=== PATIENT | female | born 1950 | race African-American/Black ===

== ENCOUNTER 2020-01-12 10:52 | Inpatient (IN) | payer OTHER ==
[~2020-01-12] VITALS: Ht 162.6 cm; Wt 92.6 kg
[2020-01-12] MEDS ORDERED: ASPirin 81 mg TAB PO ONE (11:15)
[2020-01-12 11:24] LABS: Basophils # (auto) 0 10 ^3/uL (0-0.2); Basophils % (auto) 0.5 % (0.0-2.0); Eosinophils # (auto) 0.3 10 ^3/uL (0-0.8); Hemoglobin 9.2 g/dL (12.2-16.2); Lymphocytes # (auto) 1.2 10 ^3/uL (0.4-5.4); Mean Corpuscular Hgb Conc. 30.9 g/dL (32.0-36.0); Monocytes # (auto) 0.4 10 ^3/uL (0-1.3)
[2020-01-12 11:25] LABS: Eosinophils % (auto) 3.5 % (0.0-7.0); Hematocrit 29.6 % (36.0-46.0); Lymphocytes % (auto) 14.2 % (10.0-50.0); Mean Corpuscular Hemoglobin 20.5 pg (28.0-32.0); Mean Corpuscular Volume 66.1 fL (80.0-100.0); Monocytes % (auto) 4.7 % (0.0-12.0); Neutrophils # (auto) 6.7 10 ^3/uL (1.6-8.6); Neutrophils % (auto) 77.1 % (37.0-80.0); Nucleated Red Blood Cells % 0.1 %; Platelet Count (auto) 371 10^3/uL (140-450); Red Blood Cells 4.48 10^6/uL (4.0-5.20); White Blood Cell 8.7 10^3/uL (4.4-10.8)
[2020-01-12 11:27] LABS: Red Cell Distribution Width 20.1 % (11.8-14.3)
[2020-01-12 11:41] LABS: Albumin 3.3 g/dL (3.4-5.0); Calcium 8.3 mg/dL (8.5-10.1); Magnesium 2.1 mg/dL (1.6-2.6); Potassium 3.4 mmol/L (3.5-5.1)
[2020-01-12 11:49] LABS: BUN/Creatinine Ratio 9.9; Bilirubin, Total 0.3 mg/dL (0.2-1.0); Total Protein 7.6 g/dL (6.4-8.2)
[2020-01-12] MEDS ORDERED: MORPHINE SULF INJ 2 MG/ML SYRINGE 1ML IV PRN (13:15)
[2020-01-12] MEDS ORDERED: ACETAMINOPHEN 500 MG TAB PO PRN (13:15)
[2020-01-12] MEDS ORDERED: IPRATROPIUM BROM 0.5 MG/2.5ML INH SOL NEB PRN (13:15)
[2020-01-12] MEDS ORDERED: ALBUTEROL SULF 2.5 MG/0.5ML(0.5%) NEB SOLN NEB PRN (13:15)
[2020-01-12] MEDS ORDERED: ONDANSETRON HCL 4 MG/2 ML VIAL IV PRN (13:15)
[2020-01-12] MEDS ORDERED: SOD CHL 0.9%/ KCL 40MEQ 1,000 ML IV ONE (13:15)
[2020-01-12] MEDS ORDERED: NITROGLYCERIN 0.4 MG SL TAB SL PRN (13:15)
[2020-01-12] MEDS ORDERED: IOHEXOL 350 MG/ML 100ML IJ ONE (13:36)
[2020-01-12 13:48] LABS: % Iron Saturation 8.6 % (15-50)
[2020-01-12 13:50] LABS: Cholesterol 156 mg/dL (< 200); HDL Cholesterol 38 mg/dL (40-59); LDL Cholesterol 106 mg/dL (< 100); Triglycerides 88 mg/dL (< 150)
[2020-01-12] MEDS: cefTRIAXone 1GM/50ML D5W 50 ML IV SCH (14:12)
[2020-01-12] MEDS: HYDROcodone-ACET 5/325MG TAB PO PRN ×2 (14:12→21:13)
[2020-01-12] MEDS: AZITHROMYCIN 500MG/ 250ML 250 ML IV SCH (15:14)
[2020-01-12 15:35] VITALS: BP 160/95
[2020-01-12 16:27] VITALS: BP 161/70
[2020-01-12] MEDS: ENALAPRIL MALEATE 2.5 MG TAB PO PRN (18:07)
[2020-01-12] MEDS: MORPHINE SULF INJ 2 MG/ML SYRINGE 1ML IV PRN ×2 (18:19→23:16)
[2020-01-12] MEDS: FERROUS SULFATE 325 MG TAB PO SCH (18:19)
[2020-01-12] MEDS: IPRATROPIUM BROM 0.5 MG/2.5ML INH SOL NEB SCH (19:58)
[2020-01-12] MEDS: ALBUTEROL SULF 2.5 MG/0.5ML(0.5%) NEB SOLN NEB SCH (19:58)
[2020-01-12 22:00] VITALS: BP 138/67
[2020-01-13] MEDS: HYDROcodone-ACET 5/325MG TAB PO PRN (03:47)
[2020-01-13 05:00] VITALS: BP 115/68
[2020-01-13] MEDS: ALBUTEROL SULF 2.5 MG/0.5ML(0.5%) NEB SOLN NEB SCH ×3 (06:13→19:05)
[2020-01-13] MEDS: IPRATROPIUM BROM 0.5 MG/2.5ML INH SOL NEB SCH ×3 (06:13→19:05)
[2020-01-13] MEDS: FERROUS SULFATE 325 MG TAB PO SCH ×2 (08:20→18:30)
[2020-01-13] MEDS: cefTRIAXone 1GM/50ML D5W 50 ML IV SCH (08:30)
[2020-01-13] MEDS: MORPHINE SULF INJ 2 MG/ML SYRINGE 1ML IV PRN ×3 (08:45→23:58)
[2020-01-13] MEDS: amLODIPine BESYLATE 5 MG TAB PO SCH (10:00)
[2020-01-13 10:10] VITALS: BP 104/59
[2020-01-13] MEDS: FAMOTIDINE 20 MG TAB PO SCH (11:19)
[2020-01-13] MEDS: AZITHROMYCIN 500MG/ 250ML 250 ML IV SCH (11:19)
[2020-01-13] MEDS ORDERED: POTASSIUM EFFERVESENT TAB 25 MEQ PO ONE (11:30)
[2020-01-13 12:35] VITALS: BP 111/67
[2020-01-13 17:00] VITALS: BP 142/73
[2020-01-13 20:23] LABS: Urine Bacteria NONE SEEN /hpf (None Seen); Urine Blood Negative /uL (Negative); Urine Specific Gravity 1.018 (1.001-1.035); Urine WBC 1 /hpf (0 - 5)
[2020-01-13 22:00] VITALS: BP 152/77
[2020-01-14 05:00] VITALS: BP 162/73
[2020-01-14] MEDS: ENALAPRIL MALEATE 2.5 MG TAB PO PRN (05:04)
[2020-01-14 07:01] LABS: Basophils # (auto) 0.1 10 ^3/uL (0-0.2); Basophils % (auto) 0.9 % (0.0-2.0); Eosinophils # (auto) 0.3 10 ^3/uL (0-0.8); Eosinophils % (auto) 4.4 % (0.0-7.0); Hematocrit 26.7 % (36.0-46.0); Hemoglobin 8.3 g/dL (12.2-16.2); Lymphocytes # (auto) 1.3 10 ^3/uL (0.4-5.4); Lymphocytes % (auto) 18.3 % (10.0-50.0); Mean Corpuscular Hemoglobin 20.4 pg (28.0-32.0); Mean Corpuscular Volume 65.6 fL (80.0-100.0); Monocytes # (auto) 0.4 10 ^3/uL (0-1.3); Monocytes % (auto) 5.7 % (0.0-12.0); Neutrophils % (auto) 70.7 % (37.0-80.0); Platelet Count (auto) 344 10^3/uL (140-450); Red Blood Cells 4.07 10^6/uL (4.0-5.20); Red Cell Distribution Width 20.4 % (11.8-14.3)
[2020-01-14] MEDS: IPRATROPIUM BROM 0.5 MG/2.5ML INH SOL NEB SCH ×3 (07:11→18:49)
[2020-01-14] MEDS: ALBUTEROL SULF 2.5 MG/0.5ML(0.5%) NEB SOLN NEB SCH ×3 (07:12→18:49)
[2020-01-14 07:13] LABS: Potassium 3.9 mmol/L (3.5-5.1)
[2020-01-14 07:18] LABS: INR 0.94 (0.9-1.15)
[2020-01-14 07:25] LABS: BUN/Creatinine Ratio 13.5; Calcium 8.4 mg/dL (8.5-10.1)
[2020-01-14 08:42] VITALS: BP 149/69
[2020-01-14] MEDS: FERROUS SULFATE 325 MG TAB PO SCH ×2 (08:45→16:52)
[2020-01-14] MEDS: amLODIPine BESYLATE 5 MG TAB PO SCH (08:46)
[2020-01-14] MEDS: FAMOTIDINE 20 MG TAB PO SCH (08:46)
[2020-01-14] MEDS: cefTRIAXone 1GM/50ML D5W 50 ML IV SCH (08:47)
[2020-01-14] MEDS: MORPHINE SULF INJ 2 MG/ML SYRINGE 1ML IV PRN (08:48)
[2020-01-14] MEDS: HYDROcodone-ACET 5/325MG TAB PO PRN ×3 (11:23→20:38)
[2020-01-14] MEDS: AZITHROMYCIN 500MG/ 250ML 250 ML IV SCH (11:23)
[2020-01-14 13:01] VITALS: BP 141/70
[2020-01-14 16:29] VITALS: BP 142/68
[2020-01-14 20:00] VITALS: BP 133/59
[2020-01-14 22:00] VITALS: BP 133/59
[2020-01-15] VITALS (8 sets, daily range): BP systolic 144–162; BP diastolic 63–80
[2020-01-15] MEDS: MORPHINE SULF INJ 2 MG/ML SYRINGE 1ML IV PRN ×3 (03:15→16:10)
[2020-01-15] MEDS: ENALAPRIL MALEATE 2.5 MG TAB PO PRN ×2 (05:02→16:33)
[2020-01-15] MEDS: ALBUTEROL SULF 2.5 MG/0.5ML(0.5%) NEB SOLN NEB SCH ×3 (06:06→19:00)
[2020-01-15] MEDS: IPRATROPIUM BROM 0.5 MG/2.5ML INH SOL NEB SCH ×3 (06:06→19:00)
[2020-01-15] MEDS: FERROUS SULFATE 325 MG TAB PO SCH ×2 (08:50→17:44)
[2020-01-15] MEDS: FAMOTIDINE 20 MG TAB PO SCH (09:16)
[2020-01-15] MEDS: AZITHROMYCIN 250 MG TAB PO SCH (09:17)
[2020-01-15] MEDS: amLODIPine BESYLATE 5 MG TAB PO SCH (09:18)
[2020-01-15] MEDS ORDERED: ADENOSINE 82 MG in GIVE UN-DILUTED 0 ML IV STA (10:23)
[2020-01-16] VITALS (8 sets, daily range): BP systolic 124–162; BP diastolic 61–84
[2020-01-16] MEDS: ALBUTEROL SULF 2.5 MG/0.5ML(0.5%) NEB SOLN NEB SCH ×3 (06:00→19:08)
[2020-01-16] MEDS: IPRATROPIUM BROM 0.5 MG/2.5ML INH SOL NEB SCH ×3 (06:00→19:07)
[2020-01-16 07:20] LABS: Basophils # (auto) 0 10 ^3/uL (0-0.2); Basophils % (auto) 0.6 % (0.0-2.0); Hemoglobin 9.4 g/dL (12.2-16.2); Monocytes # (auto) 0.4 10 ^3/uL (0-1.3); Nucleated Red Blood Cells % 0.1 %
[2020-01-16 07:23] LABS: Eosinophils # (auto) 0.2 10 ^3/uL (0-0.8); Eosinophils % (auto) 4.1 % (0.0-7.0); Hematocrit 30.9 % (36.0-46.0); Lymphocytes # (auto) 1.2 10 ^3/uL (0.4-5.4); Lymphocytes % (auto) 20.9 % (10.0-50.0); Mean Corpuscular Hemoglobin 20.3 pg (28.0-32.0); Mean Corpuscular Hgb Conc. 30.4 g/dL (32.0-36.0); Mean Corpuscular Volume 66.8 fL (80.0-100.0); Monocytes % (auto) 6.8 % (0.0-12.0); Neutrophils # (auto) 3.9 10 ^3/uL (1.6-8.6); Neutrophils % (auto) 67.6 % (37.0-80.0); Platelet Count (auto) 355 10^3/uL (140-450); Red Blood Cells 4.62 10^6/uL (4.0-5.20); Red Cell Distribution Width 19.9 % (11.8-14.3); White Blood Cell 5.7 10^3/uL (4.4-10.8)
[2020-01-16 07:35] LABS: Calcium 8.5 mg/dL (8.5-10.1)
[2020-01-16 07:37] LABS: BUN/Creatinine Ratio 10.3
[2020-01-16] MEDS: MORPHINE SULF INJ 2 MG/ML SYRINGE 1ML IV PRN ×3 (07:47→17:45)
[2020-01-16] MEDS: FERROUS SULFATE 325 MG TAB PO SCH ×2 (07:47→17:44)
[2020-01-16] MEDS ORDERED: GOLYTELY 4L KIT PO ONE (10:30)
[2020-01-16] MEDS: FAMOTIDINE 20 MG TAB PO SCH (10:38)
[2020-01-16] MEDS: amLODIPine BESYLATE 5 MG TAB PO SCH (10:39)
[2020-01-16] MEDS: AZITHROMYCIN 250 MG TAB PO SCH (10:39)
[2020-01-16] MEDS: HYDROcodone-ACET 5/325MG TAB PO PRN (22:25)
[2020-01-17] MEDS: HYDROcodone-ACET 5/325MG TAB PO PRN ×2 (04:15→18:52)
[2020-01-17 05:00] VITALS: BP 149/60
[2020-01-17] MEDS ORDERED: GOLYTELY 4L KIT PO ONE (06:00)
[2020-01-17] MEDS: ALBUTEROL SULF 2.5 MG/0.5ML(0.5%) NEB SOLN NEB SCH ×3 (06:26→19:04)
[2020-01-17] MEDS: IPRATROPIUM BROM 0.5 MG/2.5ML INH SOL NEB SCH ×3 (06:26→19:04)
[2020-01-17] MEDS: FERROUS SULFATE 325 MG TAB PO SCH ×2 (08:00→18:48)
[2020-01-17 08:33] LABS: Eosinophils # (auto) 0.2 10 ^3/uL (0-0.8); Hematocrit 29.1 % (36.0-46.0); Lymphocytes # (auto) 0.8 10 ^3/uL (0.4-5.4); Mean Corpuscular Hemoglobin 20.5 pg (28.0-32.0); Monocytes # (auto) 0.3 10 ^3/uL (0-1.3); Nucleated Red Blood Cells % 0.1 %; Red Blood Cells 4.39 10^6/uL (4.0-5.20); White Blood Cell 5.6 10^3/uL (4.4-10.8)
[2020-01-17 08:35] LABS: Basophils # (auto) 0 10 ^3/uL (0-0.2); Basophils % (auto) 0.8 % (0.0-2.0); Eosinophils % (auto) 4.2 % (0.0-7.0); Lymphocytes % (auto) 14.1 % (10.0-50.0); Mean Corpuscular Volume 66.2 fL (80.0-100.0); Monocytes % (auto) 5.4 % (0.0-12.0); Neutrophils # (auto) 4.2 10 ^3/uL (1.6-8.6); Neutrophils % (auto) 75.5 % (37.0-80.0); Platelet Count (auto) 337 10^3/uL (140-450)
[2020-01-17 08:52] LABS: Calcium 8.4 mg/dL (8.5-10.1); Potassium 3.8 mmol/L (3.5-5.1)
[2020-01-17 08:57] LABS: BUN/Creatinine Ratio 9.3
[2020-01-17 09:00] VITALS: BP 126/75
[2020-01-17] MEDS: FAMOTIDINE 20 MG TAB PO SCH (10:00)
[2020-01-17] MEDS: AZITHROMYCIN 250 MG TAB PO SCH (10:00)
[2020-01-17] MEDS: amLODIPine BESYLATE 5 MG TAB PO SCH (10:00)
[2020-01-17] MEDS ORDERED: LIDOCAINE VISCOUS 2% 15ML UD ONE (10:51)
[2020-01-17] MEDS ORDERED: diphenhdrAMINE HCL 50 MG/1 ML VL ONE (10:52)
[2020-01-17] MEDS: fentaNYL CITRATE 100 MCG/2 ML VL ONE ×3 (11:09→11:16)
[2020-01-17] MEDS: MIDAZOLAM HCL 5 MG/ML-1ML VIAL ONE ×4 (11:09→11:24)
[2020-01-17] MEDS ORDERED: fentaNYL CITRATE 100 MCG/2 ML VL ONE (11:24)
[2020-01-17 12:58] VITALS: BP 129/69
[2020-01-17 16:45] VITALS: BP 150/81
[2020-01-17] MEDS: MORPHINE SULF INJ 2 MG/ML SYRINGE 1ML IV PRN (21:57)
[2020-01-17 22:00] VITALS: BP 146/85
[2020-01-18] MEDS ORDERED: TEMAZEPAM 15 MG CAP PO ONE (00:45)
[2020-01-18 05:00] VITALS: BP 141/73
[2020-01-18 07:31] LABS: Basophils # (auto) 0 10 ^3/uL (0-0.2); Basophils % (auto) 0.8 % (0.0-2.0); Eosinophils # (auto) 0.3 10 ^3/uL (0-0.8); Monocytes # (auto) 0.4 10 ^3/uL (0-1.3); Neutrophils # (auto) 3.9 10 ^3/uL (1.6-8.6); Nucleated Red Blood Cells % 0.1 %
[2020-01-18 07:33] LABS: Eosinophils % (auto) 5.3 % (0.0-7.0); Hematocrit 29.6 % (36.0-46.0); Hemoglobin 9.2 g/dL (12.2-16.2); Lymphocytes % (auto) 18.3 % (10.0-50.0); Mean Corpuscular Hgb Conc. 31.2 g/dL (32.0-36.0); Mean Corpuscular Volume 67.2 fL (80.0-100.0); Monocytes % (auto) 6.5 % (0.0-12.0); Neutrophils % (auto) 69.1 % (37.0-80.0); Platelet Count (auto) 350 10^3/uL (140-450); White Blood Cell 5.7 10^3/uL (4.4-10.8)
[2020-01-18] MEDS: ALBUTEROL SULF 2.5 MG/0.5ML(0.5%) NEB SOLN NEB SCH ×3 (07:44→19:01)
[2020-01-18] MEDS: IPRATROPIUM BROM 0.5 MG/2.5ML INH SOL NEB SCH ×3 (07:44→19:01)
[2020-01-18 07:45] LABS: Red Cell Distribution Width 20.5 % (11.8-14.3)
[2020-01-18 07:49] LABS: Potassium 4.2 mmol/L (3.5-5.1)
[2020-01-18 07:55] LABS: BUN/Creatinine Ratio 12.3; Calcium 8.3 mg/dL (8.5-10.1)
[2020-01-18 08:33] VITALS: BP 153/69
[2020-01-18] MEDS: FERROUS SULFATE 325 MG TAB PO SCH (09:19)
[2020-01-18] MEDS: FAMOTIDINE 20 MG TAB PO SCH (09:19)
[2020-01-18] MEDS: amLODIPine BESYLATE 5 MG TAB PO SCH (09:20)
[2020-01-18] MEDS: AZITHROMYCIN 250 MG TAB PO SCH (09:20)
[2020-01-18] MEDS: MORPHINE SULF INJ 2 MG/ML SYRINGE 1ML IV PRN ×2 (09:57→15:32)
[2020-01-18 12:16] VITALS: BP 150/66
[2020-01-18 13:00] VITALS: BP 119/49
[2020-01-18 17:00] VITALS: BP 146/69
[2020-01-18] MEDS: HYDROcodone-ACET 5/325MG TAB PO PRN (20:11)
[2020-01-18 23:45] VITALS: BP 130/88
[2020-01-19] MEDS ORDERED: TEMAZEPAM 15 MG CAP PO ONE (00:15)
[2020-01-19] MEDS: HYDROcodone-ACET 5/325MG TAB PO PRN ×2 (04:11→14:22)
[2020-01-19 05:00] VITALS: BP 148/78
[2020-01-19] MEDS: IPRATROPIUM BROM 0.5 MG/2.5ML INH SOL NEB SCH ×2 (06:29→11:22)
[2020-01-19] MEDS: ALBUTEROL SULF 2.5 MG/0.5ML(0.5%) NEB SOLN NEB SCH ×2 (06:29→11:22)
[2020-01-19] MEDS: FERROUS SULFATE 325 MG TAB PO SCH (08:09)
[2020-01-19 09:00] VITALS: BP 143/93
[2020-01-19] MEDS: amLODIPine BESYLATE 5 MG TAB PO SCH (10:02)
[2020-01-19] MEDS: FAMOTIDINE 20 MG TAB PO SCH (10:02)
[2020-01-19] MEDS: AZITHROMYCIN 250 MG TAB PO SCH (10:02)
[2020-01-19 11:22] LABS: Eosinophils # (auto) 0.3 10 ^3/uL (0-0.8); Mean Corpuscular Hgb Conc. 30.7 g/dL (32.0-36.0); Neutrophils # (auto) 3.7 10 ^3/uL (1.6-8.6)
[2020-01-19 11:25] LABS: Basophils # (auto) 0 10 ^3/uL (0-0.2); Basophils % (auto) 0.7 % (0.0-2.0); Eosinophils % (auto) 5.5 % (0.0-7.0); Hematocrit 31.8 % (36.0-46.0); Hemoglobin 9.8 g/dL (12.2-16.2); Lymphocytes # (auto) 1.1 10 ^3/uL (0.4-5.4); Lymphocytes % (auto) 19.4 % (10.0-50.0); Mean Corpuscular Hemoglobin 20.8 pg (28.0-32.0); Mean Corpuscular Volume 67.8 fL (80.0-100.0); Monocytes # (auto) 0.4 10 ^3/uL (0-1.3); Monocytes % (auto) 6.6 % (0.0-12.0); Neutrophils % (auto) 67.8 % (37.0-80.0); Nucleated Red Blood Cells % 0.2 %; Platelet Count (auto) 364 10^3/uL (140-450); Red Blood Cells 4.69 10^6/uL (4.0-5.20); White Blood Cell 5.5 10^3/uL (4.4-10.8)
[2020-01-19 11:34] LABS: Red Cell Distribution Width 21.5 % (11.8-14.3)
[2020-01-19 11:38] LABS: Calcium 9.1 mg/dL (8.5-10.1); Potassium 4.3 mmol/L (3.5-5.1)
[2020-01-19 11:41] LABS: BUN/Creatinine Ratio 13.8
[2020-01-19 11:43] VITALS: BP 143/93
[2020-01-19 13:00] VITALS: BP 157/103
[2020-01-19 16:38] VITALS: BP 145/76
== END 2020-01-19 18:15 | disposition home or self-care (01) | DRG 253 ==
LOC: ER 10:52 → TELE-WESTW 10:53
PROVIDERS: ADMIT Nurse Practitioner Acute Care; ATTEND Internal Medicine
PROC: 0DBN8ZX Excision of Sigmoid Colon, Via Natural or Artificial Opening Endoscopic, Diagnostic (ICD-10-PCS; 2020-01-17)
PROC: 0DJ08ZZ Inspection of Upper Intestinal Tract, Via Natural or Artificial Opening Endoscopic (ICD-10-PCS; principal; 2020-01-17 11:01)
PROC: 0DBM8ZX Excision of Descending Colon, Via Natural or Artificial Opening Endoscopic, Diagnostic (ICD-10-PCS; 2020-01-17 11:01)
DX: K62.5 Hemorrhage of anus and rectum (principal); I21.A1 Myocardial infarction type 2; J44.1 Chronic obstructive pulmonary disease with (acute) exacerbation; E66.01 Morbid (severe) obesity due to excess calories; D62 Acute posthemorrhagic anemia; K57.31 Diverticulosis of large intestine without perforation or abscess with bleeding; E87.6 Hypokalemia; Z20.828 Contact with and (suspected) exposure to other viral communicable diseases; F17.210 Nicotine dependence, cigarettes, uncomplicated; I10 Essential (primary) hypertension; K44.9 Diaphragmatic hernia without obstruction or gangrene; D63.8 Anemia in other chronic diseases classified elsewhere; K63.5 Polyp of colon; Z68.36 Body mass index [BMI] 36.0-36.9, adult; Z90.710 Acquired absence of both cervix and uterus; Z80.9 Family history of malignant neoplasm, unspecified; Z79.899 Other long term (current) drug therapy
CPT/HCPCS: 36415; 43235; 45380; 71045; 71275; 74176; 78452; 80048; 80053; 80061; 81001; 82270; 83036; 83540; 83550; 83735; 83880; 84443; 84484; 85025; 85379; 85610; 87070; 87205; 87426; 93005; 93017; 93306; 93970; 94640; 96365; 96367; 96375; G0378; J0153; J0696; J2250

== ENCOUNTER 2023-02-24 16:42 | Inpatient (IN) | payer MEDICARE, MEDICAID ==
[~2023-02-24] VITALS: Ht 167.6 cm; Wt 89.8 kg
[2023-02-24 17:48] LABS: Basophils # (auto) 0 10 ^3/uL (0-0.2); Basophils % (auto) 0.4 % (0.0-2.0); Eosinophils # (auto) 0.1 10 ^3/uL (0-0.8); Eosinophils % (auto) 0.8 % (0.0-7.0); Hematocrit 36.1 % (36.0-46.0); Hemoglobin 11.2 g/dL (12.2-16.2); Lymphocytes # (auto) 0.9 10 ^3/uL (0.4-5.4); Mean Corpuscular Hgb Conc. 31.1 g/dL (32.0-36.0); Monocytes # (auto) 0.5 10 ^3/uL (0-1.3); Neutrophils # (auto) 6.7 10 ^3/uL (1.6-8.6); Nucleated Red Blood Cells % 0.1 %; Red Cell Distribution Width 18.8 % (11.8-14.3)
[2023-02-24 17:49] LABS: Lymphocytes % (auto) 10.8 % (10.0-50.0); Mean Corpuscular Hemoglobin 22.3 pg (28.0-32.0); Mean Corpuscular Volume 71.6 fL (80.0-100.0); Monocytes % (auto) 6.5 % (0.0-12.0); Neutrophils % (auto) 81.5 % (37.0-80.0); Red Blood Cells 5.04 10^6/uL (4.0-5.20); White Blood Cell 8.3 10^3/uL (4.4-10.8)
[2023-02-24 18:00] LABS: Alanine Aminotransferase 28 U/L (7-40); Albumin 4.6 g/dL (3.2-4.8); Alkaline Phosphatase 155 U/L (46-116); Anion Gap 10 (5-15); Aspartate Aminotransferase 43 U/L (13-40); BUN/Creatinine Ratio 9.6 (10.0-20.0); Blood Urea Nitrogen 13 mg/dL (9-23); Calcium 8.8 mg/dL (8.7-10.4); Carbon Dioxide 25 mmol/L (20-30); Chloride 110 mmol/L (98-107); Glucose 105 mg/dL (74-106); Magnesium 1.7 mg/dL (1.6-2.6); Potassium 3.6 mmol/L (3.5-5.1); Sodium 145 mmol/L (136-145)
[2023-02-24 18:01] LABS: Bilirubin, Total 0.7 mg/dL (0.2-1.0); Total Protein 7.9 g/dL (5.7-8.2)
[2023-02-24 18:18] LABS: Lactic Acid w/Reflex 2.5 mmol/L (0.4-2.0)
[2023-02-24] MEDS ORDERED: VANCOMYCIN HCL 1000 MG VL IV ONE (19:00)
[2023-02-24] MEDS ORDERED: cefTRIAXone 1GM/50ML D5W 50 ML IV ONE (19:00)
[2023-02-24] MEDS ORDERED: SODIUM CHLORIDE 0.9% 1,000 ML IV ONE (19:00)
[2023-02-24 20:09] LABS: COVID19 ANTIGEN SOFIA FIA POSITIVE (NEGATIVE)
[2023-02-24] MEDS ORDERED: REMDESIVIR PER PHARMACY 0 ML IV SCH (20:30)
[2023-02-24] MEDS ORDERED: methylPREDNISolone SOD SUCC 125 MG/2 ML VL IV ONE (20:30)
[2023-02-24] MEDS ORDERED: IOHEXOL 350 MG/ML 100ML IJ ONE (20:54)
[2023-02-24 21:00] VITALS: PULSE 73; RESP 25; O2SAT 92
[2023-02-24] MEDS ORDERED: ACETAMINOPHEN 500 MG TAB PO PRN (21:45)
[2023-02-24] MEDS ORDERED: ONDANSETRON HCL 4 MG/2 ML VIAL IV PRN (22:00)
[2023-02-24] MEDS ORDERED: MORPHINE SULFATE INJ 2 MG/ml SYRG IV PRN (22:00)
[2023-02-24] MEDS ORDERED: NITROGLYCERIN 0.4 MG SL TAB SL PRN (22:00)
[2023-02-24] MEDS ORDERED: ENOXAPARIN SOD 40 MG/0.4 ML SYRINGE SC SCH (22:00)
[2023-02-24 22:13] LABS: Magnesium 1.8 mg/dL (1.6-2.6)
[2023-02-24 22:18] LABS: Thyroid Stimulating Hormone 0.93 uIU/mL (0.358-3.74)
[2023-02-24 22:21] LABS: CRP High Sensitivity 0.6 mg/dL (<1.0)
[2023-02-24] MEDS: DONEPEZIL HYDROCHLORIDE 5 MG TAB PO SCH (22:40)
[2023-02-24] MEDS: ATORVASTATIN 20 MG TAB PO SCH (22:40)
[2023-02-24] MEDS: METOPROLOL TARTRATE 25 MG TAB PO SCH (22:41)
[2023-02-24] MEDS ORDERED: VANCOMYCIN 1GM/250ML 250 ML IV ONE (22:45)
[2023-02-24 22:47] LABS: Rapid Influenza A Negative (Negative); Rapid Influenza B Negative (Negative)
[2023-02-24 23:36] VITALS: BP 138/59; PULSE 71; RESP 24; TEMP 98.1; O2SAT 93
[2023-02-25] MEDS ORDERED: IOHEXOL 350 MG/ML 100ML IJ ONE (04:08)
[2023-02-25 05:57] LABS: Basophils # (auto) 0 10 ^3/uL (0-0.2); Basophils % (auto) 0.4 % (0.0-2.0); Eosinophils # (auto) 0 10 ^3/uL (0-0.8); Hematocrit 35.7 % (36.0-46.0); Hemoglobin 10.7 g/dL (12.2-16.2); Lymphocytes # (auto) 0.6 10 ^3/uL (0.4-5.4); Lymphocytes % (auto) 9.6 % (10.0-50.0); Mean Corpuscular Hemoglobin 22.5 pg (28.0-32.0); Mean Corpuscular Hgb Conc. 29.9 g/dL (32.0-36.0); Mean Corpuscular Volume 75.5 fL (80.0-100.0); Monocytes # (auto) 0.2 10 ^3/uL (0-1.3); Monocytes % (auto) 2.6 % (0.0-12.0); Neutrophils # (auto) 5.8 10 ^3/uL (1.6-8.6); Neutrophils % (auto) 87.4 % (37.0-80.0); Red Blood Cells 4.73 10^6/uL (4.0-5.20); Red Cell Distribution Width 19.9 % (11.8-14.3); White Blood Cell 6.7 10^3/uL (4.4-10.8)
[2023-02-25 06:08] LABS: Alanine Aminotransferase 20 U/L (7-40); Alkaline Phosphatase 115 U/L (46-116); Anion Gap 11 (5-15); Aspartate Aminotransferase 34 U/L (13-40); BUN/Creatinine Ratio 8.5 (10.0-20.0); Blood Urea Nitrogen 11 mg/dL (9-23); Calcium 8.3 mg/dL (8.5-10.1); Carbon Dioxide 22 mmol/L (20-30); Chloride 109 mmol/L (98-107); Glucose 155 mg/dL (74-106); Potassium 3.9 mmol/L (3.5-5.1); Sodium 142 mmol/L (136-145)
[2023-02-25 06:09] LABS: Bilirubin, Total 0.4 mg/dL (0.2-1.0); Total Protein 7.1 g/dL (5.7-8.2)
[2023-02-25 07:33] VITALS: PULSE 58; RESP 18; O2SAT 99
[2023-02-25 08:55] LABS: Urine Bacteria NONE SEEN /hpf (None Seen); Urine Blood 1+ /uL (Negative); Urine Clarity Clear (Clear); Urine Color Colorless (Yellow); Urine Protein, UAD 1+ (Negative); Urine Urobilinogen Normal (Negative); Urine WBC 19 /hpf (0 - 5); Urine pH 5.5 (5.0-8.0)
[2023-02-25] MEDS ORDERED: REMDESIVIR 200 MG in NS 210ml LOADING DOSE ADULT IV ONE (09:00)
[2023-02-25] MEDS ORDERED: LOSARTAN POTASSIUM 25 MG TAB PO SCH (10:00)
[2023-02-25] MEDS: METOPROLOL TARTRATE 25 MG TAB PO SCH ×2 (10:00→21:37)
[2023-02-25] MEDS ORDERED: TRIAMTERENE/HCTZ 75/50MG TABLET PO SCH (10:00)
[2023-02-25] MEDS: DexAMETHasone SOD PHOS 10MG/1ML VIAL INJ IV SCH (10:36)
[2023-02-25] MEDS: ASCORBIC ACID 1,000 MG TAB PO SCH (10:36)
[2023-02-25] MEDS: ZINC SULFATE 220mg CAP or TAB PO SCH (10:36)
[2023-02-25] MEDS: ENOXAPARIN SOD 40 MG/0.4 ML SYRINGE SC SCH (10:36)
[2023-02-25] MEDS: CHOLECALCIFEROL (VITD3) 2,000 UNIT CAP/TAB PO SCH (10:37)
[2023-02-25 10:45] VITALS: O2SAT 93
[2023-02-25] MEDS ORDERED: PANTOPRAZOLE 40 MG/10 ML VIAL INJ IV ONE (10:45)
[2023-02-25] MEDS ORDERED: FUROSEMIDE 20 MG/2 ML VIAL IV ONE (10:45)
[2023-02-25 10:53] LABS: Base Excess -5.3 mmol/L (-2.0-2.0)
[2023-02-25] MEDS: AZITHROMYCIN 500MG/ 250ML 250 ML IV SCH (12:33)
[2023-02-25 19:35] VITALS: PULSE 68; RESP 20; O2SAT 95
[2023-02-25 21:00] VITALS: O2SAT 95
[2023-02-25] MEDS: ALBUTEROL SULF HFA 90MCG INH 200DOSE IN PRN (21:11)
[2023-02-25] MEDS: ATORVASTATIN 20 MG TAB PO SCH (21:36)
[2023-02-25] MEDS: DONEPEZIL HYDROCHLORIDE 5 MG TAB PO SCH (21:36)
[2023-02-26] VITALS (8 sets, daily range): BP systolic 123; BP diastolic 53; PULSE 55–88; RESP 18–33; TEMP 98.4; O2SAT 95–99
[2023-02-26 05:31] LABS: Alanine Aminotransferase 22 U/L (7-40); Albumin 3.9 g/dL (3.2-4.8); Alkaline Phosphatase 106 U/L (46-116); Anion Gap 8 (5-15); Aspartate Aminotransferase 32 U/L (13-40); BUN/Creatinine Ratio 15.9 (10.0-20.0); Blood Urea Nitrogen 22 mg/dL (9-23); Calcium 8.4 mg/dL (8.5-10.1); Carbon Dioxide 26 mmol/L (20-30); Chloride 112 mmol/L (98-107); Glucose 110 mg/dL (74-106); Potassium 3.8 mmol/L (3.5-5.1); Sodium 146 mmol/L (136-145)
[2023-02-26 05:32] LABS: Bilirubin, Total 0.4 mg/dL (0.2-1.0); Total Protein 6.8 g/dL (5.7-8.2)
[2023-02-26 06:02] LABS: Basophils # (auto) 0 10 ^3/uL (0-0.2); Eosinophils # (auto) 0 10 ^3/uL (0-0.8); Hemoglobin 9.9 g/dL (12.2-16.2); Monocytes # (auto) 0.6 10 ^3/uL (0-1.3); Nucleated Red Blood Cells % 0.2 %; White Blood Cell 7.7 10^3/uL (4.4-10.8)
[2023-02-26 06:04] LABS: Basophils % (auto) 0.3 % (0.0-2.0); Hematocrit 32.4 % (36.0-46.0); Lymphocytes # (auto) 0.7 10 ^3/uL (0.4-5.4); Lymphocytes % (auto) 9.4 % (10.0-50.0); Mean Corpuscular Hgb Conc. 30.5 g/dL (32.0-36.0); Mean Corpuscular Volume 72.4 fL (80.0-100.0); Monocytes % (auto) 7.9 % (0.0-12.0); Neutrophils # (auto) 6.3 10 ^3/uL (1.6-8.6); Neutrophils % (auto) 82.4 % (37.0-80.0); Red Blood Cells 4.48 10^6/uL (4.0-5.20)
[2023-02-26] MEDS: ALBUTEROL SULF HFA 90MCG INH 200DOSE IN PRN ×2 (06:59→18:49)
[2023-02-26] MEDS ORDERED: PANTOPRAZOLE 40 MG/10 ML VIAL INJ IV SCH (10:00)
[2023-02-26] MEDS: ENOXAPARIN SOD 40 MG/0.4 ML SYRINGE SC SCH (10:09)
[2023-02-26] MEDS: DexAMETHasone SOD PHOS 10MG/1ML VIAL INJ IV SCH (10:09)
[2023-02-26] MEDS: ZINC SULFATE 220mg CAP or TAB PO SCH (10:13)
[2023-02-26] MEDS: CHOLECALCIFEROL (VITD3) 2,000 UNIT CAP/TAB PO SCH (10:13)
[2023-02-26] MEDS: ASCORBIC ACID 1,000 MG TAB PO SCH (10:13)
[2023-02-26] MEDS ORDERED: FUROSEMIDE 20 MG/2 ML VIAL IV ONE (10:30)
[2023-02-26] MEDS ORDERED: BUDESONIDE (INHALATION) 0.5 MG/2 ML NEB NEB ONE (10:45)
[2023-02-26] MEDS: METOPROLOL TARTRATE 25 MG TAB PO SCH ×2 (11:11→22:00)
[2023-02-26] MEDS: AZITHROMYCIN 500MG/ 250ML 250 ML IV SCH (11:11)
[2023-02-26] MEDS ORDERED: guaiFENesin 200 MG/10 ML UD PO PRN (11:15)
[2023-02-26] MEDS: REMDESIVIR 100mg 100 MG in SODIUM CHL 0.9% 230 ML IV SCH (15:42)
[2023-02-26] MEDS: Ensure HIGH Protein Chocolate 8oz Bottle PO SCH ×2 (16:10→19:26)
[2023-02-26] MEDS: BUDESONIDE (INHALATION) 0.5 MG/2 ML NEB NEB SCH (18:48)
[2023-02-26] MEDS: DONEPEZIL HYDROCHLORIDE 5 MG TAB PO SCH (22:33)
[2023-02-26] MEDS: ATORVASTATIN 20 MG TAB PO SCH (22:35)
[2023-02-27] VITALS (9 sets, daily range): BP systolic 104–131; BP diastolic 46–79; PULSE 50–70; RESP 17–20; TEMP 97.4–98.4; O2SAT 92–100
[2023-02-27 05:34] LABS: Alanine Aminotransferase 22 U/L (7-40); Albumin 3.7 g/dL (3.2-4.8); Anion Gap 7 (5-15); Aspartate Aminotransferase 27 U/L (13-40); Blood Urea Nitrogen 24 mg/dL (9-23); Calcium 8.5 mg/dL (8.5-10.1); Carbon Dioxide 28 mmol/L (20-30); Chloride 112 mmol/L (98-107); Glucose 96 mg/dL (74-106); Potassium 3.6 mmol/L (3.5-5.1); Sodium 147 mmol/L (136-145)
[2023-02-27 05:35] LABS: Bilirubin, Total 0.4 mg/dL (0.2-1.0); Total Protein 6.6 g/dL (5.7-8.2)
[2023-02-27 05:39] LABS: % Iron Saturation 25.7 % (15-50)
[2023-02-27 05:48] LABS: Basophils # (auto) 0 10 ^3/uL (0-0.2); Eosinophils # (auto) 0 10 ^3/uL (0-0.8); Mean Corpuscular Volume 72.5 fL (80.0-100.0); Nucleated Red Blood Cells % 0.1 %
[2023-02-27 05:52] LABS: Basophils % (auto) 0.4 % (0.0-2.0); Hematocrit 31.6 % (36.0-46.0); Hemoglobin 9.8 g/dL (12.2-16.2); Lymphocytes # (auto) 0.9 10 ^3/uL (0.4-5.4); Mean Corpuscular Hemoglobin 22.6 pg (28.0-32.0); Mean Corpuscular Hgb Conc. 31.1 g/dL (32.0-36.0); Monocytes # (auto) 0.5 10 ^3/uL (0-1.3); Monocytes % (auto) 7.9 % (0.0-12.0); Neutrophils # (auto) 4.8 10 ^3/uL (1.6-8.6); Neutrophils % (auto) 77.7 % (37.0-80.0); Red Blood Cells 4.36 10^6/uL (4.0-5.20); White Blood Cell 6.2 10^3/uL (4.4-10.8)
[2023-02-27 06:01] LABS: Alkaline Phosphatase 110 U/L (46-116)
[2023-02-27] MEDS: Ensure HIGH Protein Chocolate 8oz Bottle PO SCH ×3 (08:24→18:03)
[2023-02-27] MEDS ORDERED: FUROSEMIDE 20 MG/2 ML VIAL IV SCH (10:00)
[2023-02-27] MEDS: ENOXAPARIN SOD 40 MG/0.4 ML SYRINGE SC SCH (10:19)
[2023-02-27] MEDS: DexAMETHasone SOD PHOS 10MG/1ML VIAL INJ IV SCH (10:19)
[2023-02-27] MEDS: CHOLECALCIFEROL (VITD3) 2,000 UNIT CAP/TAB PO SCH (10:19)
[2023-02-27] MEDS: ZINC SULFATE 220mg CAP or TAB PO SCH (10:20)
[2023-02-27] MEDS: FUROSEMIDE 40 MG TAB PO SCH (10:20)
[2023-02-27] MEDS: AZITHROMYCIN 500MG/ 250ML 250 ML IV SCH (10:21)
[2023-02-27] MEDS: METOPROLOL TARTRATE 25 MG TAB PO SCH ×2 (10:21→21:09)
[2023-02-27] MEDS: REMDESIVIR 100mg 100 MG in SODIUM CHL 0.9% 230 ML IV SCH (15:27)
[2023-02-27] MEDS: ATORVASTATIN 20 MG TAB PO SCH (21:07)
[2023-02-27] MEDS: DOXYCYCLINE 100 MG TAB/CAP PO SCH (21:07)
[2023-02-27] MEDS: DONEPEZIL HYDROCHLORIDE 5 MG TAB PO SCH (21:08)
[2023-02-27] MEDS: BUDESONIDE (INHALATION) 0.5 MG/2 ML NEB NEB SCH (21:17)
[2023-02-28 05:00] VITALS: BP 146/51; PULSE 50; RESP 19; TEMP 98.6; O2SAT 99
[2023-02-28 05:35] LABS: Basophils # (auto) 0 10 ^3/uL (0-0.2); Eosinophils # (auto) 0 10 ^3/uL (0-0.8); Lymphocytes # (auto) 0.9 10 ^3/uL (0.4-5.4); Monocytes # (auto) 0.5 10 ^3/uL (0-1.3); Nucleated Red Blood Cells % 0.1 %
[2023-02-28 05:37] LABS: Basophils % (auto) 0.1 % (0.0-2.0); Hematocrit 32.1 % (36.0-46.0); Lymphocytes % (auto) 17.3 % (10.0-50.0); Mean Corpuscular Hemoglobin 22.6 pg (28.0-32.0); Mean Corpuscular Hgb Conc. 31.3 g/dL (32.0-36.0); Mean Corpuscular Volume 72.1 fL (80.0-100.0); Monocytes % (auto) 8.6 % (0.0-12.0); Red Blood Cells 4.45 10^6/uL (4.0-5.20); Red Cell Distribution Width 18.7 % (11.8-14.3); White Blood Cell 5.4 10^3/uL (4.4-10.8)
[2023-02-28 05:51] LABS: Alanine Aminotransferase 25 U/L (7-40); Albumin 3.7 g/dL (3.2-4.8); Alkaline Phosphatase 108 U/L (46-116); Anion Gap 7 (5-15); Aspartate Aminotransferase 30 U/L (13-40); BUN/Creatinine Ratio 27.4 (10.0-20.0); Bilirubin, Total 0.4 mg/dL (0.2-1.0); Blood Urea Nitrogen 31 mg/dL (9-23); CRP High Sensitivity 0.34 mg/dL (<1.0); Calcium 8.7 mg/dL (8.5-10.1); Carbon Dioxide 28 mmol/L (20-30); Chloride 110 mmol/L (98-107); Glucose 93 mg/dL (74-106); Potassium 3.8 mmol/L (3.5-5.1); Sodium 145 mmol/L (136-145); Total Protein 6.5 g/dL (5.7-8.2)
[2023-02-28 08:00] VITALS: PULSE 64; RESP 18; O2SAT 97
[2023-02-28 08:06] LABS: Base Excess 1.1 mmol/L (-2.0-2.0)
[2023-02-28 09:00] VITALS: BP 140/50; PULSE 64; RESP 18; TEMP 98.5; O2SAT 97
[2023-02-28] MEDS ORDERED: POTA-228 PO (09:03)
[2023-02-28] MEDS ORDERED: FURO40TA4 PO (09:03)
[2023-02-28] MEDS ORDERED: DEX4T PO (09:03)
[2023-02-28] MEDS ORDERED: DOX100T PO (09:03)
[2023-02-28] MEDS: ENOXAPARIN SOD 40 MG/0.4 ML SYRINGE SC SCH (09:34)
[2023-02-28] MEDS: DOXYCYCLINE 100 MG TAB/CAP PO SCH (09:34)
[2023-02-28] MEDS: ZINC SULFATE 220mg CAP or TAB PO SCH (09:34)
[2023-02-28] MEDS: METOPROLOL TARTRATE 25 MG TAB PO SCH (09:35)
[2023-02-28] MEDS: DexAMETHasone SOD PHOS 10MG/1ML VIAL INJ IV SCH (09:35)
[2023-02-28] MEDS: CHOLECALCIFEROL (VITD3) 2,000 UNIT CAP/TAB PO SCH (09:35)
[2023-02-28] MEDS: FUROSEMIDE 40 MG TAB PO SCH (09:35)
[2023-02-28] MEDS: Ensure HIGH Protein Chocolate 8oz Bottle PO SCH ×2 (09:36→12:00)
[2023-02-28 10:00] VITALS: O2SAT 97
[2023-02-28] MEDS: BUDESONIDE (INHALATION) 0.5 MG/2 ML NEB NEB SCH (10:00)
[2023-02-28 13:00] VITALS: BP 115/57; PULSE 54; RESP 16; TEMP 98.7; O2SAT 98
[2023-02-28 14:14] VITALS: BP 115/47; PULSE 74; RESP 16; TEMP 98.7; O2SAT 98
[2023-02-28] MEDS: REMDESIVIR 100mg 100 MG in SODIUM CHL 0.9% 230 ML IV SCH (15:00)
== END 2023-02-28 16:31 | disposition home or self-care (01) | DRG 720 ==
LOC: EDBD 16:42 → ER 16:42 → CENTRAL 21:43 → TELE 21:53 → TELE-CENTR 02-26 23:30 → CENTRAL 02-27 16:30
PROVIDERS: ADMIT Nurse Practitioner; ATTEND Internal Medicine
PROC: XW033E5 Introduction of Remdesivir Anti-infective into Peripheral Vein, Percutaneous Approach, New Technology Group 5 (ICD-10-PCS; principal; 2023-02-25)
DX: A41.89 Other specified sepsis (principal); J96.00 Acute respiratory failure, unspecified whether with hypoxia or hypercapnia; J12.82 Pneumonia due to coronavirus disease 2019; N17.0 Acute kidney failure with tubular necrosis; U07.1 COVID-19; G92.8 Other toxic encephalopathy; I50.31 Acute diastolic (congestive) heart failure; I21.A1 Myocardial infarction type 2; F03.90 Unspecified dementia, unspecified severity, without behavioral disturbance, psychotic disturbance, mood disturbance, and anxiety; F17.210 Nicotine dependence, cigarettes, uncomplicated; J45.909 Unspecified asthma, uncomplicated; E66.9 Obesity, unspecified; I13.0 Hypertensive heart and chronic kidney disease with heart failure and stage 1 through stage 4 chronic kidney disease, or unspecified chronic kidney disease; N18.9 Chronic kidney disease, unspecified; Z80.9 Family history of malignant neoplasm, unspecified; Z90.710 Acquired absence of both cervix and uterus; Z23 Encounter for immunization; Z68.32 Body mass index [BMI] 32.0-32.9, adult; Z79.899 Other long term (current) drug therapy; I16.0 Hypertensive urgency
CPT/HCPCS: 36415; 36600; 71045; 71275; 80053; 81001; 82306; 82607; 82728; 82805; 83036; 83540; 83550; 83605; 83615; 83735; 83880; 84443; 84484; 85025; 85379; 86141; 87040; 87426; 87804; 93005; 93306; 94640; 97163; 99291; C9113; G0378; J0696; J1100

== ENCOUNTER 2023-08-13 09:46 | Inpatient (IN) | payer MEDICARE, MEDICAID ==
[~2023-08-13] VITALS: Ht 167.6 cm; Wt 95.0 kg
[2023-08-13] VITALS (9 sets, daily range): BP systolic 144; BP diastolic 38; PULSE 72–87; RESP 14–28; TEMP 98.6; O2SAT 93–100
[~2023-08-13 09:46] MED LIST: DEX4T PO; DOX100T PO; FURO40TA4 PO; POTA-228 PO
[2023-08-13] MEDS: ALBUTEROL SULF 2.5 MG/0.5ML(0.5%) NEB SOLN HHN ONE (10:15)
[2023-08-13] MEDS: methylPREDNISolone SOD SUCC 125 MG/2 ML VL IV ONE (10:15)
[2023-08-13] MEDS: IPRATROPIUM BROM 0.5 MG/2.5ML INH SOL HHN ONE (10:15)
[2023-08-13 10:59] LABS: Base Excess -8.2 mmol/L (-2.0-2.0)
[2023-08-13 11:04] LABS: Basophils # (auto) 0.1 10 ^3/uL (0-0.2); Eosinophils # (auto) 0.3 10 ^3/uL (0-0.8); Lymphocytes # (auto) 0.5 10 ^3/uL (0.4-5.4); Lymphocytes % (auto) 5.8 % (10.0-50.0); Monocytes # (auto) 0.6 10 ^3/uL (0-1.3)
[2023-08-13 11:07] LABS: Basophils % (auto) 0.5 % (0.0-2.0); Eosinophils % (auto) 2.7 % (0.0-7.0); Hematocrit 35.7 % (36.0-46.0); Hemoglobin 10.5 g/dL (12.2-16.2); Mean Corpuscular Hemoglobin 22.2 pg (28.0-32.0); Mean Corpuscular Hgb Conc. 29.4 g/dL (32.0-36.0); Mean Corpuscular Volume 75.6 fL (80.0-100.0); Monocytes % (auto) 6.7 % (0.0-12.0); Neutrophils # (auto) 7.8 10 ^3/uL (1.6-8.6); Neutrophils % (auto) 84.3 % (37.0-80.0); Nucleated Red Blood Cells % 0.2 %; Red Blood Cells 4.72 10^6/uL (4.0-5.20); Red Cell Distribution Width 15.7 % (11.8-14.3); White Blood Cell 9.3 10^3/uL (4.4-10.8)
[2023-08-13 11:26] LABS: Alanine Aminotransferase 17 U/L (7-40); Albumin 4.4 g/dL (3.2-4.8); Alkaline Phosphatase 204 U/L (46-116); Anion Gap 8 (5-15); Aspartate Aminotransferase 25 U/L (13-40); BUN/Creatinine Ratio 13.1 (10.0-20.0); Blood Urea Nitrogen 31 mg/dL (9-23); Calcium 9.3 mg/dL (8.5-10.1); Carbon Dioxide 20 mmol/L (20-30); Chloride 115 mmol/L (98-107); Glucose 96 mg/dL (74-106); Sodium 143 mmol/L (136-145)
[2023-08-13 11:27] LABS: Bilirubin, Total 0.3 mg/dL (0.2-1.0); Total Protein 7.5 g/dL (5.7-8.2)
[2023-08-13 11:46] LABS: Lactic Acid w/Reflex 2.4 mmol/L (0.4-2.0)
[2023-08-13 12:04] LABS: Platelet Estimate Adequate
[2023-08-13 12:05] LABS: Hypochromia Moderate; Ovalocytes FEW; Stomatocytes Few
[2023-08-13] MEDS: CALCIUM GLUC 1,000mg/50ml-NS 50 ML IV ONE (12:05)
[2023-08-13] MEDS ORDERED: DOCUSATE SOD 100 MG CAP PO PRN (12:15)
[2023-08-13] MEDS: DEXTROSE (50%) 50ML SYRG IV ONE (12:36)
[2023-08-13] MEDS: FUROSEMIDE 40 MG/4 ML VIAL IV ONE (12:37)
[2023-08-13] MEDS: SODIUM BICARB 8.4% 50Meq/50ml SYR Vial IV ONE (12:37)
[2023-08-13] MEDS: levoFLOXacin 500MG 100 ML IV ONE (12:46)
[2023-08-13] MEDS: InsuLIN REG 1unit/0.01ml Soln (100units/ml) IV ONE (12:50)
[2023-08-13] MEDS: InsuLIN REG 1unit/0.01ml Soln (100units/ml) ONE (12:57)
[2023-08-13] MEDS: IPRATROPIUM BROM 0.5 MG/2.5ML INH SOL NEB SCH (14:20)
[2023-08-13] MEDS: ALBUTEROL SULF 2.5 MG/0.5ML(0.5%) NEB SOLN NEB SCH (14:20)
[2023-08-13] MEDS: methylPREDNISolone SOD SUCC 125 MG/2 ML VL IV SCH (14:54)
[2023-08-13] MEDS ORDERED: VANCOMYCIN PER PHARMACY 0 MG IV SCH (15:15)
[2023-08-13] MEDS: VANCOMYCIN 1GM/200ML 200 ML IV ONE (15:35)
[2023-08-13] MEDS: ONDANSETRON HCL 4 MG/2 ML VIAL IV PRN (15:36)
[2023-08-13] MEDS: MORPHINE SULFATE INJ 2 MG/ml SYRG IV PRN (15:36)
[2023-08-13 16:55] LABS: Magnesium 1.7 mg/dL (1.6-2.6)
[2023-08-13 16:57] LABS: Phosphorus 2.2 mg/dL (2.4-5.1)
[2023-08-13] MEDS: HYDROcodone-ACET 5/325MG TAB PO ONE (17:16)
[2023-08-13] MEDS: FUROSEMIDE 100 MG/10ML VIAL IV SCH (18:00)
[2023-08-13 19:02] LABS: Anion Gap 9 (5-15); Calcium 9.1 mg/dL (8.5-10.1); Carbon Dioxide 21 mmol/L (20-30); Chloride 111 mmol/L (98-107); Sodium 141 mmol/L (136-145)
[2023-08-13 19:08] LABS: Blood Urea Nitrogen 37 mg/dL (9-23); Glucose 153 mg/dL (74-106)
[2023-08-13 19:18] LABS: Urine Bacteria FEW /hpf (None Seen); Urine Blood Negative /uL (Negative); Urine Clarity Clear (Clear); Urine Color Colorless (Yellow); Urine Hyaline Cast FEW /lpf (0 - 2); Urine Protein, UAD Negative (Negative); Urine Urobilinogen Normal (Negative); Urine WBC 1 /hpf (0 - 5)
[2023-08-13 19:28] LABS: Protein, Urine < 6.0 mg/dL (0.0-11.9)
[2023-08-13 19:31] LABS: Creatinine, Urine 41.41 mg/dL (30.0-125.0)
[2023-08-13] MEDS: HYDROcodone-ACET 5/325MG TAB PO PRN (21:04)
[2023-08-13] MEDS: METOPROLOL TARTRATE 25 MG TAB PO SCH (22:00)
[2023-08-13] MEDS: ATORVASTATIN 20 MG TAB PO SCH (22:36)
[2023-08-14] VITALS (21 sets, daily range): BP systolic 103–144; BP diastolic 40–76; PULSE 70–108; RESP 17–20; TEMP 97.9–98.4; O2SAT 90–100
[2023-08-14] MEDS: TEMAZEPAM 15 MG CAP PO ONE (02:28)
[2023-08-14 05:52] LABS: Basophils # (auto) 0 10 ^3/uL (0-0.2); Basophils % (auto) 0.2 % (0.0-2.0); Eosinophils # (auto) 0 10 ^3/uL (0-0.8); Hemoglobin 9.4 g/dL (12.2-16.2); Monocytes # (auto) 0.2 10 ^3/uL (0-1.3)
[2023-08-14 05:58] LABS: Hematocrit 30.5 % (36.0-46.0); Lymphocytes # (auto) 0.5 10 ^3/uL (0.4-5.4); Mean Corpuscular Hemoglobin 22.5 pg (28.0-32.0); Mean Corpuscular Hgb Conc. 30.8 g/dL (32.0-36.0); Mean Corpuscular Volume 73.1 fL (80.0-100.0); Neutrophils # (auto) 7.2 10 ^3/uL (1.6-8.6); Neutrophils % (auto) 91.8 % (37.0-80.0); Red Blood Cells 4.17 10^6/uL (4.0-5.20); Red Cell Distribution Width 15.2 % (11.8-14.3); White Blood Cell 7.9 10^3/uL (4.4-10.8)
[2023-08-14 06:21] LABS: Alanine Aminotransferase 18 U/L (7-40); Albumin 4.2 g/dL (3.2-4.8); Alkaline Phosphatase 179 U/L (46-116); Anion Gap 11 (5-15); Aspartate Aminotransferase 23 U/L (13-40); BUN/Creatinine Ratio 19.5 (10.0-20.0); Bilirubin, Total 0.2 mg/dL (0.2-1.0); Calcium 9.1 mg/dL (8.5-10.1); Carbon Dioxide 20 mmol/L (20-30); Chloride 109 mmol/L (98-107); Glucose 134 mg/dL (74-106); Sodium 140 mmol/L (136-145); Total Protein 6.8 g/dL (5.7-8.2)
[2023-08-14 06:34] LABS: Blood Urea Nitrogen 47 mg/dL (9-23); Potassium 5.8 mmol/L (3.5-5.1)
[2023-08-14] MEDS: SODIUM ZIRCONIUM CYCL 10 GM PAK PO ONE (09:05)
[2023-08-14] MEDS: EMPAGLIFLOZIN 10 MG TAB PO SCH (10:23)
[2023-08-14] MEDS: levoFLOXacin 250MG 50 ML IV SCH (10:23)
[2023-08-14] MEDS: VANCOMYCIN 500 MG in D5W 5% 100 ML IV ONE (15:42)
[2023-08-14] MEDS ORDERED: ASPI81CH59 PO (17:05)
[2023-08-14] MEDS ORDERED: LOSA-533 PO (17:05)
[2023-08-14] MEDS ORDERED: MET25T PO (17:05)
[2023-08-14] MEDS ORDERED: TRIA75TA55 PO (17:05)
[2023-08-14] MEDS ORDERED: DIPH25TA31 PO (17:05)
[2023-08-14] MEDS ORDERED: ATOR-507 PO (17:05)
[2023-08-14] MEDS ORDERED: ALBU0.084 NEB (17:15)
[2023-08-14] MEDS ORDERED: DONETAB6 PO (17:15)
[2023-08-14] MEDS ORDERED: FERR325T20 PO (17:15)
[2023-08-15] VITALS (18 sets, daily range): BP systolic 107–144; BP diastolic 54–74; PULSE 58–82; RESP 16–20; TEMP 97.4–99.2; O2SAT 94–100
[2023-08-15] MEDS: FUROSEMIDE 100 MG/10ML VIAL IV SCH (10:31)
[2023-08-15] MEDS: VANCOMYCIN 500 MG in D5W 5% 100 ML IV ONE (16:05)
[2023-08-15] MEDS: MORPHINE SULFATE 4 MG/ML SYR/VIAL IV PRN (17:14)
[2023-08-16] VITALS (20 sets, daily range): BP systolic 121–150; BP diastolic 47–81; PULSE 53–82; RESP 16–20; TEMP 98–98.9; O2SAT 94–100
[2023-08-16 06:14] LABS: Chloride 107 mmol/L (98-107); Potassium 4.8 mmol/L (3.5-5.1); Sodium 139 mmol/L (136-145)
[2023-08-16 06:15] LABS: Anion Gap 6 (5-15); Calcium 8.6 mg/dL (8.7-10.4); Carbon Dioxide 26 mmol/L (20-30)
[2023-08-16 06:20] LABS: BUN/Creatinine Ratio 29.2 (10.0-20.0); Blood Urea Nitrogen 62 mg/dL (9-23); Glucose 146 mg/dL (74-106)
[2023-08-16] MEDS: VANCOMYCIN 500 MG in D5W 5% 100 ML IV ONE (16:13)
[2023-08-16] MEDS: MELATONIN 5 MG TAB PO ONE (22:51)
[2023-08-17] VITALS (18 sets, daily range): BP systolic 111–148; BP diastolic 45–87; PULSE 67–94; RESP 14–18; TEMP 97.8–98.1; O2SAT 91–100
[2023-08-17] MEDS: FUROSEMIDE 40 MG/4 ML VIAL IV SCH (09:58)
[2023-08-17] MEDS: VANCOMYCIN 750mg/150ml 150 ML IV ONE (16:00)
[2023-08-17] MEDS: MELATONIN 5 MG TAB PO ONE (23:03)
[2023-08-18] VITALS (20 sets, daily range): BP systolic 105–133; BP diastolic 39–77; PULSE 57–87; RESP 14–21; TEMP 97.4–98.2; O2SAT 93–100
[2023-08-18 06:55] LABS: Chloride 105 mmol/L (98-107); Potassium 4.4 mmol/L (3.5-5.1); Sodium 138 mmol/L (136-145)
[2023-08-18 06:56] LABS: Anion Gap 8 (5-15); Carbon Dioxide 25 mmol/L (20-30)
[2023-08-18 06:57] LABS: Calcium 9.1 mg/dL (8.7-10.4)
[2023-08-18 07:01] LABS: BUN/Creatinine Ratio 26.2 (10.0-20.0); Blood Urea Nitrogen 49 mg/dL (9-23); Glucose 144 mg/dL (74-106)
[2023-08-18] MEDS: VANCOMYCIN 500 MG in D5W 5% 100 ML IV ONE (17:38)
[2023-08-19] VITALS (16 sets, daily range): BP systolic 112–150; BP diastolic 51–73; PULSE 53–71; RESP 16–20; TEMP 97.3–98.3; O2SAT 91–100
[2023-08-19 03:13] LABS: COVID19 ANTIGEN SOFIA FIA NEGATIVE (NEGATIVE)
[2023-08-19] MEDS ORDERED: PRED20TA2 PO (13:43)
[2023-08-19] MEDS ORDERED: AZIT500T66 PO (13:43)
== END 2023-08-19 18:45 | disposition home or self-care (01) | DRG 137 ==
LOC: ER 09:46 → EDBD 09:46 → OVERFLOW 14:19 → TELE-WESTW 23:52
PROVIDERS: ADMIT Nurse Practitioner Family; ATTEND Family Medicine
DX: J15.69 Pneumonia due to other Gram-negative bacteria (principal); J96.21 Acute and chronic respiratory failure with hypoxia; I50.33 Acute on chronic diastolic (congestive) heart failure; N17.9 Acute kidney failure, unspecified; E87.20 Acidosis, unspecified; E11.649 Type 2 diabetes mellitus with hypoglycemia without coma; J45.901 Unspecified asthma with (acute) exacerbation; J91.8 Pleural effusion in other conditions classified elsewhere; J44.0 Chronic obstructive pulmonary disease with (acute) lower respiratory infection; I13.0 Hypertensive heart and chronic kidney disease with heart failure and stage 1 through stage 4 chronic kidney disease, or unspecified chronic kidney disease; J15.9 Unspecified bacterial pneumonia; J44.1 Chronic obstructive pulmonary disease with (acute) exacerbation; Z20.822 Contact with and (suspected) exposure to COVID-19; E87.5 Hyperkalemia; N18.31 Chronic kidney disease, stage 3a; D50.9 Iron deficiency anemia, unspecified; E66.9 Obesity, unspecified; F17.210 Nicotine dependence, cigarettes, uncomplicated; E78.00 Pure hypercholesterolemia, unspecified; Z86.73 Personal history of transient ischemic attack (TIA), and cerebral infarction without residual deficits; Z86.16 Personal history of COVID-19; Z99.81 Dependence on supplemental oxygen; Z79.899 Other long term (current) drug therapy; Z90.710 Acquired absence of both cervix and uterus; Z68.33 Body mass index [BMI] 33.0-33.9, adult; Z82.49 Family history of ischemic heart disease and other diseases of the circulatory system; Z82.3 Family history of stroke; Z79.4 Long term (current) use of insulin
CPT/HCPCS: 36415; 36600; 71045; 76604; 80048; 80053; 80202; 81001; 82565; 82570; 82805; 82962; 83605; 83735; 83880; 84100; 84132; 84156; 84484; 85025; 87040; 87426; 93005; 93306; 93886; 94640; 94644; 96365; 96366; 96367; 96375; 97163; 99291; G0378; J1815; J1956; J2405; J7060

== ENCOUNTER 2023-11-10 18:58 | Inpatient (IN) | payer MEDICARE, MEDICAID ==
[~2023-11-10] VITALS: Ht 157.5 cm; Wt 74.0 kg
[~2023-11-10 18:58] MED LIST changes: +ALBU0.084 NEB; +AMLO1TAB23 PO; +ASPI81CH59 PO; +ATOR-507 PO; +AZIT500T66 PO; -DEX4T PO; +DIPH25TA31 PO; +DIVA1TAB59 PO; +DONETAB6 PO; -DOX100T PO; +FERR325T20 PO; +FURO20TA3 PO; -FURO40TA4 PO; +HYDR-4902 PO; +LOSA-533 PO; +MET25T PO; +ONDA-188 PO; -POTA-228 PO; +PRED20TA2 PO; +TRIA75TA55 PO; +ZOLP10TA6 PO
[2023-11-10 20:12] LABS: Basophils # (auto) 0.1 10 ^3/uL (0-0.2); Basophils % (auto) 0.8 % (0.0-2.0); Eosinophils # (auto) 0.1 10 ^3/uL (0-0.8); Lymphocytes # (auto) 1.3 10 ^3/uL (0.4-5.4); Lymphocytes % (auto) 17.8 % (10.0-50.0); Monocytes # (auto) 0.8 10 ^3/uL (0-1.3); Neutrophils # (auto) 5.2 10 ^3/uL (1.6-8.6); White Blood Cell 7.5 10^3/uL (4.4-10.8)
[2023-11-10 20:13] LABS: Eosinophils % (auto) 1.7 % (0.0-7.0); Hematocrit 33.6 % (36.0-46.0); Hemoglobin 10.7 g/dL (12.2-16.2); Mean Corpuscular Hemoglobin 22.2 pg (28.0-32.0); Mean Corpuscular Hgb Conc. 31.8 g/dL (32.0-36.0); Mean Corpuscular Volume 69.8 fL (80.0-100.0); Monocytes % (auto) 11.1 % (0.0-12.0); Neutrophils % (auto) 68.6 % (37.0-80.0); Nucleated Red Blood Cells % 0.4 %; Platelet Count (auto) 134 10^3/uL (140-450); Red Blood Cells 4.81 10^6/uL (4.0-5.20)
[2023-11-10 20:40] VITALS: PULSE 77; RESP 20; O2SAT 95
[2023-11-10] MEDS: SODIUM CHLORIDE 0.9% 1,000 ML IV ONE ×2 (20:45→22:30)
[2023-11-10 21:58] LABS: Alanine Aminotransferase 15 U/L (7-40); Albumin 3.9 g/dL (3.2-4.8); Alkaline Phosphatase 98 U/L (46-116); Anion Gap 11 (5-15); Aspartate Aminotransferase 21 U/L (13-40); BUN/Creatinine Ratio 3.7 (10.0-20.0); Bilirubin, Total 0.7 mg/dL (0.2-1.0); Blood Urea Nitrogen 16 mg/dL (9-23); Calcium 9.3 mg/dL (8.7-10.4); Carbon Dioxide 23 mmol/L (20-30); Chloride 103 mmol/L (98-107); Glucose 77 mg/dL (74-106); Potassium 3.5 mmol/L (3.5-5.1); Sodium 137 mmol/L (136-145)
[2023-11-10] MEDS ORDERED: ONDANSETRON HCL 4 MG/2 ML VIAL IV PRN (23:00)
[2023-11-10] MEDS ORDERED: ALBUTEROL SULF 2.5 MG/0.5ML(0.5%) NEB SOLN NEB PRN (23:00)
[2023-11-10 23:52] VITALS: BP 82/41; PULSE 77; RESP 20; TEMP 98.3; O2SAT 95
[2023-11-11] MEDS: ALBUMIN 5% 250 ML IV ONE (00:46)
[2023-11-11 05:03] LABS: Alanine Aminotransferase 15 U/L (7-40); Albumin 3.7 g/dL (3.2-4.8); Alkaline Phosphatase 86 U/L (46-116); Anion Gap 11 (5-15); Aspartate Aminotransferase 20 U/L (13-40); BUN/Creatinine Ratio 4.2 (10.0-20.0); Bilirubin, Total 0.8 mg/dL (0.2-1.0); Blood Urea Nitrogen 16 mg/dL (9-23); Calcium 8.4 mg/dL (8.7-10.4); Carbon Dioxide 23 mmol/L (20-30); Chloride 107 mmol/L (98-107); Glucose 75 mg/dL (74-106); Potassium 3.4 mmol/L (3.5-5.1); Sodium 141 mmol/L (136-145); Total Protein 5.7 g/dL (5.7-8.2)
[2023-11-11 08:25] VITALS: O2SAT 94
[2023-11-11 08:32] LABS: Basophils # (auto) 0 10 ^3/uL (0-0.2); Eosinophils # (auto) 0.2 10 ^3/uL (0-0.8); Eosinophils % (auto) 2.5 % (0.0-7.0); Hematocrit 27.6 % (36.0-46.0); Hemoglobin 8.8 g/dL (12.2-16.2); Lymphocytes # (auto) 1.3 10 ^3/uL (0.4-5.4); Mean Corpuscular Hemoglobin 22.1 pg (28.0-32.0); Mean Corpuscular Hgb Conc. 31.8 g/dL (32.0-36.0); Mean Corpuscular Volume 69.4 fL (80.0-100.0); Monocytes # (auto) 0.6 10 ^3/uL (0-1.3); Nucleated Red Blood Cells % 0.1 %; White Blood Cell 6.6 10^3/uL (4.4-10.8)
[2023-11-11 08:34] LABS: Basophils % (auto) 0.6 % (0.0-2.0); Lymphocytes % (auto) 18.9 % (10.0-50.0); Monocytes % (auto) 9.6 % (0.0-12.0); Neutrophils # (auto) 4.5 10 ^3/uL (1.6-8.6); Neutrophils % (auto) 68.4 % (37.0-80.0); Platelet Count (auto) 104 10^3/uL (140-450); Red Blood Cells 3.98 10^6/uL (4.0-5.20)
[2023-11-11 10:00] VITALS: PULSE 79; RESP 16; O2SAT 95
[2023-11-11] MEDS ORDERED: ASPirin 81 mg TAB PO SCH (10:00)
[2023-11-11 15:16] LABS: Erythrocyte Sedimentation Rate 10 mm/hr (0-20)
[2023-11-11 19:27] VITALS: O2SAT 94
[2023-11-11] MEDS: DOXYCYCLINE 100MG/250ML 250 ML IV SCH (20:15)
[2023-11-11 20:43] VITALS: PULSE 80; RESP 12; O2SAT 90
[2023-11-11] MEDS: ATORVASTATIN 20 MG TAB PO SCH (21:44)
[2023-11-11] MEDS: DONEPEZIL HYDROCHLORIDE 5 MG TAB PO SCH (21:44)
[2023-11-12 05:50] VITALS: O2SAT 91
[2023-11-12] MEDS: DOXYCYCLINE 100MG/250ML 250 ML IV SCH (07:53)
[2023-11-12 10:00] VITALS: PULSE 80; RESP 12; O2SAT 94
[2023-11-12] MEDS: SODIUM CHL 0.9% 1000 ML BAG XX ONE (10:14)
[2023-11-12] MEDS: cefTRIAXone 1GM/50ML D5W 50 ML IV SCH (10:45)
[2023-11-12 13:20] LABS: Eosinophils # (auto) 0.2 10 ^3/uL (0-0.8); Monocytes # (auto) 0.5 10 ^3/uL (0-1.3)
[2023-11-12 13:24] LABS: Basophils # (auto) 0 10 ^3/uL (0-0.2); Basophils % (auto) 0.4 % (0.0-2.0); Hematocrit 29.3 % (36.0-46.0); Hemoglobin 9.6 g/dL (12.2-16.2); Lymphocytes # (auto) 0.9 10 ^3/uL (0.4-5.4); Lymphocytes % (auto) 10.3 % (10.0-50.0); Mean Corpuscular Hemoglobin 22.3 pg (28.0-32.0); Mean Corpuscular Hgb Conc. 32.7 g/dL (32.0-36.0); Mean Corpuscular Volume 68.2 fL (80.0-100.0); Monocytes % (auto) 5.5 % (0.0-12.0); Neutrophils # (auto) 7.5 10 ^3/uL (1.6-8.6); Neutrophils % (auto) 81.8 % (37.0-80.0); Nucleated Red Blood Cells % 0.4 %; Platelet Count (auto) 47 10^3/uL (140-450); White Blood Cell 9.2 10^3/uL (4.4-10.8)
[2023-11-12 13:25] LABS: Chloride 105 mmol/L (98-107); Potassium 3.7 mmol/L (3.5-5.1); Sodium 141 mmol/L (136-145)
[2023-11-12 13:26] LABS: Anion Gap 4 (5-15); Calcium 9.1 mg/dL (8.7-10.4); Carbon Dioxide 32 mmol/L (20-30)
[2023-11-12 13:31] LABS: Anisocytosis Slight; BUN/Creatinine Ratio 6.9 (10.0-20.0); Blood Urea Nitrogen 8 mg/dL (9-23); Glucose 90 mg/dL (74-106); Hypochromia Slight
[2023-11-12 13:32] LABS: Platelet Estimate Decreased; Target Cell FEW
[2023-11-12 17:18] VITALS: PULSE 95; RESP 22; O2SAT 94
[2023-11-12 17:30] VITALS: BP 106/58; PULSE 95; RESP 22; TEMP 98.2; O2SAT 94
[2023-11-12 19:21] VITALS: PULSE 81; RESP 18; O2SAT 97
[2023-11-12 21:00] VITALS: BP 88/70; PULSE 93; RESP 19; TEMP 97.8; O2SAT 91
[2023-11-12] MEDS: EPOETIN ALFA-EPBX 10,000 UNIT/1ML VIAL SC ONE (21:00)
[2023-11-13] VITALS (7 sets, daily range): BP systolic 80–110; BP diastolic 41–58; PULSE 64–85; RESP 17–19; TEMP 97.8–98; O2SAT 90–97
[2023-11-13 10:50] LABS: Chloride 105 mmol/L (98-107); Potassium 3.7 mmol/L (3.5-5.1); Sodium 141 mmol/L (136-145)
[2023-11-13 10:51] LABS: Anion Gap 6 (5-15); Calcium 8.9 mg/dL (8.7-10.4); Carbon Dioxide 30 mmol/L (20-30)
[2023-11-13 10:56] LABS: BUN/Creatinine Ratio 4.9 (10.0-20.0); Basophils # (auto) 0.1 10 ^3/uL (0-0.2); Basophils % (auto) 0.7 % (0.0-2.0); Blood Urea Nitrogen 11 mg/dL (9-23); Eosinophils # (auto) 0.2 10 ^3/uL (0-0.8); Eosinophils % (auto) 3.3 % (0.0-7.0); Glucose 97 mg/dL (74-106); Hematocrit 31.3 % (36.0-46.0); Hemoglobin 10.1 g/dL (12.2-16.2); Lymphocytes # (auto) 1.3 10 ^3/uL (0.4-5.4); Lymphocytes % (auto) 17.5 % (10.0-50.0); Mean Corpuscular Hemoglobin 22.2 pg (28.0-32.0); Mean Corpuscular Hgb Conc. 32.4 g/dL (32.0-36.0); Mean Corpuscular Volume 68.5 fL (80.0-100.0); Monocytes # (auto) 0.7 10 ^3/uL (0-1.3); Monocytes % (auto) 9.5 % (0.0-12.0); Neutrophils # (auto) 5.3 10 ^3/uL (1.6-8.6); Nucleated Red Blood Cells % 0.3 %; Red Blood Cells 4.56 10^6/uL (4.0-5.20); Red Cell Distribution Width 17.3 % (11.8-14.3); White Blood Cell 7.6 10^3/uL (4.4-10.8)
[2023-11-13 10:57] LABS: Platelet Count (auto) 52 10^3/uL (140-450)
[2023-11-14 16:50] VITALS: BP 91/55; PULSE 87; RESP 16; TEMP 97; O2SAT 95
[2023-11-14] MEDS: ALBUMIN 25% 100 ML IV PRN (17:46)
[2023-11-14] MEDS: SODIUM CHL 0.9% 1000 ML BAG XX ONE (17:46)
[2023-11-14] MEDS: DOXYCYCLINE 100 MG TAB/CAP PO SCH (18:11)
[2023-11-14 19:50] VITALS: BP 105/61; PULSE 100; RESP 20; TEMP 96.1; O2SAT 95
[2023-11-14 20:00] VITALS: PULSE 104
[2023-11-14 21:00] VITALS: BP 97/56; PULSE 104; RESP 17; TEMP 98.3; O2SAT 90
[2023-11-14] MEDS: EPOETIN ALFA-EPBX 10,000 UNIT/1ML VIAL SC ONE (21:08)
[2023-11-15 01:00] VITALS: BP 109/50; PULSE 89; RESP 18; TEMP 98.4; O2SAT 96
[2023-11-15] MEDS ORDERED: SODIUM CHL 0.9% 1000 ML BAG XX ONE (07:00)
[2023-11-15 13:00] VITALS: BP 128/56; PULSE 75; RESP 17; TEMP 98.1; O2SAT 96
[2023-11-15 17:00] VITALS: BP 100/57; PULSE 77; RESP 15; TEMP 98.4; O2SAT 90
[2023-11-15] MEDS: FLUoxetine HCL 20 MG CAP PO SCH (17:09)
[2023-11-15 21:00] VITALS: BP 103/58; PULSE 100; RESP 20; TEMP 98.3; O2SAT 90
[2023-11-15] MEDS ORDERED: EPOETIN ALFA-EPBX 4,000 UNIT/ML VIAL SC ONE (21:00)
[2023-11-16 01:00] VITALS: BP 102/47; PULSE 97; RESP 20; TEMP 98.9; O2SAT 95
[2023-11-16 05:00] VITALS: BP_SYST 106; BP_SYST 95; BP_DIAS 49; BP_DIAS 53; PULSE 61; PULSE 82; RESP 20; TEMP 97; TEMP 98.6; O2SAT 92; O2SAT 94
[2023-11-16 09:00] VITALS: BP 98/45; PULSE 79; RESP 20; TEMP 98.5; O2SAT 94
[2023-11-16 13:00] VITALS: BP 114/56; PULSE 68; RESP 20; TEMP 97.6; O2SAT 90
[2023-11-16 16:26] VITALS: BP 114/56; PULSE 68; RESP 20; TEMP 97.6; O2SAT 90
[2023-11-16 19:35] LABS: COVID19 ANTIGEN SOFIA FIA NEGATIVE (NEGATIVE)
[2023-11-16 21:00] VITALS: BP 130/46; PULSE 82; RESP 19; TEMP 98.7; O2SAT 99
[2023-11-17] VITALS (7 sets, daily range): BP systolic 111–140; BP diastolic 55–74; PULSE 61–100; RESP 15–19; TEMP 97.8–98.8; O2SAT 96–99
[2023-11-17] MEDS: ACETAMINOPHEN 325 MG TAB PO PRN (17:24)
[2023-11-17 18:33] LABS: Basophils # (auto) 0 10 ^3/uL (0-0.2); Basophils % (auto) 0.3 % (0.0-2.0); Eosinophils # (auto) 0.1 10 ^3/uL (0-0.8); Eosinophils % (auto) 5.1 % (0.0-7.0); Hematocrit 27.4 % (36.0-46.0); Hemoglobin 8.6 g/dL (12.2-16.2); Lymphocytes # (auto) 0.9 10 ^3/uL (0.4-5.4); Lymphocytes % (auto) 33.9 % (10.0-50.0); Mean Corpuscular Hemoglobin 21.6 pg (28.0-32.0); Mean Corpuscular Hgb Conc. 31.4 g/dL (32.0-36.0); Mean Corpuscular Volume 68.7 fL (80.0-100.0); Monocytes # (auto) 0.1 10 ^3/uL (0-1.3); Monocytes % (auto) 5.3 % (0.0-12.0); Neutrophils # (auto) 1.4 10 ^3/uL (1.6-8.6); Neutrophils % (auto) 55.4 % (37.0-80.0); Nucleated Red Blood Cells % 0.4 %; Platelet Count (auto) 153 10^3/uL (140-450); Red Blood Cells 3.99 10^6/uL (4.0-5.20); Red Cell Distribution Width 17.1 % (11.8-14.3); White Blood Cell 2.6 10^3/uL (4.4-10.8)
[2023-11-17 18:52] LABS: Chloride 109 mmol/L (98-107); Potassium 3.5 mmol/L (3.5-5.1); Sodium 143 mmol/L (136-145)
[2023-11-17 19:03] LABS: Alanine Aminotransferase 20 U/L (7-40); Albumin 3.8 g/dL (3.2-4.8); Alkaline Phosphatase 110 U/L (46-116); Anion Gap 3 (5-15); Aspartate Aminotransferase 26 U/L (13-40); BUN/Creatinine Ratio 10.7 (10.0-20.0); Bilirubin, Total 0.7 mg/dL (0.2-1.0); Blood Urea Nitrogen 18 mg/dL (9-23); Carbon Dioxide 31 mmol/L (20-30); Glucose 89 mg/dL (74-106); Total Protein 5.8 g/dL (5.7-8.2)
[2023-11-17] MEDS: EPOETIN ALFA-EPBX 10,000 UNIT/1ML VIAL SC ONE (21:00)
[2023-11-18 05:00] VITALS: BP 111/51; PULSE 87; RESP 19; TEMP 98.4; O2SAT 95
[2023-11-18 11:02] LABS: Hepatitis B Surface Antigen Negative (Negative)
[2023-11-18 11:22] LABS: Hepatitis A Ab IgM Negative
[2023-11-18 11:23] LABS: Hepatitis B Core IgM Negative; Hepatitis C Antibody Negative (Negative)
[2023-11-18 17:00] VITALS: BP 104/47; PULSE 78; RESP 18; TEMP 98; O2SAT 91
[2023-11-18 19:50] VITALS: PULSE 81
[2023-11-18 21:00] VITALS: BP 105/82; PULSE 78; RESP 18; TEMP 98.2; O2SAT 92
[2023-11-19 01:00] VITALS: BP 99/64; PULSE 99; RESP 16; TEMP 98.8; O2SAT 97
[2023-11-19 05:00] VITALS: BP 99/43; PULSE 77; RESP 20; TEMP 97.4; O2SAT 92
[2023-11-19 08:00] VITALS: PULSE 71; RESP 18; O2SAT 96
[2023-11-19 08:28] VITALS: BP 99/29; PULSE 71; RESP 18; TEMP 98.6; O2SAT 96
[2023-11-19 11:00] LABS: Basophils # (auto) 0 10 ^3/uL (0-0.2); Eosinophils # (auto) 0.2 10 ^3/uL (0-0.8); Hematocrit 31.3 % (36.0-46.0); Hemoglobin 9.8 g/dL (12.2-16.2); Mean Corpuscular Hemoglobin 21.7 pg (28.0-32.0); Mean Corpuscular Volume 69.4 fL (80.0-100.0); Nucleated Red Blood Cells % 0.1 %
[2023-11-19 11:02] LABS: Basophils % (auto) 0.6 % (0.0-2.0); Eosinophils % (auto) 2.8 % (0.0-7.0); Lymphocytes # (auto) 1.4 10 ^3/uL (0.4-5.4); Lymphocytes % (auto) 20.5 % (10.0-50.0); Mean Corpuscular Hgb Conc. 31.2 g/dL (32.0-36.0); Monocytes # (auto) 0.5 10 ^3/uL (0-1.3); Monocytes % (auto) 7.3 % (0.0-12.0); Neutrophils # (auto) 4.8 10 ^3/uL (1.6-8.6); Neutrophils % (auto) 68.8 % (37.0-80.0); Platelet Count (auto) 202 10^3/uL (140-450); Red Blood Cells 4.51 10^6/uL (4.0-5.20); Red Cell Distribution Width 17.6 % (11.8-14.3)
[2023-11-19 11:21] LABS: Alanine Aminotransferase 26 U/L (7-40); Albumin 4.2 g/dL (3.2-4.8); Alkaline Phosphatase 133 U/L (46-116); Anion Gap 11 (5-15); Aspartate Aminotransferase 31 U/L (13-40); BUN/Creatinine Ratio 7.3 (10.0-20.0); Blood Urea Nitrogen 21 mg/dL (9-23); Calcium 9.9 mg/dL (8.7-10.4); Carbon Dioxide 26 mmol/L (20-30); Chloride 102 mmol/L (98-107); Glucose 116 mg/dL (74-106); Potassium 3.7 mmol/L (3.5-5.1); Sodium 139 mmol/L (136-145)
[2023-11-19 11:22] LABS: Bilirubin, Total 0.9 mg/dL (0.2-1.0); Total Protein 6.7 g/dL (5.7-8.2)
[2023-11-19] MEDS: ONDANSETRON ODT 4 MG TAB PO PRN (12:18)
[2023-11-19 12:57] VITALS: BP 111/60; PULSE 83; RESP 18; TEMP 98.2; O2SAT 90
[2023-11-19] MEDS: SODIUM CHL 0.9% 1000 ML BAG XX ONE (13:50)
[2023-11-19] MEDS: ALBUMIN 25% 100 ML IV ONE (14:00)
[2023-11-19 17:17] VITALS: BP 120/51; PULSE 85; RESP 18; TEMP 97.5; O2SAT 100
== END 2023-11-19 18:00 | disposition home health service (06) | DRG 137 ==
LOC: EDUNIT# 18:58 → EDBD 18:58 → ER 18:58 → OVERFLOW 23:01 → WEST WING 11-12 17:17
PROVIDERS: ADMIT Nurse Practitioner; ATTEND Nurse Practitioner Acute Care
PROC: 5A1D70Z Performance of Urinary Filtration, Intermittent, Less than 6 Hours Per Day (ICD-10-PCS; principal; 2023-11-12)
PROC: 5A1D70Z Performance of Urinary Filtration, Intermittent, Less than 6 Hours Per Day (ICD-10-PCS; 2023-11-14)
PROC: 5A1D70Z Performance of Urinary Filtration, Intermittent, Less than 6 Hours Per Day (ICD-10-PCS; 2023-11-17)
DX: J15.69 Pneumonia due to other Gram-negative bacteria (principal); G93.41 Metabolic encephalopathy; I21.A1 Myocardial infarction type 2; I13.2 Hypertensive heart and chronic kidney disease with heart failure and with stage 5 chronic kidney disease, or end stage renal disease; N18.6 End stage renal disease; D63.1 Anemia in chronic kidney disease; Z20.822 Contact with and (suspected) exposure to COVID-19; J15.9 Unspecified bacterial pneumonia; E11.22 Type 2 diabetes mellitus with diabetic chronic kidney disease; I50.9 Heart failure, unspecified; F03.90 Unspecified dementia, unspecified severity, without behavioral disturbance, psychotic disturbance, mood disturbance, and anxiety; E66.9 Obesity, unspecified; J44.0 Chronic obstructive pulmonary disease with (acute) lower respiratory infection; Z99.2 Dependence on renal dialysis; Z79.899 Other long term (current) drug therapy; Z90.710 Acquired absence of both cervix and uterus; Z91.199 Patient's noncompliance with other medical treatment and regimen due to unspecified reason; Z68.30 Body mass index [BMI] 30.0-30.9, adult
CPT/HCPCS: 36415; 70450; 71045; 80048; 80053; 80074; 83605; 83880; 84484; 85025; 85379; 85652; 86141; 87040; 87081; 87426; 90935; 93005; 97110; 97116; 97163; 97530; G0378; J1642; J3490; P9047; Q0162

== ENCOUNTER 2023-11-20 13:44 | Inpatient (IN) | payer MEDICARE, MEDICAID ==
[~2023-11-20] VITALS: Ht 165.1 cm; Wt 86.1 kg
[2023-11-20 03:26] VITALS: BP 104/37; PULSE 76; RESP 19; TEMP 97.5; O2SAT 100
[~2023-11-20 13:44] MED LIST changes: -AZIT500T66 PO; -PRED20TA2 PO
[2023-11-20] MEDS: SODIUM CHLORIDE 0.9% 1,000 ML IV ONE ×2 (13:59→18:22)
[2023-11-20 14:58] LABS: Basophils # (auto) 0 10 ^3/uL (0-0.2); Basophils % (auto) 0.4 % (0.0-2.0); Eosinophils # (auto) 0 10 ^3/uL (0-0.8); Lymphocytes # (auto) 0.8 10 ^3/uL (0.4-5.4); Monocytes # (auto) 0.4 10 ^3/uL (0-1.3)
[2023-11-20 15:04] LABS: Eosinophils % (auto) 0.3 % (0.0-7.0); Hematocrit 27.3 % (36.0-46.0); Hemoglobin 8.5 g/dL (12.2-16.2); Lymphocytes % (auto) 8.9 % (10.0-50.0); Mean Corpuscular Hemoglobin 22.1 pg (28.0-32.0); Mean Corpuscular Hgb Conc. 31.1 g/dL (32.0-36.0); Mean Corpuscular Volume 71.1 fL (80.0-100.0); Neutrophils # (auto) 7.4 10 ^3/uL (1.6-8.6); Neutrophils % (auto) 85.4 % (37.0-80.0); Nucleated Red Blood Cells % 0.1 %; Platelet Count (auto) 165 10^3/uL (140-450); Red Blood Cells 3.84 10^6/uL (4.0-5.20); Red Cell Distribution Width 17.9 % (11.8-14.3); White Blood Cell 8.6 10^3/uL (4.4-10.8)
[2023-11-20 15:06] VITALS: O2SAT 100
[2023-11-20 15:19] LABS: Alanine Aminotransferase 26 U/L (7-40); Albumin 4.2 g/dL (3.2-4.8); Alkaline Phosphatase 117 U/L (46-116); Anion Gap 16 (5-15); Aspartate Aminotransferase 41 U/L (13-40); BUN/Creatinine Ratio 4.8 (10.0-20.0); Blood Urea Nitrogen 18 mg/dL (9-23); Calcium 9.7 mg/dL (8.7-10.4); Carbon Dioxide 23 mmol/L (20-30); Chloride 102 mmol/L (98-107); Glucose 87 mg/dL (74-106); Lipase 56 U/L (12-53); Magnesium 1.9 mg/dL (1.6-2.6); Potassium 3.4 mmol/L (3.5-5.1); Sodium 141 mmol/L (136-145)
[2023-11-20 15:20] LABS: Bilirubin, Total 0.8 mg/dL (0.2-1.0); Total Protein 6.5 g/dL (5.7-8.2)
[2023-11-20 15:30] LABS: Lactic Acid w/Reflex 7.3 mmol/L (0.4-2.0)
[2023-11-20] MEDS: ALBUTEROL SULF 2.5 MG/0.5ML(0.5%) NEB SOLN NEB ONE (16:46)
[2023-11-20] MEDS: IPRATROPIUM BROM 0.5 MG/2.5ML INH SOL NEB ONE (16:46)
[2023-11-20] MEDS: PANTOPRAZOLE 40 MG/10 ML VIAL INJ IV SCH (21:05)
[2023-11-20] MEDS: SODIUM CHLORIDE 0.9% 200 ML IV ONE (21:06)
[2023-11-20] MEDS: ONDANSETRON HCL 4 MG/2 ML VIAL IV ONE (22:10)
[2023-11-20] MEDS: OMNIPAQUE 12mg/ml 500ml ORAL SOLUTION PO ONE (22:18)
[2023-11-20 23:09] VITALS: PULSE 57; RESP 32; O2SAT 92
[2023-11-21] MEDS: metroNIDAZOLE 500MG/100ML 100 ML IV ONE (00:13)
[2023-11-21] MEDS: NOREPINEPHRINE 8 MG/250ML KIT 250 ML IV SCH (01:46)
[2023-11-21 05:29] LABS: Basophils # (auto) 0.1 10 ^3/uL (0-0.2); Eosinophils # (auto) 0.1 10 ^3/uL (0-0.8); Hemoglobin 8.6 g/dL (12.2-16.2); Monocytes # (auto) 0.7 10 ^3/uL (0-1.3)
[2023-11-21 05:30] LABS: Basophils % (auto) 0.5 % (0.0-2.0); Eosinophils % (auto) 0.8 % (0.0-7.0); Hematocrit 27.3 % (36.0-46.0); Lymphocytes # (auto) 1.5 10 ^3/uL (0.4-5.4); Lymphocytes % (auto) 13.9 % (10.0-50.0); Mean Corpuscular Hemoglobin 22.2 pg (28.0-32.0); Mean Corpuscular Hgb Conc. 31.6 g/dL (32.0-36.0); Mean Corpuscular Volume 70.3 fL (80.0-100.0); Monocytes % (auto) 6.4 % (0.0-12.0); Neutrophils # (auto) 8.6 10 ^3/uL (1.6-8.6); Neutrophils % (auto) 78.4 % (37.0-80.0); Platelet Count (auto) 190 10^3/uL (140-450); Red Blood Cells 3.89 10^6/uL (4.0-5.20); Red Cell Distribution Width 17.9 % (11.8-14.3)
[2023-11-21 05:45] VITALS: RESP 57; O2SAT 100
[2023-11-21 05:47] LABS: Alanine Aminotransferase 25 U/L (7-40); Albumin 3.9 g/dL (3.2-4.8); Alkaline Phosphatase 117 U/L (46-116); Anion Gap 10 (5-15); Aspartate Aminotransferase 44 U/L (13-40); BUN/Creatinine Ratio 5.2 (10.0-20.0); Blood Urea Nitrogen 22 mg/dL (9-23); Carbon Dioxide 25 mmol/L (20-30); Chloride 104 mmol/L (98-107); Glucose 109 mg/dL (74-106); Potassium 3.2 mmol/L (3.5-5.1); Sodium 139 mmol/L (136-145)
[2023-11-21 05:48] LABS: Bilirubin, Total 0.8 mg/dL (0.2-1.0); Total Protein 5.9 g/dL (5.7-8.2)
[2023-11-21] MEDS ORDERED: ONDANSETRON HCL 4 MG/2 ML VIAL IV PRN ×2 (06:30→06:45)
[2023-11-21] MEDS ORDERED: MORPHINE SULFATE INJ 2 MG/ml SYRG IV PRN ×4 (06:30→06:45)
[2023-11-21] MEDS ORDERED: NITROGLYCERIN 0.4 MG SL TAB SL PRN ×2 (06:30→06:45)
[2023-11-21] MEDS ORDERED: ALBUMIN 5% 250 ML IV ONE (06:30)
[2023-11-21] MEDS: ALBUMIN 5% 250 ML IV ONE ×2 (06:45→11:16)
[2023-11-21 07:35] VITALS: O2SAT 100
[2023-11-21] MEDS ORDERED: cefTRIAXone 1GM/50ML D5W 50 ML IV SCH (09:00)
[2023-11-21] MEDS: metroNIDAZOLE 500MG/100ML 100 ML IV SCH (09:02)
[2023-11-21 09:21] LABS: Urine Bacteria FEW /hpf (None Seen); Urine Blood 3+ /uL (Negative); Urine Budding Yeast MODERATE /hpf (None Seen); Urine Clarity Turbid (Clear); Urine Color Light-Orange (Yellow); Urine Hyaline Cast MANY /lpf (0 - 2); Urine Mucus FEW (None Seen); Urine Protein, UAD 2+ (Negative); Urine Urobilinogen Normal (Negative); Urine WBC 155 /hpf (0 - 5); Urine pH 5.5 (5.0-9.0)
[2023-11-21] MEDS: cefTRIAXone 1GM/50ML D5W 50 ML IV SCH (09:23)
[2023-11-21] MEDS ORDERED: PANTOPRAZOLE 40 MG/10 ML VIAL INJ IV SCH (10:00)
[2023-11-21] MEDS: PANTOPRAZOLE 40 MG/10 ML VIAL INJ IV SCH (10:14)
[2023-11-21] MEDS ORDERED: PPN PER PHARMACY 0 ML IV SCH (12:45)
[2023-11-21] MEDS: SODIUM CHLORIDE 0.9% 1,000 ML IV SCH (13:17)
[2023-11-21] MEDS ORDERED: metroNIDAZOLE 500MG/100ML 100 ML IV SCH (14:00)
[2023-11-21] MEDS: POTASSIUM CHL 20MEQ/100ML 100 ML IV ONE (15:01)
[2023-11-21] MEDS ORDERED: VANCOMYCIN HCL 125 MG CAP PO ONE (17:00)
[2023-11-21] MEDS: InsuLIN REG 1unit/0.01ml Soln (100units/ml) SC SCH (18:00)
[2023-11-21] MEDS: NOREPINEPHRINE 8 MG/250ML KIT 250 ML IV ONE (18:11)
[2023-11-21] MEDS: VANCOMYCIN HCL 125 MG CAP PO SCH (18:12)
[2023-11-21] MEDS: ACCU-CHEK COMFORT CURVE STRIP VI SCH (18:20)
[2023-11-21] MEDS: DEXTROSE (50%) 50ML SYRG IV ONE (18:32)
[2023-11-21] MEDS: DEXTROSE 50% SYRINGE 50 ML IV ONE (18:32)
[2023-11-21 19:20] VITALS: PULSE 45; RESP 13; O2SAT 100
[2023-11-21] MEDS: D5W 5% 1,000 ML IV ONE (19:39)
[2023-11-21] MEDS: AMINO ACID INFUSION IN D10W 1,000 ML IV ONE (20:55)
[2023-11-21] MEDS: FLORASTOR (S. BOULARDII) 250 MG CAP PO SCH (22:22)
[2023-11-22] VITALS (79 sets, daily range): BP systolic 91–157; BP diastolic 34–96; PULSE 47–110; RESP 11–32; TEMP 97.5–98.7; O2SAT 64–100
[2023-11-22 04:06] LABS: Basophils # (auto) 0.1 10 ^3/uL (0-0.2); Eosinophils # (auto) 0.4 10 ^3/uL (0-0.8); Eosinophils % (auto) 3.8 % (0.0-7.0); Hemoglobin 7.6 g/dL (12.2-16.2); Lymphocytes # (auto) 1.2 10 ^3/uL (0.4-5.4); White Blood Cell 9.5 10^3/uL (4.4-10.8)
[2023-11-22 04:09] LABS: Basophils % (auto) 0.7 % (0.0-2.0); Hematocrit 24.1 % (36.0-46.0); Lymphocytes % (auto) 12.9 % (10.0-50.0); Mean Corpuscular Hemoglobin 22.5 pg (28.0-32.0); Mean Corpuscular Hgb Conc. 31.4 g/dL (32.0-36.0); Mean Corpuscular Volume 71.8 fL (80.0-100.0); Neutrophils # (auto) 6.9 10 ^3/uL (1.6-8.6); Neutrophils % (auto) 72.6 % (37.0-80.0); Nucleated Red Blood Cells % 0.1 %; Platelet Count (auto) 198 10^3/uL (140-450); Red Blood Cells 3.35 10^6/uL (4.0-5.20); Red Cell Distribution Width 18.6 % (11.8-14.3)
[2023-11-22 04:23] LABS: Alanine Aminotransferase 16 U/L (7-40); Albumin 3.5 g/dL (3.2-4.8); Alkaline Phosphatase 100 U/L (46-116); Anion Gap 10 (5-15); Aspartate Aminotransferase 26 U/L (13-40); Blood Urea Nitrogen 15 mg/dL (9-23); Calcium 8.9 mg/dL (8.7-10.4); Carbon Dioxide 19 mmol/L (20-30); Chloride 106 mmol/L (98-107); Glucose 147 mg/dL (74-106); Magnesium 1.6 mg/dL (1.6-2.6); Phosphorus 2.6 mg/dL (2.4-5.1); Potassium 2.7 mmol/L (3.5-5.1); Sodium 135 mmol/L (136-145); Triglycerides 75 mg/dL (< 150)
[2023-11-22 04:24] LABS: Bilirubin, Total 0.5 mg/dL (0.2-1.0); Total Protein 5.5 g/dL (5.7-8.2)
[2023-11-22] MEDS: POTASSIUM CHL 20MEQ/100ML 100 ML IV ONE ×2 (06:44→11:30)
[2023-11-22] MEDS: NOREPINEPHRINE 8 MG/250ML KIT 250 ML IV ONE (08:07)
[2023-11-22] MEDS: SODIUM CHL 0.9% 1000 ML BAG XX ONE (15:10)
[2023-11-22] MEDS: POTASSIUM ACETATE IV NR (20:00)
[2023-11-22] MEDS: FAT EMULSION IV NR (20:00)
[2023-11-22] MEDS ORDERED: SODIUM ACETATE IV NR (20:00)
[2023-11-22] MEDS ORDERED: POTASSIUM ACETATE IV NR (20:00)
[2023-11-22] MEDS: [UNRECOGNIZED DRUG - OTHER] IV NR (20:00)
[2023-11-22] MEDS ORDERED: [UNRECOGNIZED DRUG - OTHER] IV NR (20:00)
[2023-11-22] MEDS: SODIUM ACETATE IV NR (20:00)
[2023-11-22] MEDS ORDERED: FAT EMULSION IV NR (20:00)
[2023-11-23] VITALS (46 sets, daily range): BP systolic 74–130; BP diastolic 26–74; PULSE 62–97; RESP 12–27; TEMP 98–98.4; O2SAT 49–100
[2023-11-23 04:02] LABS: Basophils # (auto) 0 10 ^3/uL (0-0.2); Eosinophils # (auto) 0.2 10 ^3/uL (0-0.8); Hemoglobin 7.8 g/dL (12.2-16.2)
[2023-11-23 04:04] LABS: Basophils % (auto) 0.7 % (0.0-2.0); Eosinophils % (auto) 4.4 % (0.0-7.0); Lymphocytes % (auto) 19.3 % (10.0-50.0); Mean Corpuscular Hgb Conc. 31.2 g/dL (32.0-36.0); Mean Corpuscular Volume 70.3 fL (80.0-100.0); Monocytes # (auto) 0.4 10 ^3/uL (0-1.3); Monocytes % (auto) 8.5 % (0.0-12.0); Neutrophils # (auto) 3.4 10 ^3/uL (1.6-8.6); Neutrophils % (auto) 67.1 % (37.0-80.0); Platelet Count (auto) 158 10^3/uL (140-450); Red Blood Cells 3.56 10^6/uL (4.0-5.20); Red Cell Distribution Width 18.4 % (11.8-14.3); White Blood Cell 5.1 10^3/uL (4.4-10.8)
[2023-11-23 04:21] LABS: Alanine Aminotransferase 18 U/L (7-40); Albumin 3.5 g/dL (3.2-4.8); Alkaline Phosphatase 98 U/L (46-116); Anion Gap 6 (5-15); Aspartate Aminotransferase 25 U/L (13-40); Bilirubin, Total 0.6 mg/dL (0.2-1.0); Blood Urea Nitrogen 9 mg/dL (9-23); Calcium 8.7 mg/dL (8.7-10.4); Carbon Dioxide 26 mmol/L (20-30); Chloride 112 mmol/L (98-107); Glucose 90 mg/dL (74-106); Magnesium 1.7 mg/dL (1.6-2.6); Phosphorus 2.4 mg/dL (2.4-5.1); Potassium 3.2 mmol/L (3.5-5.1); Sodium 144 mmol/L (136-145); Total Protein 5.6 g/dL (5.7-8.2)
[2023-11-23] MEDS: POTASSIUM CHL 20MEQ/100ML 100 ML IV ONE (12:56)
[2023-11-23] MEDS: POTASSIUM PHOSPHATE 22 MEQ in SODIUM CHL 0.9% 100 ML IV ONE (14:07)
[2023-11-23] MEDS ORDERED: SODIUM CHLORIDE 0.9% 1,000 ML IV SCH (20:00)
[2023-11-23] MEDS: PPN PER PHARMACY IV NR (20:40)
[2023-11-24] VITALS (25 sets, daily range): BP systolic 107–149; BP diastolic 39–77; PULSE 64–79; RESP 9–22; TEMP 97.3–98.6; O2SAT 62–100
[2023-11-24 05:03] LABS: Basophils # (auto) 0 10 ^3/uL (0-0.2); Eosinophils # (auto) 0.2 10 ^3/uL (0-0.8); Neutrophils # (auto) 3.4 10 ^3/uL (1.6-8.6); Red Blood Cells 3.19 10^6/uL (4.0-5.20)
[2023-11-24 05:04] LABS: Basophils % (auto) 0.8 % (0.0-2.0); Eosinophils % (auto) 4.9 % (0.0-7.0); Lymphocytes # (auto) 0.8 10 ^3/uL (0.4-5.4); Lymphocytes % (auto) 15.7 % (10.0-50.0); Mean Corpuscular Hemoglobin 21.8 pg (28.0-32.0); Mean Corpuscular Hgb Conc. 31.6 g/dL (32.0-36.0); Monocytes # (auto) 0.4 10 ^3/uL (0-1.3); Neutrophils % (auto) 69.6 % (37.0-80.0); Nucleated Red Blood Cells % 0.1 %; Platelet Count (auto) 180 10^3/uL (140-450); Red Cell Distribution Width 18.2 % (11.8-14.3); White Blood Cell 4.9 10^3/uL (4.4-10.8)
[2023-11-24 05:09] LABS: Hemoglobin 6.9 g/dL (12.2-16.2)
[2023-11-24 05:22] LABS: Alanine Aminotransferase 15 U/L (7-40); Albumin 3.4 g/dL (3.2-4.8); Alkaline Phosphatase 85 U/L (46-116); Anion Gap 7 (5-15); Aspartate Aminotransferase 33 U/L (13-40); BUN/Creatinine Ratio 6.1 (10.0-20.0); Blood Urea Nitrogen 14 mg/dL (9-23); Calcium 8.5 mg/dL (8.7-10.4); Carbon Dioxide 26 mmol/L (20-30); Chloride 111 mmol/L (98-107); Glucose 107 mg/dL (74-106); Magnesium 1.7 mg/dL (1.6-2.6); Phosphorus 3.7 mg/dL (2.4-5.1); Potassium 3.8 mmol/L (3.5-5.1); Sodium 144 mmol/L (136-145)
[2023-11-24 05:23] LABS: Bilirubin, Total 0.4 mg/dL (0.2-1.0); Total Protein 5.2 g/dL (5.7-8.2)
[2023-11-24 05:44] LABS: Hypochromia Slight; Platelet Estimate Adequate
[2023-11-24] MEDS: PPN PER PHARMACY IV NR (20:10)
[2023-11-25] VITALS (25 sets, daily range): BP systolic 97–148; BP diastolic 33–73; PULSE 63–90; RESP 10–23; TEMP 97.1–98; O2SAT 70–100
[2023-11-25 05:37] LABS: Basophils # (auto) 0 10 ^3/uL (0-0.2); Eosinophils # (auto) 0.3 10 ^3/uL (0-0.8); Hemoglobin 8.4 g/dL (12.2-16.2); Monocytes % (auto) 8.9 % (0.0-12.0); Nucleated Red Blood Cells % 0.1 %; White Blood Cell 5.1 10^3/uL (4.4-10.8)
[2023-11-25 05:43] LABS: Basophils % (auto) 0.8 % (0.0-2.0); Eosinophils % (auto) 5.9 % (0.0-7.0); Hematocrit 25.6 % (36.0-46.0); Lymphocytes # (auto) 1.1 10 ^3/uL (0.4-5.4); Lymphocytes % (auto) 20.7 % (10.0-50.0); Mean Corpuscular Hgb Conc. 32.9 g/dL (32.0-36.0); Monocytes # (auto) 0.4 10 ^3/uL (0-1.3); Neutrophils # (auto) 3.2 10 ^3/uL (1.6-8.6); Neutrophils % (auto) 63.7 % (37.0-80.0); Platelet Count (auto) 218 10^3/uL (140-450)
[2023-11-25 05:59] LABS: Red Cell Distribution Width 21.1 % (11.8-14.3)
[2023-11-25 10:55] LABS: Alanine Aminotransferase 11 U/L (7-40); Albumin 3.1 g/dL (3.2-4.8); Alkaline Phosphatase 85 U/L (46-116); Anion Gap 6 (5-15); Aspartate Aminotransferase 19 U/L (13-40); BUN/Creatinine Ratio 9.5 (10.0-20.0); Blood Urea Nitrogen 17 mg/dL (9-23); Calcium 8.4 mg/dL (8.7-10.4); Carbon Dioxide 25 mmol/L (20-30); Chloride 109 mmol/L (98-107); Glucose 111 mg/dL (74-106); Magnesium 1.7 mg/dL (1.6-2.6); Phosphorus 1.9 mg/dL (2.4-5.1); Potassium 3.4 mmol/L (3.5-5.1); Sodium 140 mmol/L (136-145)
[2023-11-25 10:56] LABS: Bilirubin, Total 0.5 mg/dL (0.2-1.0); Total Protein 4.9 g/dL (5.7-8.2)
[2023-11-25 11:46] LABS: INR 1.33 (0.9-1.15); Partial Thromboplastin Time 22.8 SEC (24.5-34.5); Prothrombin Time 13.8 sec (9.3-11.8)
[2023-11-25] MEDS: POTASSIUM PHOSPHATE 22 MEQ in SODIUM CHL 0.9% 100 ML IV ONE (15:08)
[2023-11-25] MEDS: PPN PER PHARMACY IV NR (19:57)
[2023-11-25] MEDS: EPOETIN ALFA-EPBX 10,000 UNIT/1ML VIAL SC ONE (21:00)
[2023-11-26] VITALS (26 sets, daily range): BP systolic 90–147; BP diastolic 35–90; PULSE 67–96; RESP 12–25; TEMP 97.5–98.4; O2SAT 90–99
[2023-11-26] MEDS ORDERED: MAGNESIUM SULFATE 1GM/100ML 100 ML IV SCH (07:00)
[2023-11-26] MEDS: HYDROmorphone HCL 2 MG/ML VL/or syr IV ONE (14:58)
[2023-11-26] MEDS: LIDOCAINE 1% (LOCAL ANESTH.) PF 5ml SDV ID ONE (15:30)
[2023-11-26 17:54] LABS: Alanine Aminotransferase 14 U/L (7-40); Albumin 2.9 g/dL (3.2-4.8); Alkaline Phosphatase 78 U/L (46-116); Anion Gap 5 (5-15); Aspartate Aminotransferase 22 U/L (13-40); BUN/Creatinine Ratio 10.4 (10.0-20.0); Blood Urea Nitrogen 14 mg/dL (9-23); Calcium 8.4 mg/dL (8.7-10.4); Carbon Dioxide 26 mmol/L (20-30); Chloride 106 mmol/L (98-107); Glucose 119 mg/dL (74-106); Magnesium 1.7 mg/dL (1.6-2.6); Potassium 3.2 mmol/L (3.5-5.1); Sodium 137 mmol/L (136-145)
[2023-11-26 17:55] LABS: Bilirubin, Total 0.5 mg/dL (0.2-1.0); Total Protein 4.7 g/dL (5.7-8.2)
[2023-11-26] MEDS: PPN PER PHARMACY IV NR (19:44)
[2023-11-26] MEDS: SODIUM CHLOR 0.9% PF (SALINE LOCK) 10ML VIAL/SYR IV SCH (21:32)
[2023-11-27] VITALS (26 sets, daily range): BP systolic 98–153; BP diastolic 28–132; PULSE 66–102; RESP 12–23; TEMP 97.7–98.7; O2SAT 90–100
[2023-11-27] MEDS: HYDROcodone-ACET 5/325MG TAB PO PRN (00:21)
[2023-11-27 05:17] LABS: Alanine Aminotransferase 11 U/L (7-40); Alkaline Phosphatase 79 U/L (46-116); Anion Gap 4 (5-15); Aspartate Aminotransferase 20 U/L (13-40); BUN/Creatinine Ratio 15.3 (10.0-20.0); Blood Urea Nitrogen 20 mg/dL (9-23); Calcium 8.7 mg/dL (8.7-10.4); Carbon Dioxide 28 mmol/L (20-30); Chloride 105 mmol/L (98-107); Glucose 108 mg/dL (74-106); Magnesium 1.9 mg/dL (1.6-2.6); Potassium 3.2 mmol/L (3.5-5.1); Sodium 137 mmol/L (136-145)
[2023-11-27 05:18] LABS: Bilirubin, Total 0.4 mg/dL (0.2-1.0); Phosphorus 1.6 mg/dL (2.4-5.1); Total Protein 4.9 g/dL (5.7-8.2)
[2023-11-27] MEDS: POTASSIUM PHOSPHATE 22 MEQ in SODIUM CHL 0.9% 100 ML IV ONE (10:32)
[2023-11-27] MEDS ORDERED: TPN PER PHARMACY IV SCH (11:00)
[2023-11-27] MEDS: ALBUMIN 25% 100 ML IV STA ×3 (12:48→14:56)
[2023-11-27] MEDS ORDERED: HEPARIN SODIUM (PORCINE) 5000 UNITS/ML 1ML VIAL IV ONE (13:30)
[2023-11-27] MEDS: HEPARIN 1,000 UNITS/ml 1ML VIAL IV ONE (15:22)
[2023-11-27] MEDS: DEXTROSE (50%) 50ML SYRG IV SCH (18:13)
[2023-11-27] MEDS: D5W 5% 1,000 ML IV SCH (19:00)
[2023-11-27] MEDS: TPN PER PHARMACY IV NR (20:21)
[2023-11-28] VITALS (9 sets, daily range): BP systolic 108–122; BP diastolic 34–65; PULSE 74–89; RESP 16–18; TEMP 97.4–98.4; O2SAT 92–99
[2023-11-28 13:30] LABS: Basophils # (auto) 0 10 ^3/uL (0-0.2); Basophils % (auto) 0.5 % (0.0-2.0); Eosinophils # (auto) 0.3 10 ^3/uL (0-0.8); Eosinophils % (auto) 5.5 % (0.0-7.0); Hematocrit 23.6 % (36.0-46.0); Hemoglobin 7.7 g/dL (12.2-16.2); Lymphocytes # (auto) 0.9 10 ^3/uL (0.4-5.4); Lymphocytes % (auto) 14.6 % (10.0-50.0); Mean Corpuscular Hemoglobin 23.4 pg (28.0-32.0); Mean Corpuscular Hgb Conc. 32.7 g/dL (32.0-36.0); Mean Corpuscular Volume 71.7 fL (80.0-100.0); Monocytes # (auto) 0.4 10 ^3/uL (0-1.3); Monocytes % (auto) 6.8 % (0.0-12.0); Neutrophils # (auto) 4.4 10 ^3/uL (1.6-8.6); Neutrophils % (auto) 72.6 % (37.0-80.0); Nucleated Red Blood Cells % 0.1 %; Platelet Count (auto) 140 10^3/uL (140-450); Red Blood Cells 3.29 10^6/uL (4.0-5.20); White Blood Cell 6.1 10^3/uL (4.4-10.8)
[2023-11-28 13:31] LABS: Red Cell Distribution Width 21.8 % (11.8-14.3)
[2023-11-28 13:45] LABS: Alanine Aminotransferase 12 U/L (7-40); Albumin 3.5 g/dL (3.2-4.8); Alkaline Phosphatase 65 U/L (46-116); Anion Gap 4 (5-15); Aspartate Aminotransferase 16 U/L (13-40); BUN/Creatinine Ratio 15.7 (10.0-20.0); Blood Urea Nitrogen 16 mg/dL (9-23); Calcium 8.8 mg/dL (8.7-10.4); Carbon Dioxide 29 mmol/L (20-30); Chloride 101 mmol/L (98-107); Glucose 124 mg/dL (74-106); Magnesium 1.9 mg/dL (1.6-2.6); Potassium 3.5 mmol/L (3.5-5.1); Sodium 134 mmol/L (136-145)
[2023-11-28 13:46] LABS: Bilirubin, Total 0.5 mg/dL (0.2-1.0); Phosphorus 1.4 mg/dL (2.4-5.1); Total Protein 5.3 g/dL (5.7-8.2)
[2023-11-28] MEDS: POTASSIUM CHL 20MEQ/100ML 100 ML IV ONE (16:50)
[2023-11-28] MEDS: POTASSIUM PHOSPHATE 22 MEQ in SODIUM CHL 0.9% 100 ML IV ONE (18:30)
[2023-11-28] MEDS: TPN PER PHARMACY IV NR (21:15)
[2023-11-29 05:00] VITALS: BP 107/37; PULSE 91; RESP 16; TEMP 98.1; O2SAT 97
[2023-11-29 07:34] LABS: Alanine Aminotransferase 14 U/L (7-40); Albumin 3.3 g/dL (3.2-4.8); Alkaline Phosphatase 66 U/L (46-116); Anion Gap 5 (5-15); Aspartate Aminotransferase 20 U/L (13-40); BUN/Creatinine Ratio 13.6 (10.0-20.0); Blood Urea Nitrogen 16 mg/dL (9-23); Calcium 8.6 mg/dL (8.7-10.4); Carbon Dioxide 27 mmol/L (20-30); Chloride 101 mmol/L (98-107); Glucose 118 mg/dL (74-106); Magnesium 1.7 mg/dL (1.6-2.6); Potassium 3.3 mmol/L (3.5-5.1); Sodium 133 mmol/L (136-145)
[2023-11-29 07:35] LABS: Bilirubin, Total 0.4 mg/dL (0.2-1.0); Total Protein 5.1 g/dL (5.7-8.2)
[2023-11-29 08:00] VITALS: PULSE 91; RESP 18; O2SAT 96
[2023-11-29 09:00] VITALS: BP 93/39; PULSE 91; RESP 18; TEMP 98.4; O2SAT 96
[2023-11-29] MEDS: POTASSIUM PHOSPHATE 26.4 MEQ in SODIUM CHL 0.9% 100 ML IV ONE (11:44)
[2023-11-29 12:30] VITALS: BP 106/60; PULSE 80; RESP 18
[2023-11-29 17:00] VITALS: BP 114/61; PULSE 67; RESP 19; TEMP 99.1; O2SAT 92
[2023-11-29] MEDS ORDERED: TPN PER PHARMACY IV NR (20:00)
[2023-11-29 21:00] VITALS: BP 116/60; PULSE 104; RESP 18; TEMP 97.9; O2SAT 96
== END 2023-11-29 19:55 | DRG 720 ==
LOC: EDBD 13:44 → EDUNIT# 13:44 → ER 13:49 → TELE 11-21 06:26 → ICU WEST 11-22 01:40 → DOU IN ICU 11-23 16:19 → EAST 11-27 17:46 → TELE-EAST 11-28 16:27
PROVIDERS: ADMIT Nurse Practitioner; ATTEND Nurse Practitioner Acute Care
PROC: 05HA33Z Insertion of Infusion Device into Left Brachial Vein, Percutaneous Approach (ICD-10-PCS; principal; 2023-11-21)
PROC: B54NZZA Ultrasonography of Left Upper Extremity Veins, Guidance (ICD-10-PCS; 2023-11-21)
PROC: 5A1D70Z Performance of Urinary Filtration, Intermittent, Less than 6 Hours Per Day (ICD-10-PCS; 2023-11-22)
PROC: 30233N1 Transfusion of Nonautologous Red Blood Cells into Peripheral Vein, Percutaneous Approach (ICD-10-PCS; 2023-11-24)
PROC: 5A1D70Z Performance of Urinary Filtration, Intermittent, Less than 6 Hours Per Day (ICD-10-PCS; 2023-11-25)
PROC: 02HV33Z Insertion of Infusion Device into Superior Vena Cava, Percutaneous Approach (ICD-10-PCS; 2023-11-26)
PROC: B548ZZA Ultrasonography of Superior Vena Cava, Guidance (ICD-10-PCS; 2023-11-26)
PROC: 5A1D70Z Performance of Urinary Filtration, Intermittent, Less than 6 Hours Per Day (ICD-10-PCS; 2023-11-27)
DX: A41.89 Other specified sepsis (principal); J96.01 Acute respiratory failure with hypoxia; R65.21 Severe sepsis with septic shock; A04.72 Enterocolitis due to Clostridium difficile, not specified as recurrent; I21.A1 Myocardial infarction type 2; I12.0 Hypertensive chronic kidney disease with stage 5 chronic kidney disease or end stage renal disease; D63.1 Anemia in chronic kidney disease; N32.1 Vesicointestinal fistula; E11.22 Type 2 diabetes mellitus with diabetic chronic kidney disease; J44.9 Chronic obstructive pulmonary disease, unspecified; K57.30 Diverticulosis of large intestine without perforation or abscess without bleeding; E86.0 Dehydration; E87.6 Hypokalemia; Z86.73 Personal history of transient ischemic attack (TIA), and cerebral infarction without residual deficits; Z90.710 Acquired absence of both cervix and uterus; Z79.899 Other long term (current) drug therapy; Z79.82 Long term (current) use of aspirin; Z79.4 Long term (current) use of insulin
CPT/HCPCS: 36415; 36569; 36600; 70450; 71045; 74021; 74176; 74177; 80053; 81001; 82805; 82962; 83605; 83690; 83735; 84100; 84478; 84484; 85025; 85048; 85610; 85730; 86850; 86900; 86901; 86922; 87045; 87081; 87086; 87088; 87177; 87186; 87427; 87493; 90935; 93005; 93306; 94640; 96361; 96365; 96367; 96375; 96376; 99291; G0378; J1642; J1815; J2405; J2470; J3480; J3490; P9047

== ENCOUNTER 2024-10-08 10:31 | Emergency (ER) | payer MEDICARE, MEDICAID ==
[~2024-10-08] VITALS: Ht 165.1 cm; Wt 80.0 kg
[~2024-10-08 10:31] MED LIST changes: -DIPH25TA31 PO; -ONDA-188 PO
--- NOTE | 2024-10-08 10:47 | ED.PDOC ---
Musculoskeletal HPI Comments HPI: This is a 74 year old female presenting to the ED with chief complaint of foot pain. Patient reports that she has been experiencing pain and swelling to the top of her left foot since yesterday. Patient denies any trauma, fall, numbness, weakness, tingling, chest pain, or SOB. Initial Vitals BP: HR: RR: O2 Sat: Temp: Past Medical history: HTN, DM, COPD, ESRD, Asthma, Gout, Anemia, Dementia Past Surgical history: Hysterectomy Social History: Denies smoking, ETOH, and drug use. Allergies: NKDA HPI: Poor Historian. REVIEW OF SYSTEMS: CONSTITUTIONAL: Denies acute: fever, diaphoresis, chills, generalized weakness. HEAD: Denies acute: headache, photophobia Eyes: Denies acute: Double vision, vision loss, eye pain, eye discharge. EARS: Denies acute: tinnitus, hearing loss, ear discharge, ear pain, THROAT: Denies acute: sore throat, swelling, difficulty swallowing , pain with swallowing, change in voice. NECK: Denies acute: neck pain, neck swelling, stiff neck. HEART: Denies acute : chest pain, palpitations, LUNGS: Denies acute: SOB, wheezing, cough, hemoptysis ABDOMEN: Denies acute: abdominal pain, Nausea, Vomiting, diarrhea, melena , hematemesis, hematochezia SKIN: Denies acute: rash, redness, lesions, itchiness. EXTREMITIES: Denies acute: calf pain, numbness, tingling, weakness Denies acute: Low back pain. Neuro: Denies acute: focal neurological deficit, motor or sensory focal neurological deficit, tremors, seizure like activity, confusion, dizziness, change in mental status, loss of bowel or bladder function, cauda equina like symptoms. : Denies acute: dysuria, hematuria, flank pain, increase in urinary frequency. PSYCH: Denies acute: hallucination, suicidal ideation, homicidal ideation. FEMALE: Denies acute: abnormal vaginal bleeding, foul odor, unusual discharge. PHYSICAL EXAM: General: ----no----acute distress, awake and alert. Head: normocephalic, atraumatic. Neck: supple, trachea is midline, no swelling. Throat: Normal phonation. Eyes:, no erythema, no purulent discharge, no proptosis, no icterus. Heart: regular rate, regular rhythm, no significant murmur appreciated. Lungs: no apparent respiratory distress, Able to speak in full sentences. No wheezing, no rhonchi, no crackles. No stridors Clear to auscultation bilaterally. Abdomen: non tender to palpation, non distended, soft, no guarding, no rebound, + bowel sounds. Neuro: Awake, Alert, oriented to name, self, situation, follows commands GCS=15. Speech is normal. Skin: no petechia, no purpura, no cyanosis, non-pale, not jaundice. Lower extremities: --no - Pitting edema no acute deformity, no focal swelling, no calf TTP. Noted old surgical scars [id number] of the left lower extremity. Evaluation of the affected foot: Patient points specifically at the dorsum of her mid foot where she has a patch on. I removed with a patch. There is no erythema or swelling or lesions. Patient is slightly tender to palpation in the area. Patient is neurovascularly intact in the affected extremity. Pedal pulses palpable. Sensory and motor are present. Makes eye contact. moves all four extremities. Face: no apparent facial droop. Pedal pulses are palpable. ED COURSE: DISCLAIMER: This medical document was created using an electronic medical record system with voice recognition software and computerized dictation system. Although this document has been carefully reviewed, there might still be some phonetic and typographical errors. Occasional wrong-word or "sound-alike" substitutions may have occurred due to the inherent limitations of voice recognition software. These areas are purely typographical due to imperfections of the software programs and do not reflect any compromise in the patient's medical care. Please read the chart carefully and recognize, using context, where these substitutions have occurred. Chief Complaint: Lower Extremity Time Seen by MD: 10:45 Primary Care Provider: Leia Reviewed Notes: Nurses Notes, Medications, Allergies Allergies: Coded Allergies: No Known Drug Allergy (Verified Allergy, Unknown, 11/10/23) Home Meds Reported Medications Zolpidem Tartrate (Zolpidem Tartrate) 10 Mg Tab, 1 TAB PO QPM for 30 Days, #30 11/14/23 Hydrocodone-Acetaminophen (Hydrocodone Bitartrate/AC 5-325 mg) 1 Tab Tab, 1 TAB PO Q6HR PRN for MODERATE TO SEVERE PAIN for 15 Days, #60 11/14/23 Divalproex Sodium (Divalproex Sodium Dr) 500 Mg Tab, 750 MG PO BID for MOOD DISORDERS for 31 Days, #186 11/14/23 Furosemide (Furosemide) 20 Mg Tab, 1 TAB PO BID for 31 Days, #62 11/14/23 Amlodipine Besylate (Amlodipine Besylate) 10 Mg Tab, 1 TAB PO DAILY for 31 Days, #31 11/14/23 Albuterol Sulfate (Albuterol Sulfate) 0.083 % Neb, 1 VIAL NEB Q6HR 08/14/23 Ferrous Sulfate (Ferosul) 325 Mg Tab, 1 TAB PO TID 08/14/23 Donepezil Hydrochloride (DONEPEZIL HCL) 10 Mg Tab, 1 TAB PO DAILY 08/14/23 Aspirin (Aspirin Low Dose) 81 Mg Chw, 1 TAB PO DAILY, #30 TAB 3 Refills 08/14/23 Atorvastatin Calcium (Lipitor) 40 Mg Tab, 1 TAB PO DAILY, #30 TAB 5 Refills 08/14/23 Losartan Potassium (Losartan Potassium) 25 Mg Tab, 1 TAB PO DAILY for 30 Days, MG 08/14/23 Metoprolol Tartrate (Lopressor) 25 Mg Tb, 1 TAB PO BID, TAB 0 Refills 08/14/23 Triamterene & Hydrochlorothiaz (Maxzide) 1 Tab Tab, 1 TAB PO DAILY, #30 TAB 5 Refills 08/14/23 Information Source: Patient Mode of Arrival: Wheelchair Was a procedure done? Was a procedure done?: No X-Ray, Labs, Meds, VS Vital Signs Date Time Temp Pulse Resp B/P (MAP) Pulse Ox O2 Delivery O2 Flow Rate FiO2 10/08/24 10:38 98.1 60 18 125/97 (106) [address] [address] Ph: [phone] DIAGNOSTIC IMAGING Diagnostic Imaging Report : [id number] Signed PATIENT: PIPE DALEY ACCT: [id number] UNIT: [id number] : 1950 LOC: ER ROOM / BED: / AGE / SEX: 74 / F ADM STATUS: REG ER SERVICE 1046 ORDERING PHYSICIAN: HAYDE RAM DO PROCEDURE(s): LFOOT - L FOOT 3 VIEW XRAY REASON: pain at the dorsum of the foot ORDER NUMBER(s): [id number], ACCESSION NUMBER(s): [id number] EXAM: XY L FOOT 3 VIEW XRAY HISTORY: Pain at the dorsum of the foot COMPARISON: None TECHNIQUE: Three views of the left foot were performed. FINDINGS: Bones are demineralized. No acute fracture or dislocation are identified about the left foot. Hallux valgus. Midfoot and hindfoot arthrosis. Dorsal spurring of the talus. Chronic deformity of the distal tibia. IMPRESSION: 1. No acute fracture of the left foot. 2. Midfoot and hindfoot osteoarthrosis. ATED BY: IDALIA GARCIA MD DICTATED DATE/TIME: 10/08/24 111 SIGNED BY: IDALIA GARCIA MD SIGNED DATE/TIME: 10/08/24 111 CC: Time of 1ST Reevaluation: 11:45 Reevaluation 1ST: Unchanged Patient Education/Counseling: Diagnosis, Treatment Family Education/Counseling: No Family Present Departure 1 Departure Time of Disposition: 11:21 Impression: Primary Impression: Left foot pain Additional Impression: Osteoarthritis of midfoot Additional Instructions: Additional instructions: You MUST follow-up with your primary care/family doctor in 1 to 2 days. If you are unable to see your primary care/family doctor, please return to our emergency room for re-assessment and re-evaluation in 1 to 2 days. Return to the emergency room here in our facility or to the nearest ER [facility] if your symptoms change or worsen. CONSULTATIONS: you MUST Follow-up for consultation as soon as possible with: -orthopedic doctor/Podiatry in 1-2 days. Please call for appointment. You MUST call the consultants office yourself to make an appointment. You may need to arrange that through your insurance and/or your primary/family doctor. If you are unable to see the wireless sales consultant in 1 to 2 days, you must return to our emergency room (or any other ER of your choice) for re-assessment and re-evaluation. Adequate fluid hydration. Below is a copy of your radiological report for follow up: [facility] [place] [id number] [facility] [address] Ph: [phone] DIAGNOSTIC IMAGING Diagnostic Imaging Report : [id number] Signed PATIENT: PIPE DALEY ACCT: [id number] UNIT: [id number] : 1950 LOC: ER ROOM / BED: / AGE / SEX: 74 / F ADM STATUS: REG ER SERVICE 1046 ORDERING PHYSICIAN: HAYDE RAM DO PROCEDURE(s): LFOOT - L FOOT 3 VIEW XRAY REASON: pain at the dorsum of the foot ORDER NUMBER(s): [id number], ACCESSION NUMBER(s): [id number] EXAM: XY L FOOT 3 VIEW XRAY HISTORY: Pain at the dorsum of the foot COMPARISON: None TECHNIQUE: Three views of the left foot were performed. FINDINGS: Bones are demineralized. No acute fracture or dislocation are identified about the left foot. Hallux valgus. Midfoot and hindfoot arthrosis. Dorsal spurring of the talus. Chronic deformity of the distal tibia. IMPRESSION: 1. No acute fracture of the left foot. 2. Midfoot and hindfoot osteoarthrosis. ATED BY: IDALIA GARCIA MD DICTATED DATE/TIME: 10/08/241111 SIGNED BY: IDALIA GARCIA MD SIGNED DATE/TIME: 10/08/241111 CC: Critical Care Note Critical Care Time?: No I personally scribed for HAYDE RAM DO ([email or web address]) on 10/08/24 at 10:47. Electronically submitted by Gilbert Dick ([email or web address]). HAYDE RAM DO Oct 08, 2024 10:47
--- NOTE | 2024-10-08 11:14 | DVH ---
EXAM: XY L FOOT 3 VIEW XRAY HISTORY: Pain at the dorsum of the foot COMPARISON: None TECHNIQUE: Three views of the left foot were performed. FINDINGS: Bones are demineralized. No acute fracture or dislocation are identified about the left foot. Hallux valgus. Midfoot and hindfoot arthrosis. Dorsal spurring of the talus. Chronic deformity of the dista l tibia. IMPRESSION: 1. No acute fracture of the left foot. 2. Midfoot and hindfoot osteoarthrosis.
[2024-10-08 11:33] VITALS: PULSE 89
[2024-10-08 11:36] VITALS: BP 111/43; PULSE 59; RESP 19; TEMP 97.2; O2SAT 100
== END 2024-10-08 11:37 | disposition home or self-care (01) ==
LOC: ER 10:31
DX: M19.072 Primary osteoarthritis, left ankle and foot (principal); M79.672 Pain in left foot; E11.22 Type 2 diabetes mellitus with diabetic chronic kidney disease; K21.9 Gastro-esophageal reflux disease without esophagitis; F03.90 Unspecified dementia, unspecified severity, without behavioral disturbance, psychotic disturbance, mood disturbance, and anxiety; I12.0 Hypertensive chronic kidney disease with stage 5 chronic kidney disease or end stage renal disease; N18.6 End stage renal disease; Z79.82 Long term (current) use of aspirin; Z79.899 Other long term (current) drug therapy; Z90.710 Acquired absence of both cervix and uterus; Z86.2 Personal history of diseases of the blood and blood-forming organs and certain disorders involving the immune mechanism
CPT/HCPCS: 73630

== ENCOUNTER 2024-10-10 21:20 | Emergency (ER) | payer MEDICARE, MEDICAID ==
[~2024-10-10] VITALS: Ht 160 cm; Wt 84.0 kg
--- NOTE | 2024-10-11 02:44 | ED.PDOC ---
Back pain HPI HPI Comments PT BIBA FOR CC OF L FOOT PAIN X 3 DAYS. PER EMS, PT HAS BEEN HAVING DIFFICULTY AMBULATING. PT DENIES TRAUMA AND REPORTS PAIN IS SUDDEN ONSET Chief Complaint: Lower Extremity Time Seen by MD: 21:43 Primary Care Provider: ? Reviewed Notes: Nurses Notes, Street And Building Decorator Notes, Medications, Allergies Allergies: Coded Allergies: No Known Drug Allergy (Verified Allergy, Unknown, 11/10/23) Home Meds Reported Medications Zolpidem Tartrate (Zolpidem Tartrate) 10 Mg Tab, 1 TAB PO QPM for 30 Days, #30 11/14/23 Hydrocodone-Acetaminophen (Hydrocodone Bitartrate/AC 5-325 mg) 1 Tab Tab, 1 TAB PO Q6HR PRN for MODERATE TO SEVERE PAIN for 15 Days, #60 11/14/23 Divalproex Sodium (Divalproex Sodium Dr) 500 Mg Tab, 750 MG PO BID for MOOD DISORDERS for 31 Days, #186 11/14/23 Furosemide (Furosemide) 20 Mg Tab, 1 TAB PO BID for 31 Days, #62 11/14/23 Amlodipine Besylate (Amlodipine Besylate) 10 Mg Tab, 1 TAB PO DAILY for 31 Days, #31 11/14/23 Albuterol Sulfate (Albuterol Sulfate) 0.083 % Neb, 1 VIAL NEB Q6HR 08/14/23 Ferrous Sulfate (Ferosul) 325 Mg Tab, 1 TAB PO TID 08/14/23 Donepezil Hydrochloride (DONEPEZIL HCL) 10 Mg Tab, 1 TAB PO DAILY 08/14/23 Aspirin (Aspirin Low Dose) 81 Mg Chw, 1 TAB PO DAILY, #30 TAB 3 Refills 08/14/23 Atorvastatin Calcium (Lipitor) 40 Mg Tab, 1 TAB PO DAILY, #30 TAB 5 Refills 08/14/23 Losartan Potassium (Losartan Potassium) 25 Mg Tab, 1 TAB PO DAILY for 30 Days, MG 08/14/23 Metoprolol Tartrate (Lopressor) 25 Mg Tb, 1 TAB PO BID, TAB 0 Refills 08/14/23 Triamterene & Hydrochlorothiaz (Maxzide) 1 Tab Tab, 1 TAB PO DAILY, #30 TAB 5 Refills 08/14/23 Information Source: Patient Mode of Arrival: EMS Past Medical History PAST MEDICAL HISTORY: Asthma, CKF, COPD, Dementia, ESRD, HTN Surgical History: Hysterectomy GANG WORKER History: No Pertinent GANG WORKER History Family History Family History: Family hx of Cancer Social History Smoker: Non-Smoker Alcohol: Denies ETOH Use Drugs: Denies Drug Use Lives In: Home Constitutional: denies: chills, diaphoresis, fatigue, fever, malaise, sweats, weakness, others EENTM: denies: blurred vision, double vision, ear bleeding, ear discharge, ear drainage, ear pain, ear ringing, eye pain, eye redness, hearing loss, mouth pain, mouth swelling, nasal discharge, nose bleeding, nose congestion, nose pain, photophobia, tearing, throat pain, throat swelling, voice changes, others Respiratory: denies: cough, hemoptysis, orthopnea, SOB at rest, shortness of breath, SOB with excertion, stridor, wheezing, others Cardiovascular: denies: chest pain, dizzy spells, diaphoresis, Dyspnea on exer tion, edema, irregular heart beat, left arm pain, lightheadedness, palpitations, PND, syncope, others Gastrointestinal: denies: abdomen distended, abdominal pain, blood streaked bowels, constipated, diarrhea, dysphagia, difficulty swallowing, hematemesis, melena, nausea, poor appetite, poor fluid intake, rectal bleeding, rectal pain, vomiting, others Genitourinary: denies: abnormal vagina bleeding, burning, dyspareunia, dysuria, flank pain, frequency, hematuria, incontinence, pain, , vagina discharge, urgency, others Neurological: denies: dizziness, fainting, headache, left sided numbness, left sided weakness, numbness, paresthesia, pre-existing deficit, right sided numbness, right sided weakness, seizure, speech problems, tingling, tremors, weakness, others Musculoskeletal: reports: joint swelling, others (LEFT FOOT PAIN ); denies: back pain, gout, joint pain, muscle pain, muscle stiffness, neck pain Integumetry: denies: bruises, change in color, change in hair/nails, dryness, laceration, lesions, lumps, rash, wounds, others Allergic/Immunocompromised: denies: Difficulty Healing, Frequent Infections, Hives, Itching, others Hematologic/Lymphatic: denies: anemia, blood clots, easy bleeding, easy bruising, swollen glands, others Endocrine: denies: excessive hunger, excessive sweating, excessive thirst, excessive urination, flushing, intolerance to cold, intolerance to heat, unexplained weight gain, unexplained weight loss, others Psychiatric: denies: anxiety, bipolar disorder, depression, hopeless, panic disorder, schizophrenia, sleepless, suicidal, others Physical Exam General Appearance: No Apparent Distress, Normal HEENT: Pharynx Normal Neck: Full Range of Motion, Non-Tender Respiratory: Lungs Clear, No Respiratory Distress, Normal Breath Sounds Cardiovascular: No Edema, No JVD, No Murmur, No Gallop, Normal Peripheral Pulses, Regular Rate/Rhythm Breast Exam: Deferred Gastrointestinal: No Organomegaly, Non Tender, No Pulsatile Mass, Normal Bowel Sounds, Soft Genitalia: Deferred Pelvic: Deferred Rectal: Deferred Extremities: Normal capillary refill, Normal inspection, Normal range of motion, Non-tender, Swelling (TRACE SWELLING LEFT FOOT DORSAL ASPECT STRENGTH SENSORY MOTION INTACT POSITIVE PEDAL PULSE MODERATE TENDERNESS ON PALPATION) Musculoskeletal : Apperance: Normal Neurologic: Alert, No Motor Deficits, Normal Affect, Normal Mood, No Sensory Deficits Cerebellar Function: Normal Reflexes: Normal Skin: Dry, Normal Color, Warm Lymphatic: No Adenopathy Was a procedure done? Was a procedure done?: No Back Pain Differential Dx Differential Diagnosis: Fracture, Musculoskeletal Pain, Strain X-Ray, Labs, Meds, VS Vital Signs Date Time Temp Pulse Resp B/P (MAP) Pulse Ox O2 Delivery O2 Flow Rate FiO2 10/10/24 21:20 99.3 67 16 116/61 (79) 92 99.3 [place] [address] Ph: [phone] DIAGNOSTIC IMAGING Diagnostic Imaging Report : [id number] Signed PATIENT: PIPE DALEY ACCT: [id number] UNIT: [id number] : 1950 LOC: ER ROOM / BED: / AGE / SEX: 74 / F ADM STATUS: REG ER SERVICE 53 ORDERING PHYSICIAN: LIBBY HOLLINS PROCEDURE(s): LFTCT - CT L FOOT WO CONTRAST REASON: L FOOT PAIN ORDER NUMBER(s): [id number], ACCESSION NUMBER(s): [id number] INDICATION: L FOOT PAIN COMPARISON: None TECHNIQUE: CT of the left foot was performed without contrast. Volume transverse images were obtained and reconstructed in multiple planes using bone and soft tissue algorithms. Radiation Dose Information: CT Dose: CTDI volume is 7.75 mGy. Dose-length product is 196.4 mGy*cm FINDINGS: Irregular diffuse osseous demineralization noted. Chronic appearing fracture deformities of the distal fibula and lateral margin of the distal tibia. Polyarticular arthropathy predominantly throughout the midfoot, talonavicular, talocalcaneal and tibiotalar joints marked by joint space narrowing, marginal osteophytosis and subchondral sclerosis with periarticular cystic degenerative changes. No abnormal fluid collections to suggest abscess formation. No definite radiog raphic evidence of osteomyelitis. No evidence of acute fracture. No joint effusion identified. IMPRESSION: 1. Moderately irregular generalized osseous demineralization, polyarticular arthropathy throughout the mid and hindfoot and sequelae of remote posttraumatic change within the distal fibula and lateral distal tibia without evidence of acute osseous abnormality, abscess formation or definite radiographic evidence of osteomyelitis. 2. All CT scans at this medical facility are performed using dose modulation techniques as appropriate to a performed exam including the following: Automated exposure control was utilized; adjustment of the MA and/or KV according to patient size; and use of iterative reconstruction technique. ATED BY: ZAID CHENEY MD DICTATED DATE/TIME: 10/11/24645 SIGNED BY: ZAID CHENEY MD SIGNED DATE/TIME: 10/11/24645 CC: X-Ray, Labs, Meds, VS Comment Patient was seen by a previous provider. Patient was given to me at change of shift pending the results of a CT scan. CT scan was done which did not show any acute fracture. Patient will be given something for pain here and sent home to follow up with her primary care doctor. Time of 1ST Reevaluation: 21:43 Reevaluation 1ST: Unchanged Reevaluation 2ND: Unchanged Patient Education/Counseling: Diagnosis, Treatment, Prognosis, Need For Follow Up Family Education/Counseling: No Family Present SEPSIS Sepsis Screen Date sepsis recognized/suspect: Oct 10, 2024 Time Sepsis recognized/suspect: 2119 Recent Procedure: No On Antibiotic Therapy: No Respiratory Rate >20: No Heart Rate >90: No Temp<36 C (96.8 F) or >38.3 C: No SBP <90 or MAP <65 mmHG: No New Acute Mental Status Change: No Is the patient on CPAP, BIPAP,: No Physician Orders Ct L Foot Wo Contrast (10/10/24 21:54) Vital Signs Date Time Temp Pulse Resp B/P (MAP) Pulse Ox O2 Delivery O2 Flow Rate FiO2 10/10/24 21:20 99.3 67 16 116/61 (79) 92 99.3 Departure 1 Departure Time of Disposition: 07:09 Impression: Primary Impression: Osteoarthritis of midfoot Disposition: 01 HOME / SELF CARE / HOMELESS Condition: Stable Additional Instructions: CT scan of your foot was normal Please limit use Follow-up with your regular doctor in the next 2 3 days Take the anti-inflammatories as needed for pain e-Prescriptions Ibuprofen Micronized (Ibuprofen) 600 Mg Tab 600 MG PO Q6HPRN PRN for 5 Days, #20 TAB Prov: MCKINLEY BRYAN 10/11/24 Discharged With: Self Critical Care Note Critical Care Time?: No Stability Stability form required: No I personally scribed for ER ([email or web address]) on 10/11/24 at 07:03. Electronically submitted by Nicolas Mora ([email or web address]). LIBBY HOLLINS MOTOR VEHICLE PARTS INTERPRETER Oct 11, 2024 02:44 ER Oct 11, 2024 07:03 MCKINLEY BRYAN Oct 11, 2024 07:10
--- NOTE | 2024-10-11 06:49 | DVH ---
INDICATION: L FOOT PAIN COMPARISON: None TECHNIQUE: CT of the left foot was performed without contrast. Volume transverse images were obtained and reconstructed in multiple planes using bone and soft tissue algorithms. Radiation Dose Information: CT Dose: CTDI volume is 7.75 mGy. Dose-length product is 196.4 mGy*cm FINDINGS: Irregular diffuse osseous demineralization noted. Chronic appearing fracture deformities of the dist al fibula and lateral margin of the distal tibia. Polyarticular arthropathy predominantly throughout the midfoot, talonavicular, talocalcaneal and tibi otalar joints marked by joint space narrowing, marginal osteophytosis and subchondral sclerosis with periarticular cystic degenerative changes. No abnormal fluid collections to suggest abscess formation. No definite radiographic evidence of oste omyelitis. No evidence of acute fracture. No joint effusion identified. IMPRESSION: 1. Moderately irregular generalized osseous demineralization, polyarticular arthropathy throughout th e mid and hindfoot and sequelae of remote posttraumatic change within the distal fibula and lateral d istal tibia without evidence of acute osseous abnormality, abscess formation or definite radiographic evidence of osteomyelitis. 2. All CT scans at this medical facility are performed using dose modulation techniques as appropriat e to a performed exam including the following: Automated exposure control was utilized; adjustment of the MA and/or KV according to patient size; and use of iterative reconstruction technique.
[2024-10-11] MEDS ORDERED: IBUP1TAB5 PO (07:12)
[2024-10-11] MEDS: HYDROcodone-ACET 10/325MG TAB PO ONE (08:42)
[2024-10-11 08:45] VITALS: BP 154/73; PULSE 65; RESP 16; TEMP 98.2; O2SAT 98
== END 2024-10-11 08:45 | disposition home or self-care (01) ==
LOC: EDBD 21:20 → ER 21:20
DX: M19.072 Primary osteoarthritis, left ankle and foot (principal); J45.909 Unspecified asthma, uncomplicated; F03.90 Unspecified dementia, unspecified severity, without behavioral disturbance, psychotic disturbance, mood disturbance, and anxiety; I12.0 Hypertensive chronic kidney disease with stage 5 chronic kidney disease or end stage renal disease; N18.6 End stage renal disease; J44.9 Chronic obstructive pulmonary disease, unspecified; Z90.710 Acquired absence of both cervix and uterus; Z79.82 Long term (current) use of aspirin; Z79.899 Other long term (current) drug therapy
CPT/HCPCS: 73700

== ENCOUNTER 2025-02-24 12:24 | Inpatient (IN) | payer MEDICARE, MEDICAID ==
[2025-02-24] VITALS (10 sets, daily range): BP systolic 101–133; BP diastolic 43–53; PULSE 75–108; RESP 12–21; TEMP 98.2–100; O2SAT 90–98
[~2025-02-24] VITALS: Ht 157.5 cm; Wt 89.0 kg
[~2025-02-24 12:24] MED LIST changes: +IBUP1TAB5 PO
--- NOTE | 2025-02-24 12:58 | ED.PDOC ---
SOB-HPI HPI Comments This is a 75 year old female presenting to the ED with chief complaint of SOB. Patient reports that she has been experiencing SOB with associated cough, nausea, vomiting, and abdominal pain for the past few days. Patient relays that she is on O2 as needed at home due to having COPD. Patient denies any diarrhea, fever, chills, chest pain, dysuria, or flank pain. Chief Complaint: Abdominal Pain Time Seen by MD: 12:57 Primary Care Provider: ? Reviewed notes: Nurses Notes, Medications, Allergies Information Source: Patient Mode of Arrival: Wheelchair Severity: Moderate Timing: Hours Duration: Since onset Context: At Rest PE Risk Factors: None History of: COPD Associated Signs and Symptoms: Cough If cough with SOB: Non-Productive Past Medical History PAST MEDICAL HISTORY: Asthma, CKF, COPD, Dementia, ESRD, HTN Surgical History: Hysterectomy PORTER MARINA History: No Pertinent PORTER MARINA History Family History Family History: Family hx of Cancer Social History Smoker: Non-Smoker Alcohol: Denies ETOH Use Drugs: Denies Drug Use Lives In: Home Constitutional: denies: chills, diaphoresis, fatigue, fever, malaise, sweats, weakness, others EENTM: denies: blurred vision, double vision, ear bleeding, ear discharge, ear drainage, ear pain, ear ringing, eye pain, eye redness, hearing loss, mouth pain, mouth swelling, nasal discharge, nose bleeding, nose congestion, nose pain, photophobia, tearing, throat pain, throat swelling, voice changes, others Respiratory: reports: cough, shortness of breath; denies: hemoptysis, orthopnea, SOB at rest, SOB with excertion, stridor, wheezing, others Cardiovascular: denies: chest pain, dizzy spells, diaphoresis, Dyspnea on exertion, edema, irregular heart beat, left arm pain, lightheadedness, palpitations, PND, syncope, others Gastrointestinal: reports: abdominal pain, nausea, vomiting; denies: abdomen distended, blood streaked bowels, constipated, diarrhea, dysphagia, difficulty swallowing, hematemesis, melena, poor appetite, poor fluid intake, rectal bleeding, rectal pain, others Genitourinary: denies: abnormal vagina bleeding, burning, dyspareunia, dysuria, flank pain, frequency, hematuria, incontinence, pain, , vagina discharge, urgency, others Neurological: denies: dizziness, fainting, headache, left sided numbness, left sided weakness, numbness, paresthesia, pre-existing deficit, right sided numbness, right sided weakness, seizure, speech problems, tingling, tremors, weakness, others Musculoskeletal: denies: back pain, gout, joint pain, joint swelling, muscle pain, muscle stiffness, neck pain, others Integumetry: denies: bruises, change in color, change in hair/nails, dryness, laceration, lesions, lumps, rash, wounds, others Allergic/Immunocompromised: denies: Difficulty Healing, Frequent Infections, Hives, Itching, others Hematologic/Lymphatic: denies: anemia, blood clots, easy bleeding, easy bruising, swollen glands, others Endocrine: denies: excessive hunger, excessive sweating, excessive thirst, excessive urination, flushing, intolerance to cold, intolerance to heat, unexplained weight gain, unexplained weight loss, others Psychiatric: denies: anxiety, bipolar disorder, depression, hopeless, panic disorder, schizophrenia, sleepless, suicidal, others All Other Systems: Reviewed and Negative Physical Exam General Appearance: Moderate Distress, Normal HEENT: Normal ENT Inspection, Pharynx Normal, TMs Normal Neck: Full Range of Motion, Non-Tender, Normal, Normal Inspection Respiratory: Chest Non-Tender, No Accessory Muscle Use, Other (Coarse breath sounds) Cardiovascular: No Edema, No JVD, No Murmur, No Gallop, Normal Peripheral Pulses, Regular Rate/Rhythm Breast Exam: Deferred Gastrointestinal: No Organomegaly, Non Tender, No Pulsatile Mass, Normal Bowel Sounds, Soft Genitalia: Deferred Pelvic: Deferred Rectal: Deferred Extremities: No calf tenderness, Normal capillary refill, Normal inspection, Normal range of motion, Non-tender, No pedal edema Musculoskeletal : Apperance: Normal Neurologic: Alert, 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 Was a procedure done?: No Differential Dx Differential Diagnosis: Anxiety, Asthma, Bronchitis X-Ray, Labs, Meds, VS Vital Signs Date Time Temp Pulse Resp B/P (MAP) Pulse Ox O2 Delivery O2 Flow Rate FiO2 02/24/25 12:58 80 02/24/25 12:45 80 02/24/25 12:27 98.0 79 24 93/42 90 98.0 Lab Test 02/24/25 13:01 Range/Units White Blood Count 16.7 H 4.4-10.8 10^3/uL Red Blood Count 3.63 L 4.0-5.20 10^6/uL Hemoglobin 6.8 *L 12.2-16.2 g/dL Hematocrit 23.8 L 36.0-46.0 % Mean Corpuscular Volume 65.6 L 80.0-100.0 fL Mean Corpuscular Hemoglobin 18.8 L 28.0-32.0 pg Mean Corpuscular Hemoglobin Concent 28.7 L 32.0-36.0 g/dL Red Cell Distribution Width 22.5 H 11.8-14.3 % Platelet Count 423 140-450 10^3/uL Mean Platelet Volume 8.5 6.9-10.8 fL Neutrophils (%) (Auto) 87.0 H 37.0-80.0 % Lymphocytes (%) (Auto) 4.9 L 10.0-50.0 % Monocytes (%) (Auto) 6.1 0.0-12.0 % Eosinophils (%) (Auto) 1.0 0.0-7.0 % Basophils (%) (Auto) 1.0 0.0-2.0 % Neutrophils # (Auto) 14.6 H 1.6-8.6 10 ^3/uL Lymphocytes # (Auto) 0.8 0.4-5.4 10 ^3/uL Monocytes # (Auto) 1.0 0-1.3 10 ^3/uL Eosinophils # (Auto) 0.2 0-0.8 10 ^3/uL Basophils # (Auto) 0.2 0-0.2 10 ^3/uL Nucleated Red Blood Cells 0.3 % Platelet Estimate Adequate Large Platelets Few Hypochromasia (manual) Slight Anisocytosis (manual) Slight Microcytosis Slight Schistocytes Few Sodium Level 141 136-145 mmol/L Potassium Level 6.6 *H 3.5-5.1 mmol/L Chloride Level 112 H 98-107 mmol/L Carbon Dioxide Level 16 L 20-31 mmol/L Anion Gap 13 5-15 Blood Urea Nitrogen 54 H 9-23 mg/dL Creatinine 2.02 H 0.550-1.02 mg/dL Glomerular Filtration Rate Calc 26 >90 mL/min BUN/Creatinine Ratio 26.7 H 10.0-20.0 Serum Glucose 74 74-106 mg/dL Calcium Level 9.1 8.7-10.4 mg/dL Patient alert. She is on oxygen. History of COPD. Kidney function elevated. Potassium elevated. Hemoglobin is low. Vitals stable. WBC elevated. Possible sepsis. Possible pneumonia. Establish intravenous access. Was given hyperkalemia treatment. Blood transfusion. Sepsis protocol. Explained to the patient. Continue monitoring. X-Ray, Labs, Meds, VS Comment [place] [address] Ph: [phone] DIAGNOSTIC IMAGING Diagnostic Imaging Report : [id number] Signed PATIENT: PIPE DALEY ACCT: [id number] UNIT: [id number] : 1950 LOC: ER ROOM / BED: / AGE / SEX: 75 / F ADM STATUS: REG ER SERVICE 1252 ORDERING PHYSICIAN: SHANEKA MITCHELL MD PROCEDURE(s): CXRP - CHEST PORTABLE REASON: sob ORDER NUMBER(s): [id number], ACCESSION NUMBER(s): [id number] CLINICAL HISTORY: sob TECHNIQUE: Single view of the chest was obtained. COMPARISON: XY CHEST PORTABLE on DOS: 11/20/23, XY CHEST XRAY 1 VIEW on DOS: 11/13/23, XY CHEST XRAY 1 VIEW on DOS: 11/11/23, XY CHEST PORTABLE on DOS: 11/10/23, XR CHEST 1 VIEW on DOS: 11/03/23 FINDINGS: The heart size is mildly enlarged with borderline pulmonary vascular congestion. There is no dense consolidation. IMPRESSION: Borderline pulmonary vascular congestion. ATED BY: MOE ROJO MD DICTATED DATE/TIME: 02/24/25 1348 SIGNED BY: MOE ROJO MD SIGNED DATE/TIME: 02/24/25 1348 CC: Time of 1ST Reevaluation: 13:54 Reevaluation 1ST: Unchanged Patient Education/Counseling: Diagnosis, Treatment Family Education/Counseling: No Family Present SEPSIS Sepsis Screen Date sepsis recognized/suspect: Feb 24, 2025 Time Sepsis recognized/suspect: 1228 Recent Procedure: No On Antibiotic Therapy: No Respiratory Rate >20: No Heart Rate >90: No Temp<36 C (96.8 F) or >38.3 C: No SBP <90 or MAP <65 mmHG: No New Acute Mental Status Change: No Is the patient on CPAP, BIPAP,: No Physician Orders Urinalysis (02/24/25 12:36) Electrocardigram (02/24/25 12:48) Chest Portable (02/24/25 12:52) Sodium Chloride 0.9% (02/24/25 13:00) Packedcells -Active Bleeding (02/24/25 13:37) Type And Screen (02/24/25 13:37) Potassium (02/24/25 18:05) Calcium Gluc 1,000mg/50ml-Ns (02/24/25 14:15) Blood Culture (02/24/25 14:09) Lactic Acid W/ Reflex Order (02/24/25 14:09) Ceftriaxone 1gm/50ml (Rocephin) (02/24/25 14:15) Azithromycin 500mg/250ml (Zithromax 500m (02/24/25 14:15) Vital Signs Date Time Temp Pulse Resp B/P (MAP) Pulse Ox O2 Delivery O2 Flow Rate FiO2 02/24/25 12:58 80 02/24/25 12:45 80 02/24/25 12:27 98.0 79 24 93/42 90 98.0 Laboratory Tests Test 02/24/25 13:01 White Blood Count 16.7 10^3/uL (4.4-10.8) H Departure 1 Departure Time of Disposition: 14:08 Impression: Primary Impression: Acute renal failure Qualified Codes: N17.0 - Acute kidney failure with tubular necrosis Additional Impressions: COPD exacerbation Sepsis, unspecified organism Qualified Codes: A41.9 - Sepsis, unspecified organism Severe anemia Hyperkalemia Disposition: ADMITTED INPATIENT Admit to: Med Surg Condition: Guarded Critical Care Note Critical Care Time?: Yes (90 min-critical care time only) Stability Stability form required: No Heart Score Heart Score: Heart Score Response (Comments) Value History N/A 0 EKG N/A 0 Age N/A 0 Risk Factors N/A 0 Troponin N/A 0 Total 0 I personally scribed for SHANEKA MITCHELL MD ([email or web address]) on 02/24/25 at 12:58. Electronically submitted by Gilbert Dick ([email or web address]). I personally scribed for HSANEKA MITCHELL MD ([email or web address]) on 02/24/25 at 14:17. Electronically submitted by Gilbert Dick ([email or web address]). SHANEKA MITCHELL MD Feb 24, 2025 12:58
[2025-02-24 13:22] LABS: Hematocrit 23.8 % (36.0-46.0); Mean Corpuscular Hemoglobin 18.8 pg (28.0-32.0); Mean Corpuscular Volume 65.6 fL (80.0-100.0); Nucleated Red Blood Cells % 0.3 %
[2025-02-24 13:26] LABS: Hemoglobin 6.8 g/dL (12.2-16.2)
[2025-02-24 13:28] LABS: Sodium 141 mmol/L (136-145)
[2025-02-24 13:29] LABS: Anion Gap 13 (5-15)
[2025-02-24 13:30] LABS: Calcium 9.1 mg/dL (8.7-10.4)
[2025-02-24 13:35] LABS: BUN/Creatinine Ratio 26.7 (10.0-20.0); Blood Urea Nitrogen 54 mg/dL (9-23); Carbon Dioxide 16 mmol/L (20-31); Chloride 112 mmol/L (98-107); Glucose 74 mg/dL (74-106)
[2025-02-24] MEDS: LIDOCAINE 1% HCL (LOCAL ANESTH.) INJ 20ML MDV ID ONE (13:35)
[2025-02-24] MEDS: LIDOCAINE 1% HCL (LOCAL ANESTH.) INJ 20ML MDV ONE (13:35)
[2025-02-24 13:38] LABS: Potassium 6.6 mmol/L (3.5-5.1)
--- NOTE | 2025-02-24 13:50 | DVH ---
CLINICAL HISTORY: sob TECHNIQUE: Single view of the chest was obtained. COMPARISON: XY CHEST PORTABLE on DOS: 11/20/23, XY CHEST XRAY 1 VIEW on DOS: 11/13/23, XY CHEST XRAY 1 VIEW on DOS: 11/11/23, XY CHEST PORTABLE on DOS: 11/10/23, XR CHEST 1 VIEW on DOS: 11/03/23 FINDINGS: The heart size is mildly enlarged with borderline pulmonary vascular congestion. There is no dense consolidation. IMPRESSION: Borderline pulmonary vascular congestion.
[2025-02-24 13:57] LABS: Anisocytosis Slight
[2025-02-24] MEDS: ALBUTEROL SULF 2.5 MG/0.5ML(0.5%) NEB SOLN NEB ONE (14:50)
--- NOTE | 2025-02-24 15:34 | DVHNC2 ---
Procedure - Indication: Hypotension Vascular Access Central Line Location: Left Femoral Vein Procedure Laborer [place]chard: Dr. Benjamin, resident Attending Physician: Dr. Hogan Present During Procedure?: Yes Consent: Consent was obtained from patient's daughter prior to the procedure. Indications, risks and benefits were discussed prior to the procedure. PROCEDURE SUMMARY: The [facility] Central Line Insertion Practices form was completed by me during and immediately following the procedure. A time out was performed. My hands were washed immediately prior to the procedure. I wore a surgical cap, mask with pro tective eyewear, full gown and sterile gloves throughout the procedure. The Left groin was prepped using chlorhexidine scrub and draped in sterile fashion using a three quarter sheet drape and sterile towels. Skin preparation was allowed to dry prior to skin puncture. Anatomic landmarks were identified. Anesthesia was achieved over the vein using 1% lidocaine. Using real-time ultrasound, with sterile probe cover and sterile gel, the introducer needle was inserted into the vein under direct ultrasound visualization. Venous blood was withdrawn. The syringe was removed and a guidewire was advanced into the introducer needle. The guidewire was visualized in the appropriate vein by ultrasound. A small incision was made at the skin surface with a scalpel and the introducer needle was exchanged for a dilator over the guidewire. After appropriate dilation was obtained, the dilator was exchanged over the wire for a central venous catheter. The wire was removed and the catheter was sutured in place. A biopatch was plac ed at the insertion site. A sterile op-site was placed over the catheter and biopatch. The patient tolerated the procedure without any hemodynamic compromise. At time of procedure completion, all ports aspirated and flushed properly. ERNESTO BENJAMIN RESIDENT Feb 24, 2025 15:34
[2025-02-24] MEDS: DEXTROSE (50%) 50ML SYRG IV ONE ×2 (15:40→15:56)
[2025-02-24] MEDS: DEXTROSE 10% 1,000 ML IV ONE (15:59)
[2025-02-24] MEDS: SODIUM BICARB 8.4% 50Meq/50ml SYR INJ IV ONE (16:00)
[2025-02-24] MEDS: FUROSEMIDE 20 MG/2 ML VIAL IV ONE (16:03)
--- NOTE | 2025-02-24 16:04 | DVH ---
CHEST RADIOGRAPH Indication: failed central line. Technique: Single frontal view of the chest was obtained. Comparison: XY CHEST PORTABLE on DOS: 02/24/25 Findings: No central line catheter is visualized. Mild pulmonary vascular congestion. No significant pleural effusion. No pneumothorax. Stable cardiomediastinal silhouette. IMPRESSION: No central line catheter is visualized.
[2025-02-24] MEDS: CALCIUM GLUC 1,000mg/50ml-NS 50 ML IV ONE (16:10)
[2025-02-24] MEDS: SODIUM CHLORIDE 0.9% 1,000 ML IV ONE ×2 (16:17→16:35)
[2025-02-24] MEDS ORDERED: VANCOMYCIN PER PHARMACY 0 MG IV SCH (16:30)
[2025-02-24] MEDS: AZITHROMYCIN 500MG/250ML 250 ML IV ONE (16:45)
[2025-02-24] MEDS: InsuLIN REG 1unit/0.01ml Soln (100units/ml) IV ONE (16:51)
[2025-02-24 16:59] LABS: Alanine Aminotransferase 20 U/L (7-40); Albumin 4.4 g/dL (3.2-4.8); Total Protein 7.7 g/dL (5.7-8.2)
[2025-02-24 17:00] LABS: Alkaline Phosphatase 222 U/L (46-116); Bilirubin, Direct < 0.1 mg/dL (<0.3); Bilirubin, Total 0.2 mg/dL (0.2-1.0)
[2025-02-24] MEDS: SODIUM ZIRCONIUM CYCL 10 GM PAK PO ONE (17:19)
--- NOTE | 2025-02-24 17:39 | DVH ---
INDICATION: intermittant bleeding TECHNIQUE: Multiple real-time grayscale transabdominal sonographic images along with color and duplex Doppler of the uterus and ovaries were obtained. COMPARISON: None FINDINGS: The uterus measures uterus has been surgically removed in November 21 2023 cm. The right ovary unremarkable The left ovary unremarkable Both ovaries were not measured. Subsequent color and duplex Doppler interrogation of the ovaries demonstrated symmetric vascular flow to both ovaries, though this does not exclude the possibility of torsion due to the dual blood supply. IMPRESSION: 1. Grossly unremarkable pelvic ultrasound. 2. Uterus surgically removed.
--- NOTE | 2025-02-24 17:41 | DVH ---
CT abdomen and pelvis without contrast INDICATION: lower abd pain, sepsis, h/o colovesical fistula Comparison: CT abdomen and pelvis done 11/20/2023 TECHNIQUE: Serial axial images were performed through the abdomen and pelvis and then reformatted in the sagittal and coronal plane. All CT scans at this medical facility are performed using dose modulation techniques as appropriate to a performed exam including the following: Automated exposure control was utilized; adjustment of the MA and/or KvP according to patient size; and use of iterative reconstruction technique. FINDINGS: Lung bases clear. Heart size enlarged. Retrocardiac hiatal hernia. Liver and spleen are normal in size without focal mass. No renal masses, stones or hydronephrosis. No masses or enlargement of the adrenal glands or pancreas. No biliary dilatation. No gallstones. No distention of bowel loops to suggest mechanical obstruction of bowel. . Significant fecal loading in the colon. Appendix not seen. Atherosclerotic calcification in the aorta and iliac arteries.. No free fluid. Within the pelvis, bladder is smooth walled without stones. Small sigmoid diverticuli without signs of diverticulitisThere is air in the urinary bladder No abnormal masses or fluid collections. IMPRESSION: 1. 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 Retrocardiac hiatal hernia as on previous exam. 3. Recommend study be repeated with IV and oral contrast Computed Tomographic Radiation Dosimetry Report: Total CTDI vol = 16 mGy Total DLP = 837 mGy-cm Low dose protocols were performed.
[2025-02-24] MEDS ORDERED: ACETYLCYSTEINE 20%(200MG/ML) SOL 4ML NEB SCH (18:00)
[2025-02-24 18:56] LABS: COVID19 ANTIGEN SOFIA FIA NEGATIVE (NEGATIVE)
[2025-02-24] MEDS: IPRATROPIUM BROM 0.5 MG/2.5ML INH SOL NEB SCH (19:10)
[2025-02-24] MEDS: LEVALBUTEROL HCL 1.25 MG/3 ML NEB NEB SCH (19:10)
--- NOTE | 2025-02-24 19:21 | DVHHPRES ---
History of Present Illness Resident Creating Document: SANDRA MACEDO RESIDENT History of Present Illness Patient is a 75-year-old female with a medical history of CKD, CVA X 2, COPD on home oxygen as needed, CHF, C diff colitis was brought to the ED via EMS from a daycare where she was reported to be throwing up. For a better history patient's daughter Cedric was called who reported that the patient was apparently well about 2-3 weeks ago when she started having cough initially dry and then associated with the yellowish sputum but denied any fever or chills. Patient was weak and later started reported that she has decreased appetite and when she eats she had discomfort on swallowing in her chest. Patient also reported of having stomach pain diffuse more in the epigastrium and in the lower abdomen. Daughter reported the last bowel movement patient had was on Saturday last week. Past medical history: As per HPI Surgical history: Denies Social history: Patient lives with the her daughter, attends daycare for about a year now, no smoking alcohol or drug use Home medications: Aspirin 81, divalproex 750 b.i.d., donepezil 10 mg, Lasix 20 mg b.i.d., losartan 25 mg daily, metoprolol tartrate 25 b.i.d., triamterene + hydrochlorothiazide Review of Systems Review of Systems Patient seen and examined at the bedside Mild respiratory distress Reports of diffuse abdominal pain Denies nausea, vomiting Allergies: Coded Allergies: No Known Drug Allergy (Verified Allergy, Unknown, 11/10/23) Medications Current Medications Medications Dose Ordered Sig/Luis Route Start Time Stop Time Status Last Admin Dose Admin Vancomycin HCl 0 ml @ 0 mls/hr PER PHARMACY IV 02/24/25 16:30 Ceftriaxone Sodium 50 ml @ 100 mls/hr DAILY@09 IV 02/25/25 09:00 Levalbuterol HCl 0.625 mg Q6HR NEB 02/24/25 18:00 Ipratropium [place] 0.5 mg Q6HR NEB 02/24/25 18:00 Acetylcysteine 200 mg Q6HR NEB 02/24/25 18:00 Divalproex Sodium 750 mg BID PO 02/24/25 22:00 Metronidazole 100 ml @ 100 mls/hr Q8HR IV 02/24/25 22:00 Diagnostic Test (Pha) 1 strip IQ4HR 02/24/25 20:00 Insulin Human Regular IQ4HR SC 02/24/25 20:00 Dextrose 50 ml UD PRN IV 02/24/25 18:15 Exam Vital Signs Vital Signs Date Time Temp Pulse Resp B/P (MAP) Pulse Ox O2 Delivery O2 Flow Rate FiO2 02/24/25 16:03 141/49 02/24/25 15:00 89 19 90 02/24/25 14:55 Nasal Cannula* 4 36 02/24/25 13:00 98.8 98.8 Exam Skin - Patients skin is warm and dry. HEENT - normocephalic, atraumatic, moist mucous membranes. Neck - full ROM, no LAD, no JVD Pulmonary - B/L decreased breath sounds, no wheezing or rales cardiovascular - regular S1,S2 heard, no murmurs could be appreciated GI - soft, obese abdomen with tenderness to palpation diffusely most in the suprapubic region. no hepatospleenomegaly. Bowel sounds normoactive Neurological - Patient is A/O X 3 . History of CVA with left-sided weakness, right side upper and lower extremity strength 4/5, Labs/Xrays Labs Test 02/24/25 18:18 02/24/25 18:05 02/24/25 16:26 02/24/25 15:47 Range/Units POC Glucose 255 H 70-106 mg/dl Lactic Acid Level 1.0 0.4-2.0 mmol/L Test 02/24/25 13:01 Range/Units White Blood Count 16.7 H 4.4-10.8 10^3/uL Red Blood Count 3.63 L 4.0-5.20 10^6/uL Hemoglobin 6.8 *L 12.2-16.2 g/dL Hematocrit 23.8 L 36.0-46.0 % Mean Corpuscular Volume 65.6 L 80.0-100.0 fL Mean Corpuscular Hemoglobin 18.8 L 28.0-32.0 pg Mean Corpuscular Hemoglobin Concent 28.7 L 32.0-36.0 g/dL Red Cell Distribution Width 22.5 H 11.8-14.3 % Platelet Count 423 140-450 10^3/uL Mean Platelet Volume 8.5 6.9-10.8 fL Neutrophils (%) (Auto) 87.0 H 37.0-80.0 % Lymphocytes (%) (Auto) 4.9 L 10.0-50.0 % Monocytes (%) (Auto) 6.1 0.0-12.0 % Eosinophils (%) (Auto) 1.0 0.0-7.0 % Basophils (%) (Auto) 1.0 0.0-2.0 % Neutrophils # (Auto) 14.6 H 1.6-8.6 10 ^3/uL Lymphocytes # (Auto) 0.8 0.4-5.4 10 ^3/uL Monocytes # (Auto) 1.0 0-1.3 10 ^3/uL Eosinophils # (Auto) 0.2 0-0.8 10 ^3/uL Basophils # (Auto) 0.2 0-0.2 10 ^3/uL Nucleated Red Blood Cells 0.3 % Platelet Estimate Adequate Large Platelets Few Hypochromasia (manual) Slight Anisocytosis (manual) Slight Microcytosis Slight Schistocytes Few Sodium Level 141 136-145 mmol/L Chloride Level 112 H 98-107 mmol/L Carbon Dioxide Level 16 L 20-31 mmol/L Anion Gap 13 5-15 Blood Urea Nitrogen 54 H 9-23 mg/dL Creatinine 2.02 H 0.550-1.02 mg/dL Glomerular Filtration Rate Calc 26 >90 mL/min BUN/Creatinine Ratio 26.7 H 10.0-20.0 Serum Glucose 74 74-106 mg/dL Calcium Level 9.1 8.7-10.4 mg/dL Total Bilirubin 0.2 0.2-1.0 mg/dL Direct Bilirubin < 0.1 <0.3 mg/dL Aspartate Amino Transferase (AST) 24 13-40 U/L Alanine Aminotransferase (ALT) 20 7-40 U/L Alkaline Phosphatase 222 H 46-116 U/L Total Protein 7.7 5.7-8.2 g/dL Albumin 4.4 3.2-4.8 g/dL SEPSIS Sepsis Screen Date sepsis recognized/suspect: Feb 24, 2025 Time Sepsis recognized/suspect: 1300 Recent Procedure: No On Antibiotic Therapy: No Respiratory Rate >20: Yes Heart Rate >90: No Temp<36 C (96.8 F) or >38.3 C: No SBP <90 or MAP <65 mmHG: No New Acute Mental Status Change: No Is the patient on CPAP, BIPAP,: No Physician Orders Urinalysis (02/24/25 12:36) Electrocardigram (02/24/25 12:48) Chest Portable (02/24/25 12:52) Sodium Chloride 0.9% (02/24/25 13:00) Packedcells -Active Bleeding (02/24/25 13:37) Potassium (02/24/25 18:05) Blood Culture (02/24/25 14:09) Chest Xray 1 View (02/24/25 15:27) Dextrose 10% (02/24/25 15:45) Admit (02/24/25 16:24) Oxygen By Nasal Cannula (02/24/25 16:24) Stat Ekg For Chest Pain (02/24/25 16:24) Notify Md Of Changes From Base (02/24/25 16:24) Job Training Specialist For 24 Hours (02/24/25 16:24) Emergency Dysrhythmia Protocol (02/24/25 16:24) Electrocardigram (02/24/25 16:24) Stool Occult Blood (02/24/25 16:24) Pelvic (02/24/25 16:24) Ct Ab Pel Wo Con-No Oral Or Iv (02/24/25 16:24) Vancomycin Per Pharmacy (02/24/25 16:30) Ceftriaxone 1gm/50ml (Rocephin) (02/25/25 09:00) Hemoglobin & Hematocrit (02/24/25 19:00) Basic Metabolic Panel (02/24/25 19:00) Ceftriaxone 1gm/50ml (Rocephin) (02/25/25 09:00) Rapid Influenza A&B (02/24/25 16:24) Covid19 Antigen Jennifer (02/24/25 ) Abg W/ Co-Ox (02/24/25 16:46) Levalbuterol Hcl (Xopenex Medneb) (02/24/25 18:00) Ipratropium Medneb (Atrovent Medneb) (02/24/25 18:00) Acetylcysteine Inhalation 20% (Mucomyst (02/24/25 18:00) Divalproex Dr Tablet (Depakote "Dr" Tabl (02/24/25 22:00) Creatinine (02/25/25 05:00) Vancomycin,Random (02/25/25 05:00) * Surgical Consult (02/24/25 ) Metronidazole 500mg/100ml (Flagyl 500mg/ (02/24/25 22:00) Glucose Blood (Accu-Chek Comfort Curve T (02/24/25 20:00) Insulin R (Human) (Insulin R) (02/24/25 20:00) Dextrose 50% Syringe (02/24/25 18:15) PTPTT (02/24/25 18:03) Basic Metabolic Panel (02/25/25 04:00) Complete Blood Count (02/25/25 04:00) Vital Signs Date Time Temp Pulse Resp B/P (MAP) Pulse Ox O2 Delivery O2 Flow Rate FiO2 02/24/25 16:03 141/49 02/24/25 15:00 89 19 94/53 (67) 90 02/24/25 14:55 24 92 Nasal Cannula* 4 36 02/24/25 13:00 77 21 95 Nasal Cannula* 4 36 02/24/25 13:00 98.8 77 21 120/50 (73) 95 98.8 02/24/25 12:58 80 02/24/25 12:45 80 02/24/25 12:27 98.0 79 24 93/42 90 98.0 Laboratory Tests Test 02/24/25 13:01 02/24/25 15:47 White Blood Count 16.7 10^3/uL (4.4-10.8) H Lactic Acid Level 1.0 mmol/L (0.4-2.0) Medications Medications Dose Ordered Sig/Luis Route Start Time Stop Time Status Last Admin Dose Admin Albuterol 20 mg ONCE ONCE NEB 02/24/25 14:15 02/24/25 14:16 DC 02/24/25 14:50 20 MG Azithromycin 250 ml @ 125 mls/hr ONCE ONCE IV 02/24/25 14:15 02/24/25 16:14 DC 02/24/25 16:45 125 MLS/HR Calcium Gluconate/ Sodium Chloride 50 ml @ 120 mls/hr ONCE ONCE IV 02/24/25 14:15 02/24/25 14:39 DC 02/24/25 16:10 120 MLS/HR Dextrose 50 ml ONCE ONCE IV 02/24/25 14:15 02/24/25 14:16 DC 02/24/25 15:56 50 ML Dextrose 50 ml ONCE ONCE IV 02/24/25 15:45 02/24/25 15:47 DC 02/24/25 15:40 50 ML Dextrose 1,000 ml @ 75 mls/hr [id number] ONCE IV 02/24/25 15:45 02/25/25 05:04 02/24/25 15:59 75 MLS/HR Furosemide 20 mg ONCE ONCE IV 02/24/25 14:15 02/24/25 14:16 DC 02/24/25 16:03 20 MG Insulin Human Regular 10 units ONCE ONCE IV 02/24/25 14:15 02/24/25 14:16 DC 02/24/25 16:51 10 UNITS Lidocaine HCl 20 ml ONCE ONCE ID 02/24/25 13:35 02/24/25 15:37 DC 02/24/25 13:35 20 ML Sodium Bicarbonate 50 ml ONCE ONCE IV 02/24/25 14:15 02/24/25 14:16 DC 02/24/25 16:00 50 ML Sodium Chloride 1,000 ml @ 1,000 mls/hr Q1H ONCE IV 02/24/25 13:00 02/24/25 13:59 DC 02/24/25 16:17 1,000 MLS/HR Zirconium Oxide 10 gm ONCE ONCE PO 02/24/25 14:15 02/24/25 14:16 DC 02/24/25 17:19 10 GM Assessment/Plan Assessment/Plan Sepsis likely due to UTI Probable Colovesical fistula - CT abdomen pelvis showed air within the urinary bladder raising question for a colovesical fistula and recommended study to be done with IV and oral contrast. Since the patient is likely in BRAD, after IV fluids contrast CT should be done tomorrow - IV fluids - IV antibiotics vancomycin, ceftriaxone and metronidazole - blood culture, urine culture pending - surgical consult - clear liquid diet Severe Constipation Hiatal hernia GERD - IV Protonix - p.o. Carafate - MiraLax and senna Acute on chronic hypoxic respiratory failure COPD ?Anemic hypoxia - duo nebs q.6 hours - ABG pending - keep saturation between 88-92% Congestive heart failure, no exacerbation Probable pulmonary hypertension Hypertensive heart disease - echo from October 2023 showed LVEF 55% to with the RVSP 38 mmHg - repeat echo - hold any diuretics, antihypertensives as patient is septic Microcytic hypochromic anemia Probable Anemia of chronic disease Rule out GI bleed - 1 unit PRBC - monitor hemoglobin and keep above 7 - stool occult blood pending BRAD on CKD likely prerenal due to VMN Hyperkalemia - hyperkalemia resolved - IV fluids - monitor electrolytes and kidney function No DVT prophylaxis since the patient has anemia Goals of care discussed with the patient's daughter Cedric who is her POA Full code Time spent: 41 minutes Plan discussed with Dr. Rush Plan discussed with: Patient, Daughter My Orders Orders - SANDRA MACEDO RESIDENT Procedure Category Date Status Time Admit ADMIT 02/24/25 Transmitted 16:24 Oxygen By Nasal RT 02/24/25 Transmitted Cannula 16:24 Stat Ekg For Chest SHERIF 02/24/25 In Process Pain 16:24 Notify Of Changes SHERIF 02/24/25 In Process From Base 16:24 Job Training Specialist For SHERIF 02/24/25 In Process 24 Hours 16:24 Emergency Dysrhythmia SHERIF 02/24/25 In Process Protocol 16:24 Electrocardigram EKG 02/24/25 Logged 16:24 Stool Occult Blood LAB 02/24/25 Logged 16:24 Pelvic US 02/24/25 Resulted 16:24 Ct Ab Pel Wo Con-No CT 02/24/25 Resulted Oral Or Iv 16:24 Vancomycin Per PHA 02/24/25 In Process Pharmacy 16:30 Ceftriaxone 1gm/50ml PHA 02/25/25 In Process (Rocephin) 09:00 Hemoglobin & LAB 02/24/25 Logged Hematocrit 19:00 Basic Metabolic Panel LAB 02/24/25 Logged 19:00 Ceftriaxone 1gm/50ml PHA 02/25/25 In Process (Rocephin) 09:00 Rapid Influenza A&B LAB 02/24/25 In Process 16:24 Covid19 Antigen Jennifer LAB 02/24/25 In Process Abg W/ Co-Ox RT 02/24/25 Logged 16:46 Levalbuterol Hcl PHA 02/24/25 In Process (Xopenex Medneb) 18:00 Ipratropium Medneb PHA 02/24/25 In Process (Atrovent Medneb) 18:00 Acetylcysteine PHA 02/24/25 In Process Inhalation 20% 18:[address] Tablet PHA 02/24/25 In Process (Depakote "Dr" Tabl 22:00 Creatinine LAB 02/25/25 Verified 05:00 Vancomycin,Random LAB 02/25/25 Verified 05:00 * Surgical Consult CONS 02/24/25 Transmitted Metronidazole PHA 02/24/25 In Process 500mg/100ml (Flagyl 22:00 Glucose Blood PHA 02/24/25 In Process (Accu-Chek Comfort 20:00 Insulin R (Human) PHA 02/24/25 In Process (Insulin R) 20:00 Dextrose 50% Syringe PHA 02/24/25 In Process 18:15 PTPTT LAB 02/24/25 Logged 18:03 Basic Metabolic Panel LAB 02/25/25 Verified 04:00 Complete Blood Count LAB 02/25/25 Verified 04:00 Date of Service: Feb 24, 2025 Billing Provider: LATIA RUSH MD Common Visit Codes: [id number] INP/OBS CARE (HIGH) Secondary Visit Codes: [id number] CARE PLAN 30 MINUTES SANDRA MACEDO RESIDENT Feb 24, 2025 19:21
[2025-02-24] MEDS: ACCU-CHEK COMFORT CURVE STRIP VI SCH (20:00)
[2025-02-24] MEDS: InsuLIN REG 1unit/0.01ml Soln (100units/ml) SC SCH (20:00)
[2025-02-24] MEDS: DEXTROSE (50%) 50ML SYRG IV PRN (20:25)
[2025-02-24] MEDS: PANTOPRAZOLE 40 MG/10 ML VIAL INJ IV ONE (21:23)
[2025-02-24] MEDS: POLYETHYLENE GLYCOL 17 GM PWDR PO ONE (22:51)
[2025-02-24] MEDS: SENNA 8.6 MG TAB PO SCH (23:00)
[2025-02-24] MEDS: SODIUM CHLORIDE 0.9% 500 ML IV ONE (23:44)
[2025-02-25] VITALS (16 sets, daily range): BP systolic 100–129; BP diastolic 43–67; PULSE 61–120; RESP 14–22; TEMP 97.6–98.6; O2SAT 87–100
[2025-02-25] MEDS: HYDROcodone-ACET 5/325MG TAB PO ONE (01:52)
[2025-02-25] MEDS: methylPREDNISolone SOD SUCC 40 MG/ML VL IV ONE (01:53)
[2025-02-25] MEDS: VANCOMYCIN 750MG KIT 100 ML IV ONE (01:58)
[2025-02-25 02:15] LABS: Hematocrit 20.5 % (36.0-46.0)
[2025-02-25 02:23] LABS: INR 1.0 (0.9-1.15); Partial Thromboplastin Time 28.0 SEC (24.5-34.5); Prothrombin Time 10.6 sec (9.3-11.8)
[2025-02-25 02:24] LABS: Potassium 4.6 mmol/L (3.5-5.1); Sodium 142 mmol/L (136-145)
[2025-02-25 02:25] LABS: Anion Gap 10 (5-15)
[2025-02-25 02:31] LABS: BUN/Creatinine Ratio 24.9 (10.0-20.0)
[2025-02-25 02:35] LABS: Hemoglobin 6.3 g/dL (12.2-16.2)
[2025-02-25 02:36] LABS: Blood Urea Nitrogen 46 mg/dL (9-23); Calcium 7.6 mg/dL (8.7-10.4); Carbon Dioxide 20 mmol/L (20-31); Chloride 112 mmol/L (98-107); Glucose 116 mg/dL (74-106)
[2025-02-25] MEDS: LIDOCAINE 2% TOPICAL JELLY 5 ML URJT TOP ONE (03:30)
[2025-02-25] MEDS: LIDOCAINE HCL 2% TOP JELLY 5ML TOP ONE (03:30)
[2025-02-25 09:05] LABS: Hemoglobin 7.1 g/dL (12.2-16.2)
[2025-02-25 09:08] LABS: Hematocrit 22.9 % (36.0-46.0); Mean Corpuscular Hemoglobin 21.8 pg (28.0-32.0); Mean Corpuscular Volume 70.2 fL (80.0-100.0)
[2025-02-25 09:11] LABS: Potassium 5.0 mmol/L (3.5-5.1); Sodium 142 mmol/L (136-145)
[2025-02-25 09:12] LABS: Anion Gap 12 (5-15)
--- NOTE | 2025-02-25 09:13 | DVHINCON2 ---
Date of service: Feb 25, 2025 History of Present Illness 72-year-old female with a history of CKD, COPD, CV a x2 and CHF admitted from her daycare secondary to coughing and nausea. However patient currently denies any nausea or vomiting and is able to tolerate p.o.. On admission patient had a CT of the abdomen and pelvis which showed some air in the bladder current standard for possible colovesical fistula therefore surgical consultation was requested. Patient denies any abdominal pain. Patient denies any pneumaturia however she does have history of urinary tract infections in the past. Past Medical History CHF. History of UTIs. CKD. CVA. COPD on home oxygen. Past Surgical History No recent abdominal surgeries Family History: FH: heart disease G8 MOTHER Grandmother Family History Noncontributory Social History No alcohol, tobacco, IV drug use Allergies: Coded Allergies: No Known Drug Allergy (Verified Allergy, Unknown, 11/10/23) Home Meds Active Scripts Ibuprofen Micronized (Ibuprofen) 600 Mg Tab, 600 MG PO Q6HPRN PRN for 5 Days, #20 TAB Prov:MCKINLEY BRYAN SENIOR UI DESIGNER 10/11/24 Reported Medications Zolpidem Tartrate (Zolpidem Tartrate) 10 Mg Tab, 1 TAB PO QPM for 30 Days, #30 11/14/23 Hydrocodone-Acetaminophen (Hydrocodone Bitartrate/AC 5-325 mg) 1 Tab Tab, 1 TAB PO Q6HR PRN for MODERATE TO SEVERE PAIN for 15 Days, #60 11/14/23 Divalproex Sodium (Divalproex Sodium Dr) 500 Mg Tab, 750 MG PO BID for MOOD DISORDERS for 31 Days, #186 11/14/23 Furosemide (Furosemide) 20 Mg Tab, 1 TAB PO BID for 31 Days, #62 11/14/23 Amlodipine Besylate (Amlodipine Besylate) 10 Mg Tab, 1 TAB PO DAILY for 31 Days, #31 11/14/23 Albuterol Sulfate (Albuterol Sulfate) 0.083 % Neb, 1 VIAL NEB Q6HR 08/14/23 Ferrous Sulfate (Ferosul) 325 Mg Tab, 1 TAB PO TID 08/14/23 Donepezil Hydrochloride (DONEPEZIL HCL) 10 Mg Tab, 1 TAB PO DAILY 08/14/23 Aspirin (Aspirin Low Dose) 81 Mg Chw, 1 TAB PO DAILY, #30 TAB 3 Refills 08/14/23 Atorvastatin Calcium (Lipitor) 40 Mg Tab, 1 TAB PO DAILY, #30 TAB 5 Refills 08/14/23 Losartan Potassium (Losartan Potassium) 25 Mg Tab, 1 TAB PO DAILY for 30 Days, MG 08/14/23 Metoprolol Tartrate (Lopressor) 25 Mg Tb, 1 TAB PO BID, TAB 0 Refills 08/14/23 Triamterene & Hydrochlorothiaz (Maxzide) 1 Tab Tab, 1 TAB PO DAILY, #30 TAB 5 Refills 08/14/23 Current Medications Current Medications Medications (Trade) Dose Ordered Sig/Luis Route PRN Reason Start Time Stop Time Status Last Admin Vancomycin HCl 0 ml @ 0 mls/hr PER PHARMACY IV 02/24/25 16:30 Ceftriaxone Sodium 50 ml @ 100 mls/hr DAILY@ IV 02/25/25 09:00 02/24/25 16:41 DC Ceftriaxone Sodium 50 ml @ 100 mls/hr DAILY@ IV 02/25/25 09:00 Levalbuterol HCl (Xopenex Medneb) 0.625 mg Q6HR NEB 02/24/25 18:00 02/25/25 06:42 Ipratropium [place] (Atrovent Medneb) 0.5 mg Q6HR NEB 02/24/25 18:00 02/25/25 06:42 Acetylcysteine (Mucomyst Inhalation 20%) 200 mg Q6HR NEB 02/24/25 18:00 02/24/25 19:09 DC Divalproex Sodium (Depakote "Dr" Tablet) 750 mg BID PO 02/24/25 22:00 02/24/25 22:51 Metronidazole 100 ml @ 100 mls/hr Q8HR IV 02/24/25 22:00 02/25/25 06:47 Diagnostic Test (Pha) (Accu-Chek Comfort Curve T) 1 strip IQ4HR 02/24/25 20:00 02/25/25 04:23 Insulin Human Regular (InsuLIN R) IQ4HR SC 02/24/25 20:00 Dextrose 50 ml UD PRN IV Blood Sugar LESS THAN 60 02/24/25 18:15 02/24/25 20:25 Pantoprazole Sodium (Protonix) 40 mg DAILY IV 02/25/25 10:00 Polyethylene Glycol (Miralax 17GM Powder) 17 gm DAILY PO 02/25/25 10:00 Sennosides (Senokot Tablet) 17.2 mg HS PO 02/24/25 22:00 Methylprednisolone Sodium Succinate (Solu Medrol) 40 mg BID IV 02/25/25 10:00 Vital Signs Vital Signs Date Time Temp Pulse Resp B/P (MAP) Pulse Ox O2 Delivery O2 Flow Rate FiO2 02/25/25 05:00 97.9 64 15 116/54 (74) 92 97.9 02/25/25 00:16 Nasal Cannula* 6 44 Physical Exam GEN: Elderly female in no acute distress. Alert. HEENT: Normocephalic atraumatic. Moist mucous membranes. Anicteric sclerae. CV: RRR Respiratory: Coarse breath sounds ABD: Obese abdomen. Soft. Nontender nondistended. CT of the abdomen and pelvis: Air seen within the urinary bladder adjacent to the sigmoid diverticula raising question of a possible colovesical fistula. Labs/Diagnostic Data Labs Test 02/25/25 08:30 02/25/25 08:29 02/25/25 03:57 02/25/25 01:29 Range/Units POC Glucose 177 H 70-106 mg/dl Stool Occult Blood Negative Negative Stool Occult Blood Sample #3 Negative Prothrombin Time 10.6 9.3-11.8 sec Prothrombin Time INR 1.00 0.9-1.15 Activated Partial Thromboplast Time 28.0 24.5-34.5 SEC Test 02/24/25 18:18 02/24/25 15:47 02/24/25 13:01 Range/Units Influenza Type A Antigen Negative Negative Influenza Type B Antigen Negative Negative SARS-CoV-2 Antigen (Rapid) Negative NEGATIVE Lactic Acid Level 1.0 0.4-2.0 mmol/L Eosinophils (%) (Auto) 1.0 0.0-7.0 % Eosinophils # (Auto) 0.2 0-0.8 10 ^3/uL Basophils # (Auto) 0.2 0-0.2 10 ^3/uL Nucleated Red Blood Cells 0.3 % Platelet Estimate Adequate Large Platelets Few Hypochromasia (manual) Slight Anisocytosis (manual) Slight Microcytosis Slight Schistocytes Few Reticulocyte Count (auto) 3.46 H 0.5-1.5 % Total Bilirubin 0.2 0.2-1.0 mg/dL Direct Bilirubin < 0.1 <0.3 mg/dL Aspartate Amino Transferase (AST) 24 13-40 U/L Alanine Aminotransferase (ALT) 20 7-40 U/L Alkaline Phosphatase 222 H 46-116 U/L Lactate Dehydrogenase 277 H 120-246 U/L Total Protein 7.7 5.7-8.2 g/dL Albumin 4.4 3.2-4.8 g/dL Assessment 1. Possible colovesical fistula Plan/Recommendation 1. Cystogram to assess for possible fistula. Also recommend a urology consultation for possible cystoscopy if the cystogram is equivocal Plan discussed with: Patient, Daughter AMANDAABHILASH MD Feb 25, 2025 09:13
[2025-02-25 09:18] LABS: BUN/Creatinine Ratio 23.3 (10.0-20.0)
[2025-02-25 09:27] LABS: Urine Protein, UAD Negative (Negative)
[2025-02-25 09:31] LABS: Blood Urea Nitrogen 45 mg/dL (9-23); Calcium 8.3 mg/dL (8.7-10.4); Carbon Dioxide 19 mmol/L (20-31); Chloride 111 mmol/L (98-107); Glucose 185 mg/dL (74-106)
[2025-02-25 09:37] LABS: Anisocytosis Moderate; Polychromasia Slight; Tear Drop Cells FEW; Total Cells Counted 100.0 (100)
[2025-02-25] MEDS: methylPREDNISolone SOD SUCC 40 MG/ML VL IV SCH (09:50)
[2025-02-25] MEDS: PANTOPRAZOLE 40 MG/10 ML VIAL INJ IV SCH (09:50)
[2025-02-25] MEDS: POLYETHYLENE GLYCOL 17 GM PWDR PO SCH (09:50)
--- NOTE | 2025-02-25 11:37 | MEDREC ---
[facility] Intervention Section I [facility] Intervention: Review courses of therapy (GIVEN POSSIBLE COLOVESICAL FISTULA SUGGEST COVERING FOR ANAEROBES) DELVIN MONTENEGRO PHARMACIST Feb 25, 2025 11:37
[2025-02-25] MEDS: SODIUM CHLORIDE 0.9% 500 ML IV ONE (11:41)
[2025-02-25] MEDS: VANCOMYCIN 500mg/100mL 100 ML IV ONE (12:49)
--- NOTE | 2025-02-25 14:00 | DVHSR ---
APPROVED REPORT EXAM: Two-dimensional and M-mode echocardiogram with Doppler and color Doppler. Blood Pressure: 116/54 mmHg INDICATION SOB, GENIE RISK FACTORS Height: 5'2, Weight: 200 DIMENSIONS LVDd 3.6 (3.8-5.7cm) LA (2D) 5.1 (1.9-4.0cm) Aortic Root 2.3 (2.0-3.7cm) LVDs 2.4 (2.5-4.0cm) LA (MM) (1.9-4.0cm) Aortic Cusp Exc 1.7 (1.5-2.0cm) EF (%) 62.0 (55-70%) Rt. Atrium (1.9-4.0cm) Asc. Aorta 2.9 cm IVSd 2.3 (0.7-1.1cm) RV (D) (1.8-2.4cm) PWd 1.3 (0.7-1.1cm) Mitral Valve Mitral Mitral Stenosis E wave 0.85m/s MV Mean GR. mmHg A wave 1.62m/s MV Peak GR. 118mmHg E/A ratio 0.5 2D MVA cm2 DECEL Time 9ms PRESS 1/2 Time ms Aortic Valve Aortic Valve Aortic Stenosis LVOT Diameter 1.9 (1.8-2.4cm) Doppler SKY cm2 Pulmonic Valve V2 1.14m/s Tricuspid Valve TR Velocity 3.08m/s RVSP 38mmHg Other Information Technically limited study due to body habitus, difficulty breathing, coughing and patient unable to change positions. Unable to obtain some apical windows due to patient position as well. Conclusion lvef 65% severe septal hypertrophy rv not well seen atria not well seen limitd images
[2025-02-25] MEDS: PIPERACILLIN-TAZOB 3.375GM 100 ML IV SCH (14:53)
[2025-02-25] MEDS ORDERED: ALBUTEROL SULF 2.5 MG/0.5ML(0.5%) NEB SOLN NEB PRN (15:30)
[2025-02-25] MEDS ORDERED: IPRATROPIUM BROM 0.5 MG/2.5ML INH SOL NEB PRN (15:30)
--- NOTE | 2025-02-25 18:03 | DVHPNRES ---
Progress Note Date Seen: Feb 25, 2025 Resident Creating Document: SHAMAR ELLISON RESIDENT Medical Necessity Reason Pt with a Central, PICC or Fol: Yes The following are medically ne: Central Line, Lanza Catheter Subjective Review of Systems Rafia Gambino is a 75-year old female past medical history of CKD was on hemodialysis for 1 month, CVA x2, COPD on home oxygen as needed, HFpEF, C diff colitis who was brought to the ED from her daycare after she was reported to be vomiting. History was elicited from the patient and her daughter Cedric. They mentioned that the patient started having cough while eating since 2-3 weeks, and had episodes of vomiting on and off. The patient also reported that she has had decreased appetite since the last 1-2 months. He also reported having abdominal pain all over, rated as 6/10 in intensity, more in the epigastric area. CT abdomen/pelvis revealed a colovesical fistula for which surgical consult was placed. Surgeon recommended cystogram and evaluation by Urology for possible cystoscopy if cystogram is equivocal. Past medical history: CKD, CVA x2, COPD on home oxygen as needed, HFpEF, C diff colitis Past surgical history: Denies Social & Personal history: Lives at home with family, 40 pack-year smoking history, history of heavy alcohol use, history of marijuana use Home medications: Aspirin 81, divalproex 750 b.i.d., donepezil 10 mg, Lasix 20 mg b.i.d., losartan 25 mg daily, metoprolol tartrate 25 b.i.d., triamterene + hydrochlorothiazide Allergies: No known allergy Patient seen and examined at bedside. Patient is alert and oriented to time, place person and responding to all questions. Eyes: No Pain, No Vision change, No Conjunctivae inflammation, No Eyelid inflammation, No Redness ENT: No Ear pain, No Ear discharge, No Nose pain, No Nose discharge, No Nose congestion, No Mouth pain, No Mouth swelling, No Throat pain, No Throat swelling Cardiovascular: No Chest Pain, No Palpitations, No Orthopnea, No Paroxysmal No Dyspnea, No Edema, No Lt Headedness Respiratory: No Cough, No Dry, No Shortness of breath, No SOB with exertion, No Wheezing, No Hemoptysis, No Pleuritic Pain, No Sputum Gastrointestinal: No Nausea, No Vomiting, Abdominal Pain, No Diarrhea, No Constipation, No Melena, No Hematochezia Genitourinary: No Dysuria, No Frequency, No Incontinence, No Hematuria, No Retention Objective vital signs Vital Sign Date Time Temp Pulse Resp B/P (MAP) Pulse Ox O2 Delivery O2 Flow Rate FiO2 02/25/25 16:53 97.8 120 17 129/62 (84) 99 97.8 02/25/25 11:38 Nasal Cannula* 4 36 Total Intake and Output 02/24/25 02/24/25 02/25/25 15:00 23:00 07:00 Intake Total 2125 ml 218 ml Output Total 800 ml Balance 2125 ml -582 ml medications Current Medications Medications Dose Ordered Sig/Luis Route Start Time Stop Time Status Last Admin Dose Admin Vancomycin HCl 0 ml @ 0 mls/hr PER PHARMACY IV 02/24/25 16:30 Levalbuterol HCl 0.625 mg Q6HR NEB 02/24/25 18:00 02/25/25 11:38 0.625 MG Ipratropium [place] 0.5 mg Q6HR NEB 02/24/25 18:00 02/25/25 11:38 0.5 MG Divalproex Sodium 750 mg BID PO 02/24/25 22:00 02/25/25 09:50 750 MG Diagnostic Test (Pha) 1 strip IQ4HR 02/24/25 20:00 02/25/25 16:13 1 STRIP Insulin Human Regular IQ4HR SC 02/24/25 20:00 02/25/25 16:20 3 UNITS Dextrose 50 ml UD PRN IV 02/24/25 18:15 02/24/25 20:25 50 ML Pantoprazole Sodium 40 mg DAILY IV 02/25/25 10:00 02/25/25 09:50 40 MG Polyethylene Glycol 17 gm DAILY PO 02/25/25 10:00 02/25/25 09:50 17 GM Sennosides 17.2 mg HS PO 02/24/25 22:00 Piperacillin Sod/ Tazobactam Sod 100 ml @ 25 mls/hr Q8HR IV 02/25/25 14:00 02/25/25 14:53 25 MLS/HR Albuterol 1.25 mg Q4HPRN PRN NEB 02/25/25 15:30 Ipratropium [place] 0.5 mg Q4HPRN PRN NEB 02/25/25 15:30 Aspirin 81 mg DAILY PO 02/26/25 10:00 Atorvastatin Calcium 40 mg HS PO 02/25/25 22:00 Examination General Appearance: Cooperative. Well developed. Well nourished. NAD Head Exam: Normal inspection Neck Exam: Normal inspection. Non-tender. Normal alignment Pulmonary/Respiratory: Chest non-tender. bilateral decreased breath sounds, no crackles, no wheezing. Cardiovascular/Chest: Regular rate and rhythm. No murmurs. No JVD. Peripheral Pulses: 2+ Radial (R). 2+ Radial (L). 2+ Pedal (R). 2+ Pedal (L) Abdominal Exam: Normal bowel sounds. Soft. normal abdomen, no visible veins, tenderness to palpation in epigastric area. No hepatospenomegaly. No masses Ankle Exam: Negative ankle edema Lower extremities: Negative lower extremity edema Neuro/Mental Status: A&O x4. Coherent. Thoughts/Psych: Normal thought pattern. Appropriate mood and affect. Good judgement and insight Skin Exam: Normal inspection. Normal color. Warm. Dry laboratory and microbiology Laboratory Tests 02/25/25 08:30 Test 02/25/25 08:30 Range/Units Serum Glucose 185 H 74-106 mg/dL Microbiology Date/Time Source Procedure Growth Status 02/24/25 15:47 Blood Blood Culture - Preliminary Resulted Labs and/or images reviewed: Labs reviewed by me, Image(s) reviewed by me Problem List/Assessment/Plan Problem List/Assessment/Plan # Sepsis likely due to UTI # Probable Colovesical fistula - CT abdomen pelvis showed air within the urinary bladder raising question for a colovesical fistula - surgery on board- ordered cystogram, urology consultation for possible cystoscopy if cystogram is equivocal - IV fluids - IV antibiotics vancomycin, Flagyl - blood culture- prelim Gram-positive cocci in clusters - urine culture pending - soft mechanical diet # Acute Microcytic hypochromic anemia # Probable Anemia of chronic disease # Rule out GI bleed - 1 unit PRBC - monitor hemoglobin and keep above 7 - stool occult blood negative # Severe Constipation # Hiatal hernia # GERD - IV Protonix 40 mg daily - MiraLax and senna # Acute on chronic hypoxic respiratory failure # COPD - duo nebs q.6 hours - keep saturation between 88-92% # HFpEF with EF 55% # Probable pulmonary hypertension # Hypertensive heart disease - echo from October 2023 showed LVEF 55% to with the RVSP 38 mmHg - repeat echo- LVEF 65%, severe septal hypertrophy - hold any diuretics, antihypertensives as patient is septic with soft BP - aspirin 81 mg daily p.o., Lipitor 40 mg hs p.o # BRAD on CKD stage 4, likely prerenal due to VMN # Hyperkalemia - hyperkalemia resolved - IV fluids - monitor electrolytes and kidney function No DVT prophylaxis since the patient has anemia Goals of care discussed with the patient and patient's daughter Cedric who is her POA,Full code Plan discussed with Dr. Escalera Plan discussed with: Patient, Daughter My Orders My Orders Orders - SHAMAR ELLISON Procedure Category Date Status Time Hemoglobin & LAB 02/25/25 Logged Hematocrit 22:00 Hemoglobin & LAB 02/26/25 Verified Hematocrit 10:00 Piperacillin-Tazob PHA 02/25/25 In Process 3.375gm (Zosyn 3.375g 14:00 Albuterol Medneb PHA 02/25/25 In Process (Ventolin Medneb) 15:30 Ipratropium Medneb PHA 02/25/25 In Process (Atrovent Medneb) 15:30 Aspirin Chewable PHA 02/26/25 In Process Tablet 10:00 Atorvastatin (Lipitor) PHA 02/25/25 In Process 22:00 Mechanical Soft Diet DIET 02/25/25 Transmitted Dinner Date of Service: Feb 25, 2025 Billing Provider: LATIA ESCALERA MD Common Visit Codes: [id number] INP/OBS CARE(HIGH) SHAMAR ELLISON Feb 25, 2025 18:03 LATIA ESCALERA MD Feb 26, 2025 20:08
[2025-02-25] MEDS: ATORVASTATIN 20 MG TAB PO SCH (21:12)
[2025-02-25 23:06] LABS: Hematocrit 18.5 % (36.0-46.0)
[2025-02-25 23:33] LABS: Hemoglobin 5.6 g/dL (12.2-16.2)
[2025-02-26] VITALS (15 sets, daily range): BP systolic 106–139; BP diastolic 48–109; PULSE 42–118; RESP 15–18; TEMP 97–99.5; O2SAT 70–99
--- NOTE | 2025-02-26 10:15 | DVHINCON2 ---
Date of service: Feb 26, 2025 Referring Physician Corinna Reason for Consultation Severe anemia History of Present Illness The patient is a 75-year-old female with a history of hypertension, CVA x2, CKD, COPD, history of GERD and hiatal hernia with frequent urinary tract infections, admitted with sepsis likely urosepsis origin, found to have severe anemia with possible colovesicular fistula. GI consultation was obtained for the anemia. Patient is a poor historian. She denies any prior history of GI workup, endoscopy or colonoscopy. The patient has been refusing transfusions and blood sugar checks this morning. Surgery has been called to evaluate the patient. Past Medical History As above Past Surgical History Denies Family History: FH: heart disease G8 MOTHER Grandmother Family History No gastrointestinal diseases or malignancy Social History No significant tobacco, alcohol or recreational drug use history Allergies: Coded Allergies: No Known Drug Allergy (Verified Allergy, Unknown, 11/10/23) Home Meds Active Scripts Ibuprofen Micronized (Ibuprofen) 600 Mg Tab, 600 MG PO Q6HPRN PRN for 5 Days, #20 TAB Prov:MCKINLEY BRYAN PATIENT FINANCIAL SERVICES MANAGER 10/11/24 Reported Medications Zolpidem Tartrate (Zolpidem Tartrate) 10 Mg Tab, 1 TAB PO QPM for 30 Days, #30 11/14/23 Hydrocodone-Acetaminophen (Hydrocodone Bitartrate/AC 5-325 mg) 1 Tab Tab, 1 TAB PO Q6HR PRN for MODERATE TO SEVERE PAIN for 15 Days, #60 11/14/23 Divalproex Sodium (Divalproex Sodium Dr) 500 Mg Tab, 750 MG PO BID for MOOD DISORDERS for 31 Days, #186 11/14/23 Furosemide (Furosemide) 20 Mg Tab, 1 TAB PO BID for 31 Days, #62 11/14/23 Amlodipine Besylate (Amlodipine Besylate) 10 Mg Tab, 1 TAB PO DAILY for 31 Days, #31 11/14/23 Albuterol Sulfate (Albuterol Sulfate) 0.083 % Neb, 1 VIAL NEB Q6HR 08/14/23 Ferrous Sulfate (Ferosul) 325 Mg Tab, 1 TAB PO TID 08/14/23 Donepezil Hydrochloride (DONEPEZIL HCL) 10 Mg Tab, 1 TAB PO DAILY 08/14/23 Aspirin (Aspirin Low Dose) 81 Mg Chw, 1 TAB PO DAILY, #30 TAB 3 Refills 08/14/23 Atorvastatin Calcium (Lipitor) 40 Mg Tab, 1 TAB PO DAILY, #30 TAB 5 Refills 08/14/23 Losartan Potassium (Losartan Potassium) 25 Mg Tab, 1 TAB PO DAILY for 30 Days, MG 08/14/23 Metoprolol Tartrate (Lopressor) 25 Mg Tb, 1 TAB PO BID, TAB 0 Refills 08/14/23 Triamterene & Hydrochlorothiaz (Maxzide) 1 Tab Tab, 1 TAB PO DAILY, #30 TAB 5 Refills 08/14/23 Current Medications Current Medications Medications (Trade) Dose Ordered Sig/Luis Route PRN Reason Start Time Stop Time Status Last Admin Piperacillin Sod/ Tazobactam Sod 100 ml @ 25 mls/hr Q8HR IV 02/25/25 14:00 02/26/25 06:45 Albuterol (Ventolin Medneb) 1.25 mg Q4HPRN PRN NEB SHORTNESS OF BREATH 02/25/25 15:30 Ipratropium [place] (Atrovent Medneb) 0.5 mg Q4HPRN PRN NEB SHORTNESS OF BREATH 02/25/25 15:30 Aspirin 81 mg DAILY PO 02/26/25 10:00 Atorvastatin Calcium (Lipitor) 40 mg HS PO 02/25/25 22:00 02/25/25 21:12 Acetaminophen (Tylenol Tablet) 650 mg Q6HP PRN PO MILD PAIN (1-3 PAIN SCALE) 02/26/25 01:00 Review of Systems Review of systems as above. Otherwise negative Vital Signs Vital Signs Date Time Temp Pulse Resp B/P (MAP) Pulse Ox O2 Delivery O2 Flow Rate FiO2 02/26/25 05:29 98.5 112 16 106/108 98.5 02/26/25 05:00 99 02/25/25 20:00 Nasal Cannula* 4 36 Physical Exam General: Awake, lying in bed, moderate distress HEENT: NC/AT EOMI PERRLA OB clear, poor dentition Heart: Regular rate and rhythm: Abdomen: Soft, mild to moderate tenderness to palpation, distended Extremity: No clubbing cyanosis or edema Neuro: Cranial nerves 2-12 grossly intact follows commands Labs/Diagnostic Data Labs Test 02/26/25 04:05 02/25/25 22:14 02/25/25 08:02/25/25 08:15 Range/Units POC Glucose 104 70-106 mg/dl Hemoglobin 5.6 #*L 12.2-16.2 g/dL Hematocrit 18.5 #L 36.0-46.0 % White Blood Count 10.4 # 4.4-10.8 10^3/uL Red Blood Count 3.27 L 4.0-5.20 10^6/uL Mean Corpuscular Volume 70.2 #L 80.0-100.0 fL Mean Corpuscular Hemoglobin 21.8 L 28.0-32.0 pg Mean Corpuscular Hemoglobin Concent 31.0 L 32.0-36.0 g/dL Red Cell Distribution Width 26.9 H 11.8-14.3 % Platelet Count 313 140-450 10^3/uL Mean Platelet Volume 7.4 6.9-10.8 fL Neutrophils (%) (Auto) 37.0-80.0 % Lymphocytes (%) (Auto) 10.0-50.0 % Monocytes (%) (Auto) 0.0-12.0 % Basophils (%) (Auto) 0.0-2.0 % Neutrophils # (Auto) 1.6-8.6 10 ^3/uL Lymphocytes # (Auto) 0.4-5.4 10 ^3/uL Monocytes # (Auto) 0-1.3 10 ^3/uL Differential Total Cells Counted 100.0 100 Neutrophils % (Manual) 90 H 37.0-80.0 Band Neutrophils % (Manual) 1 Lymphocytes % (Manual) 6 L 10.0-50.0 Monocytes % (Manual) 3 0-12 Eosinophils % (Manual) 0 0-7 Basophils % (Manual) 0 0.0-2.0 Metamyelocytes % (manual) 0 Myelocytes % (Manual) 0 Promyelocytes % (Manual) 0 Blast Cells % (Manual) 0 Reactive Lymphocytes 0 Platelet Estimate Adequate Polychromasia Slight Hypochromasia (manual) Moderate Poikilocytosis (manual) Slight Anisocytosis (manual) Moderate Microcytosis Moderate Tear Drop Cells Few Sodium Level 142 136-145 mmol/L Potassium Level 5.0 3.5-5.1 mmol/L Chloride Level 111 H 98-107 mmol/L Carbon Dioxide Level 19 L 20-31 mmol/L Anion Gap 12 5-15 Blood Urea Nitrogen 45 H 9-23 mg/dL Creatinine 1.93 H 0.550-1.02 mg/dL Glomerular Filtration Rate Calc 27 >90 mL/min BUN/Creatinine Ratio 23.3 H 10.0-20.0 Serum Glucose 185 H 74-106 mg/dL Calcium Level 8.3 L 8.7-10.4 mg/dL Random Vancomycin Level 11.7 H 5-10 ug/mL Urine Color Light-yellow Yellow Urine Clarity Hazy H Clear Urine pH 5.0 5.0-9.0 Urine Specific [place] 1.013 1.001-1.035 Urine Protein Negative Negative Urine Ketones Negative Negative Urine Blood Trace H Negative /uL Urine Nitrite Negative Negative Urine Bilirubin Negative Negative Urine Urobilinogen Normal Negative mg/dL Urine Leukocyte Esterase 2+ Negative /uL Urine RBC 8 0 - 4 /hpf Urine Microscopic WBC 25 H 0-5 /HPF Urine Squamous Epithelial Cells Few <5 /hpf Urine Bacteria Few H None Seen /hpf Urine Glucose Normal Normal mg/dL Test 02/25/25 03:57 02/25/25 01:29 02/24/25 18:18 02/24/25 15:47 Range/Units Stool Occult Blood Negative Negative Stool Occult Blood Sample #3 Negative Prothrombin Time 10.6 9.3-11.8 sec Prothrombin Time INR 1.00 0.9-1.15 Activated Partial Thromboplast Time 28.0 24.5-34.5 SEC Influenza Type A Antigen Negative Negative Influenza Type B Antigen Negative Negative SARS-CoV-2 Antigen (Rapid) Negative NEGATIVE Lactic Acid Level 1.0 0.4-2.0 mmol/L Test 02/24/25 13:01 Range/Units Eosinophils (%) (Auto) 1.0 0.0-7.0 % Eosinophils # (Auto) 0.2 0-0.8 10 ^3/uL Basophils # (Auto) 0.2 0-0.2 10 ^3/uL Nucleated Red Blood Cells 0.3 % Large Platelets Few Schistocytes Few Reticulocyte Count (auto) 3.46 H 0.5-1.5 % Total Bilirubin 0.2 0.2-1.0 mg/dL Direct Bilirubin < 0.1 <0.3 mg/dL Aspartate Amino Transferase (AST) 24 13-40 U/L Alanine Aminotransferase (ALT) 20 7-40 U/L Alkaline Phosphatase 222 H 46-116 U/L Lactate Dehydrogenase 277 H 120-246 U/L Total Protein 7.7 5.7-8.2 g/dL Albumin 4.4 3.2-4.8 g/dL Microbiology Date/Time Source Procedure Growth Status 02/25/25 08:15 Urine - [place] Urine Culture - Preliminary Resulted 02/24/25 15:47 Blood Blood Culture - Preliminary Resulted IMPRESSION: 1. 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 Retrocardiac hiatal hernia as on previous exam. 3. Recommend study be repeated with IV and oral contrast Assessment Microcytic anemia Urosepsis Suspected colovesicular fistula Abdominal pain Gerd Hernia Problems(with codes): (1) Acute respiratory failure due to COVID-19 (2) COPD exacerbation (3) Acute renal failure (4) Hyperkalemia (5) Severe anemia (6) Sepsis, unspecified organism Plan/Recommendation 1. Follow H&H and transfuse of the patient's complaint 2. Surgical follow up for colovesicular fistula 3. No EGD or colonoscopy at this time 4. Anti-reflux precautions 5. Consider EGD for eval for microcytic anemia 6. Proton pump inhibitor daily to twice daily Plan discussed with: Patient HEMA MARIE MD Feb 26, 2025 10:15
[2025-02-26] MEDS ORDERED: MORPHINE SULFATE INJ 2 MG/ml SYRG IV ONE (10:45)
[2025-02-26] MEDS ORDERED: MORPHINE SULFATE 4 MG/ML SYR/VIAL IV ONE (10:45)
[2025-02-26] MEDS: PANTOPRAZOLE 40 MG/10 ML VIAL INJ IV SCH (10:52)
[2025-02-26] MEDS: MORPHINE SULFATE INJ 2 MG/ml SYRG IV ONE (11:01)
[2025-02-26] MEDS ORDERED: MEROPENEM 500MG IVPB 50 ML IV ONE (15:30)
[2025-02-26 16:28] LABS: Urine Protein, UAD TRACE (Negative)
[2025-02-26] MEDS: MEROPENEM 1GM IVPB 50 ML IV ONE (17:16)
[2025-02-26] MEDS: D5W 5% 1,000 ML IV SCH (17:31)
--- NOTE | 2025-02-26 18:32 | DVHPNRES ---
Progress Note Date Seen: Feb 26, 2025 Resident Creating Document: SHAMAR ELLISON RESIDENT Medical Necessity Reason Pt with a Central, PICC or Fol: Yes The following are medically ne: Central Line, Lanza Catheter Subjective Review of Systems Rafia Gambino is a 75-year old female past medical history of CKD was on hemodialysis for 1 month, CVA x2, COPD on home oxygen as needed, HFpEF, C diff colitis who was brought to the ED from her daycare after she was reported to be vomiting. History was elicited from the patient and her daughter Cedric. They mentioned that the patient started having cough while eating since 2-3 weeks, and had episodes of vomiting on and off. The patient also reported that she has had decreased appetite since the last 1-2 months. He also reported having abdominal pain all over, rated as 6/10 in intensity, more in the epigastric area. CT abdomen/pelvis revealed a colovesical fistula for which surgical consult was placed. Surgeon recommended cystogram and evaluation by Urology for possible cystoscopy if cystogram is equivocal. Past medical history: CKD, CVA x2, COPD on home oxygen as needed, HFpEF, C diff colitis Past surgical history: Denies Social & Personal history: Lives at home with family, 40 pack-year smoking history, history of heavy alcohol use, history of marijuana use Home medications: Aspirin 81, divalproex 750 b.i.d., donepezil 10 mg, Lasix 20 mg b.i.d., losartan 25 mg daily, metoprolol tartrate 25 b.i.d., triamterene + hydrochlorothiazide Allergies: No known allergy Patient seen and examined at bedside. Patient is alert and oriented to time, place person and responding to all questions. Eyes: No Pain, No Vision change, No Conjunctivae inflammation, No Eyelid inflammation, No Redness ENT: No Ear pain, No Ear discharge, No Nose pain, No Nose discharge, No Nose congestion, No Mouth pain, No Mouth swelling, No Throat pain, No Throat swelling Cardiovascular: No Chest Pain, No Palpitations, No Orthopnea, No Paroxysmal No Dyspnea, No Edema, No Lt Headedness Respiratory: No Cough, No Dry, No Shortness of breath, No SOB with exertion, No Wheezing, No Hemoptysis, No Pleuritic Pain, No Sputum Gastrointestinal: No Nausea, No Vomiting, Abdominal Pain, No Diarrhea, No Constipation, No Melena, No Hematochezia Genitourinary: No Dysuria, No Frequency, No Incontinence, No Hematuria, No Retention 02/26/25- the patient was seen and evaluated at bedside. Last night her hemoglobin dropped to 5.6, after which he was given 2 units of PRBC and repeat H and H was ordered. The patient has been refusing blood draw for CBC and BMP today. The patient was explained about the importance of the lab work and she demonstrated understanding of the same. We are pending the results of the blood work. GI was consulted and they recommended monitoring H&H and transfusing as needed, and surgical follow up for colovesical fistula. We are pending cystogram for the patient for evaluation of the colovesical fistula, which could be the source of bleeding, but Radiology Services will be available on Saturday. She was started on meropenem. Her blood sugar level was 57, so she was started on D5 W drip at 30 mL/hour, which will be stopped if blood sugar level is more than 180 on Accu-Chek. Blood culture came back positive for g positive cocci in clusters and SOB was negative. The patient had 1 bowel movement yesterday. She was given morphine 1 g IV for abdominal pain. Objective vital signs Vital Sign Date Time Temp Pulse Resp B/P (MAP) Pulse Ox O2 Delivery O2 Flow Rate FiO2 02/26/25 17:22 99.3 96 16 125/56 99.3 02/26/25 16:59 98 02/26/25 09:49 Nasal Cannula 3.0 02/26/25 09:49 32 Total Intake and Output 02/25/25 02/25/25 02/26/25 15:00 23:00 07:00 Intake Total 600 ml 500 ml 700 ml Output Total 820 ml Balance 600 ml -320 ml 700 ml medications Current Medications Medications Dose Ordered Sig/Luis Route Start Time Stop Time Status Last Admin Dose Admin Vancomycin HCl 0 ml @ 0 mls/hr PER PHARMACY IV 02/24/25 16:30 Divalproex Sodium 750 mg BID PO 02/24/25 22:00 02/26/25 10:53 750 MG Diagnostic Test (Pha) 1 strip IQ4HR 02/24/25 20:00 02/26/25 16:22 1 STRIP Insulin Human Regular IQ4HR SC 02/24/25 20:00 02/25/25 16:20 3 UNITS Dextrose 50 ml UD PRN IV 02/24/25 18:15 02/26/25 12:42 50 ML Polyethylene Glycol 17 gm DAILY PO 02/25/25 10:00 02/26/25 10:55 17 GM Sennosides 17.2 mg HS PO 02/24/25 22:00 02/25/25 21:09 17.2 MG Albuterol 1.25 mg Q4HPRN PRN NEB 02/25/25 15:30 Ipratropium [place] 0.5 mg Q4HPRN PRN NEB 02/25/25 15:30 Aspirin 81 mg DAILY PO 02/26/25 10:00 02/26/25 10:54 81 MG Atorvastatin Calcium 40 mg HS PO 02/25/25 22:00 02/25/25 21:12 40 MG Acetaminophen 650 mg Q6HP PRN PO 02/26/25 01:00 Pantoprazole Sodium 40 mg BID IV 02/26/25 10:45 02/26/25 10:52 40 MG Dextrose 1,000 ml @ 30 mls/hr Q24H IV 02/26/25 13:00 02/26/25 17:31 30 MLS/HR Meropenem 50 ml @ 17 mls/hr Q12H IV 02/27/25 05:00 Examination General Appearance: Cooperative. Well developed. Well nourished. NAD. Patient has a femoral central line on left groin, no erythema or discharge. Lanza catheter in place draining clear urine. She is breathing comfortably on 3 L oxygen by nasal cannula. Head Exam: Normal inspection Neck Exam: Normal inspection. Non-tender. Normal alignment Pulmonary/Respiratory: Chest non-tender. bilateral decreased breath sounds, no crackles, no wheezing. Cardiovascular/Chest: Regular rate and rhythm. No murmurs. No JVD. Peripheral Pulses: 2+ Radial (R). 2+ Radial (L). 2+ Pedal (R). 2+ Pedal (L) Abdominal Exam: Normal bowel sounds. Soft. normal abdomen, no visible veins, tenderness to palpation in epigastric area. No hepatospenomegaly. No masses Ankle Exam: Negative ankle edema Lower extremities: Negative lower extremity edema Neuro/Mental Status: A&O x4. Coherent. Thoughts/Psych: Normal thought pattern. Appropriate mood and affect. Good judgement and insight Skin Exam: Normal inspection. Normal color. Warm. Dry laboratory and microbiology Laboratory Tests 02/25/25 22:14 02/25/25 08:30 Test 02/25/25 08:30 Range/Units Serum Glucose 185 H 74-106 mg/dL Microbiology Date/Time Source Procedure Growth Status 02/25/25 08:15 Urine - [place] Urine Culture - Preliminary Resulted 02/24/25 15:47 Blood Blood Culture - Preliminary Resulted Labs and/or images reviewed: Labs reviewed by me, Image(s) reviewed by me Problem List/Assessment/Plan Problem List/Assessment/Plan # Sepsis likely due to UTI # Probable Colovesical fistula - CT abdomen pelvis showed air within the urinary bladder raising question for a colovesical fistula - surgery on board- ordered cystogram, urology consultation for possible cystoscopy if cystogram is equivocal - IV fluids - IV antibiotics vancomycin, meropenem - blood culture- prelim Gram-positive cocci in clusters - urine culture - still ruling out pathogens - soft mechanical diet - pending repeat lactic acid # Acute Microcytic hypochromic anemia s/p 3 pRBCc # Probable Anemia of chronic disease # Rule out GI bleed - 3 unit PRBC - monitor hemoglobin and keep above 7, pending labs for today - stool occult blood negative - repeat UA showed 2+ blood # Severe Constipation # Hiatal hernia # GERD - IV Protonix 40 mg daily - MiraLax and senna # Acute on chronic hypoxic respiratory failure # COPD - duo nebs q.6 hours - keep saturation between 88-92% # HFpEF with EF 55% # Probable pulmonary hypertension # Hypertensive heart disease - echo from October 2023 showed LVEF 55% to with the RVSP 38 mmHg - repeat echo- LVEF 65%, severe septal hypertrophy - hold any diuretics, antihypertensives as patient is septic with soft BP - aspirin 81 mg daily p.o., Lipitor 40 mg hs p.o # BRAD on CKD stage 4, likely prerenal due to VMN # Hyperkalemia - hyperkalemia resolved - IV fluids - monitor electrolytes and kidney function # Hypoglycemia -blood glucose level was 57 -the patient on D5W at 30 mL/hour, discontinue if blood sugar level is more than 180 on Accu-Chek No DVT prophylaxis since the patient has anemia Goals of care discussed with the patient and patient's daughter Cedric who is her POA,Full code Plan discussed with Dr. Escalera Plan discussed with: Patient My Orders My Orders Orders - SHAMAR ELLISON Procedure Category Date Status Time Stool Occult Blood LAB 02/26/25 Logged 10:21 D5w 5% (Dextrose 5%) PHA 02/26/25 In Process 13:00 Date of Service: Feb 26, 2025 Billing Provider: LATIA ESCALERA MD Common Visit Codes: [id number] INP/OBS CARE(HIGH) SHAMAR ELLISON RESIDENT Feb 26, 2025 18:32 LATIA ESCALERA MD Feb 26, 2025 20:11
[2025-02-26] MEDS: VANCOMYCIN 1GM/250ML IV ONE (20:24)
[2025-02-27] VITALS (11 sets, daily range): BP systolic 107–149; BP diastolic 59–98; PULSE 80–124; RESP 16–20; TEMP 96–98.4; O2SAT 92–99
[2025-02-27 00:28] LABS: Hematocrit 29.5 % (36.0-46.0); Hemoglobin 9.5 g/dL (12.2-16.2); Mean Corpuscular Hemoglobin 23.8 pg (28.0-32.0); Mean Corpuscular Volume 73.7 fL (80.0-100.0); Nucleated Red Blood Cells % 0.4 %
[2025-02-27 00:49] LABS: Alanine Aminotransferase 14 U/L (7-40); Anion Gap 9 (5-15); BUN/Creatinine Ratio 20.4 (10.0-20.0); Carbon Dioxide 24 mmol/L (20-31); Potassium 4.8 mmol/L (3.5-5.1); Sodium 145 mmol/L (136-145)
[2025-02-27 00:50] LABS: Albumin 3.2 g/dL (3.2-4.8); Alkaline Phosphatase 150 U/L (46-116); Bilirubin, Total 0.3 mg/dL (0.2-1.0); Blood Urea Nitrogen 30 mg/dL (9-23); Calcium 7.6 mg/dL (8.7-10.4); Chloride 112 mmol/L (98-107); Glucose 123 mg/dL (74-106); Total Protein 5.6 g/dL (5.7-8.2)
[2025-02-27] MEDS: MEROPENEM 1GM IVPB 50 ML IV SCH (04:50)
[2025-02-27 06:47] LABS: Hemoglobin 10.5 g/dL (12.2-16.2); Nucleated Red Blood Cells % 0.3 %
[2025-02-27 06:50] LABS: Hematocrit 32.4 % (36.0-46.0); Mean Corpuscular Hemoglobin 23.8 pg (28.0-32.0); Mean Corpuscular Volume 73.7 fL (80.0-100.0)
[2025-02-27 07:02] LABS: Carbon Dioxide 24 mmol/L (20-31)
[2025-02-27 07:05] LABS: Calcium 7.9 mg/dL (8.7-10.4)
[2025-02-27 07:07] LABS: BUN/Creatinine Ratio 18.6 (10.0-20.0); Glucose 85 mg/dL (74-106)
[2025-02-27 07:12] LABS: Blood Urea Nitrogen 26 mg/dL (9-23)
[2025-02-27 07:48] LABS: Anion Gap 9 (5-15); Potassium 5.1 mmol/L (3.5-5.1)
[2025-02-27 07:50] LABS: Chloride 113 mmol/L (98-107); Sodium 146 mmol/L (136-145)
--- NOTE | 2025-02-27 12:14 | DVHPN2 ---
Progress Note - Dictate Date Seen: Feb 27, 2025 Medical Necessity Reason Pt with a Central, PICC or Fol: Yes The following are medically ne: Central Line, Lanza Catheter Subjective E: no major events o/n. no complaints. vital signs Vital Sign Date Time Temp Pulse Resp B/P (MAP) Pulse Ox O2 Delivery O2 Flow Rate FiO2 02/27/25 10:00 95 Nasal Cannula 1.0 02/27/25 10:00 24 02/27/25 09:00 96.0 87 18 130/98 (109) 96.0 Total Intake and Output 02/26/25 02/26/25 02/27/25 15:00 23:00 07:00 Intake Total 2050 ml 300 ml Output Total 1500 ml 600 ml Balance 550 ml -300 ml medications Current Medications Medications Dose Ordered Sig/Luis Route Start Time Stop Time Status Last Admin Dose Admin Vancomycin HCl 0 ml @ 0 mls/hr PER PHARMACY IV 02/24/25 16:30 Divalproex Sodium 750 mg BID PO 02/24/25 22:00 02/27/25 08:58 750 MG Diagnostic Test (Pha) 1 strip IQ4HR 02/24/25 20:00 02/27/25 12:12 1 STRIP Insulin Human Regular IQ4HR SC 02/24/25 20:00 02/25/25 16:20 3 UNITS Dextrose 50 ml UD PRN IV 02/24/25 18:15 02/26/25 12:42 50 ML Polyethylene Glycol 17 gm DAILY PO 02/25/25 10:00 02/26/25 10:55 17 GM Sennosides 17.2 mg HS PO 02/24/25 22:00 02/26/25 22:23 17.2 MG Albuterol 1.25 mg Q4HPRN PRN NEB 02/25/25 15:30 Ipratropium Drum[place] 0.5 mg Q4HPRN PRN NEB 02/25/25 15:30 Aspirin 81 mg DAILY PO 02/26/25 10:00 02/26/25 10:54 81 MG Atorvastatin Calcium 40 mg HS PO 02/25/25 22:00 02/26/25 22:22 40 MG Acetaminophen 650 mg Q6HP PRN PO 02/26/25 01:00 Pantoprazole Sodium 40 mg BID IV 02/26/25 10:45 02/27/25 08:55 40 MG Dextrose 1,000 ml @ 30 mls/hr Q24H IV 02/26/25 13:00 02/26/25 17:31 30 MLS/HR Meropenem 50 ml @ 17 mls/hr Q12H IV 02/27/25 05:00 02/27/25 04:50 17 MLS/HR objective GEN: NAD ABD: soft. NT/ND. laboratory and microbiology Laboratory Tests 02/27/25 05:40 Test 02/27/25 05:40 Range/Units Serum Glucose 85 74-106 mg/dL Assessment/Plan A: 1. Possible colovesical fistula P: 1. cystogram not done yet. Plan discussed with: Patient ABHILASH PATEL MD Feb 27, 2025 12:14
--- NOTE | 2025-02-27 13:32 | DVHPN2 ---
Subjective The patient seen and examined at bedside. No complains today. Reviewed: Care Plan, H&P, Labs, Medications, Previous Orders, Radiology Changes from previous H/P or p: No Changes Objective Vitals Vital Signs Date Time Temp Pulse Resp B/P (MAP) Pulse Ox O2 Delivery O2 Flow Rate FiO2 02/27/25 10:00 95 Nasal Cannula 1.0 02/27/25 10:00 24 02/27/25 09:00 96.0 87 18 130/98 (109) 96.0 Intake/Output Intake and Output 02/27/25 07:00 Intake Total 2350 ml Output Total 2100 ml Balance 250 ml Intake Oral 1500 ml IV Total 250 ml Blood Product 300 ml Packed Cells 300 ml Output Urine Total 2100 ml # Bowel Movements 1 General Appearance: Alert, Cooperative, No acute distress HEENT: Atraumatic, PERRLA, EOMI, Mucous membr. moist/pink Neck: Supple Lungs: Clear to auscultation, Normal air movement Cardiovascular: Regular rate, Normal S1, Normal S2, No murmurs, Gallops, Rubs Abdomen: No tenderness, No hepatospenomegaly, Other (Decrease BS) Neuro: Cranial nerves 3-12 NL Medications Current Medications Medications Dose Ordered Sig/Luis Route Start Time Stop Time Status Last Admin Dose Admin Vancomycin HCl 0 ml @ 0 mls/hr PER PHARMACY IV 02/24/25 16:30 Divalproex Sodium 750 mg BID PO 02/24/25 22:00 02/27/25 08:58 750 MG Diagnostic Test (Pha) 1 strip IQ4HR 02/24/25 20:00 02/27/25 12:12 1 STRIP Insulin Human Regular IQ4HR SC 02/24/25 20:00 02/25/25 16:20 3 UNITS Dextrose 50 ml UD PRN IV 02/24/25 18:15 02/26/25 12:42 50 ML Polyethylene Glycol 17 gm DAILY PO 02/25/25 10:00 02/26/25 10:55 17 GM Sennosides 17.2 mg HS PO 02/24/25 22:00 02/26/25 22:23 17.2 MG Albuterol 1.25 mg Q4HPRN PRN NEB 02/25/25 15:30 Ipratropium Ellery 0.5 mg Q4HPRN PRN NEB 02/25/25 15:30 Aspirin 81 mg DAILY PO 02/26/25 10:00 02/26/25 10:54 81 MG Atorvastatin Calcium 40 mg HS PO 02/25/25 22:00 02/26/25 22:22 40 MG Acetaminophen 650 mg Q6HP PRN PO 02/26/25 01:00 Pantoprazole Sodium 40 mg BID IV 02/26/25 10:45 02/27/25 08:55 40 MG Dextrose 1,000 ml @ 30 mls/hr Q24H IV 02/26/25 13:00 02/27/25 13:30 30 MLS/HR Meropenem 50 ml @ 17 mls/hr Q12H IV 02/27/25 05:00 02/27/25 04:50 17 MLS/HR Laboratory Results Laboratory Tests 02/27/25 05:40 Chemistry Test 02/27/25 00:07 02/27/25 05:40 Albumin 3.2 g/dL (3.2-4.8) Calcium Level 7.6 mg/dL (8.7-10.4) L 7.9 mg/dL (8.7-10.4) L Total Protein 5.6 g/dL (5.7-8.2) L LFT Test 02/27/25 00:07 Alanine Aminotransferase (ALT) 14 U/L (7-40) Alkaline Phosphatase 150 U/L (46-116) H Aspartate Amino Transferase (AST) 19 U/L (13-40) Total Bilirubin 0.3 mg/dL (0.2-1.0) Urinalysis Test 02/26/25 15:27 Urine Color Light-yellow (Yellow) Urine Clarity Clear (Clear) Urine pH 5.5 (5.0-9.0) Urine Specific [place] 1.017 (1.001-1.035) Urine Protein Trace (Negative) H Urine Ketones Negative (Negative) Urine Blood 2+ /uL (Negative) H Urine Nitrite Negative (Negative) Urine Bilirubin Negative (Negative) Urine Urobilinogen Normal mg/dL (Negative) Urine Leukocyte Esterase 2+ /uL (Negative) Urine RBC 94 /hpf (0 - 4) Urine Microscopic WBC 18 /HPF (0-5) H Urine Squamous Epithelial Cells Few /hpf (<5) Urine Bacteria Few /hpf (None Seen) H Urine Mucus Few (None Seen) Urine Glucose Normal mg/dL (Normal) Microbiology Microbiology Date/Time Source Procedure Growth Status 02/25/25 08:15 Urine - Lanza Port Urine Culture - Final Escherichia coli Complete 02/24/25 15:47 Blood Blood Culture - Preliminary Resulted Labs and/or images reviewed: Labs reviewed by me Assessment/Plan Assessment/Plan # Sepsis likely due to UTI # Probable Colovesical fistula - CT abdomen pelvis showed air within the urinary bladder raising question for a colovesical fistula - surgery on board- ordered cystogram, urology consultation for possible cystoscopy if cystogram is equivocal - IV fluids - IV antibiotics vancomycin, meropenem - blood culture- prelim Gram-positive cocci in clusters - urine culture - still ruling out pathogens - soft mechanical diet - pending repeat lactic acid # Acute Microcytic hypochromic anemia s/p 3 pRBCc # Probable Anemia of chronic disease # Rule out GI bleed - 3 unit PRBC - monitor hemoglobin and keep above 7, pending labs for today - stool occult blood negative - repeat UA showed 2+ blood # Severe Constipation # Hiatal hernia # GERD - IV Protonix 40 mg daily - MiraLax and senna # Acute on chronic hypoxic respiratory failure # COPD - duo nebs q.6 hours - keep saturation between 88-92% # HFpEF with EF 55% # Probable pulmonary hypertension # Hypertensive heart disease - echo from October 2023 showed LVEF 55% to with the RVSP 38 mmHg - repeat echo- LVEF 65%, severe septal hypertrophy - hold any diuretics, antihypertensives as patient is septic with soft BP - aspirin 81 mg daily p.o., Lipitor 40 mg hs p.o # BRAD on CKD stage 4, likely prerenal due to VMN # Hyperkalemia - hyperkalemia resolved - IV fluids - monitor electrolytes and kidney function # Hypoglycemia -blood glucose level was 57 -the patient on D5W at 30 mL/hour, discontinue if blood sugar level is more than 180 on Accu-Chek No DVT prophylaxis since the patient has anemia Continue current management. waiting for cystogram. Plan discussed with: Patient Date of Service: Feb 27, 2025 Billing Provider: LATIA ESCALERA MD Common Visit Codes: [id number] INP/OBS CARE(HIGH) LATIA ESCALERA MD Feb 27, 2025 13:32
[2025-02-27] MEDS: ACETAMINOPHEN 325 MG TAB PO PRN (18:03)
[2025-02-28] VITALS (11 sets, daily range): BP systolic 144–171; BP diastolic 75–94; PULSE 57–130; RESP 16–19; TEMP 96–98.4; O2SAT 93–98
--- NOTE | 2025-02-28 13:36 | DVHPN2 ---
Progress Note - Dictate Date Seen: Feb 28, 2025 Medical Necessity Reason Pt with a Central, PICC or Fol: No The following are medically ne: Central Line, Lanza Catheter Subjective E: no major events o/n. no complaints. vital signs Vital Sign Date Time Temp Pulse Resp B/P (MAP) Pulse Ox O2 Delivery O2 Flow Rate FiO2 02/28/25 10:00 97 Nasal Cannula 1.0 02/28/25 10:00 24 02/28/25 09:00 96.0 104 16 159/83 (108) 96.0 Total Intake and Output 02/27/25 02/27/25 02/28/25 15:00 23:00 07:00 Intake Total 650 ml 200 ml Output Total 600 ml 500 ml Balance 50 ml -300 ml medications Current Medications Medications Dose Ordered Sig/Luis Route Start Time Stop Time Status Last Admin Dose Admin Vancomycin HCl 0 ml @ 0 mls/hr PER PHARMACY IV 02/24/25 16:30 Divalproex Sodium 750 mg BID PO 02/24/25 22:00 02/28/25 09:55 750 MG Diagnostic Test (Pha) 1 strip IQ4HR 02/24/25 20:00 02/28/25 04:00 1 STRIP Insulin Human Regular IQ4HR SC 02/24/25 20:00 02/25/25 16:20 3 UNITS Dextrose 50 ml UD PRN IV 02/24/25 18:15 02/26/25 12:42 50 ML Polyethylene Glycol 17 gm DAILY PO 02/25/25 10:00 02/28/25 09:56 17 GM Sennosides 17.2 mg HS PO 02/24/25 22:00 02/26/25 22:23 17.2 MG Albuterol 1.25 mg Q4HPRN PRN NEB 02/25/25 15:30 Ipratropium Anderson 0.5 mg Q4HPRN PRN NEB 02/25/25 15:30 Aspirin 81 mg DAILY PO 02/26/25 10:00 02/28/25 09:55 81 MG Atorvastatin Calcium 40 mg HS PO 02/25/25 22:00 02/27/25 21:27 40 MG Acetaminophen 650 mg Q6HP PRN PO 02/26/25 01:00 02/27/25 18:03 650 MG Pantoprazole Sodium 40 mg BID IV 02/26/25 10:45 02/28/25 09:55 40 MG Dextrose 1,000 ml @ 30 mls/hr Q24H IV 02/26/25 13:00 02/27/25 23:28 30 MLS/HR Ceftriaxone Sodium 50 ml @ 100 mls/hr DAILY@09 IV 03/01/25 09:00 objective GEN: NAD ABD: soft. NT/ND. laboratory and microbiology Laboratory Tests 02/27/25 05:40 Test 02/27/25 05:40 Range/Units Serum Glucose 85 74-106 mg/dL Assessment/Plan A: 1. Possible colovesical fistula P: 1. cystogram not done yet. Plan discussed with: Patient ABHILASH PATEL MD Feb 28, 2025 13:36
[2025-02-28 15:42] LABS: Hematocrit 32.2 % (36.0-46.0); Nucleated Red Blood Cells % 0.1 %
[2025-02-28 15:44] LABS: Hemoglobin 10.1 g/dL (12.2-16.2); Mean Corpuscular Hemoglobin 23.4 pg (28.0-32.0); Mean Corpuscular Volume 74.5 fL (80.0-100.0)
--- NOTE | 2025-02-28 16:15 | MEDREC ---
[facility] ASP Intervention Section I FORMERLY [facility] ASP Intervention: Review courses of therapy (Please consider d/c vancomycin, positive blood culture 1/4 aerobic bottle with S. epidermitis is posible a contamination. Zosyn provides enough empiric coverage for colovesical fistula) ROHIT MORRIS [facility] RESIDENT Feb 28, 2025 16:15
--- NOTE | 2025-02-28 16:36 | DVHPNRES ---
Progress Note Date Seen: Feb 28, 2025 Resident Creating Document: SHAMAR ELLISON RESIDENT Medical Necessity Reason Pt with a Central, PICC or Fol: No The following are medically ne: Central Line, Lanza Catheter Subjective Review of Systems Rafia Gambino is a 75-year old female past medical history of CKD was on hemodialysis for 1 month, CVA x2, COPD on home oxygen as needed, HFpEF, C diff colitis who was brought to the ED from her daycare after she was reported to be vomiting. History was elicited from the patient and her daughter Cedric. They mentioned that the patient started having cough while eating since 2-3 weeks, and had episodes of vomiting on and off. The patient also reported that she has had decreased appetite since the last 1-2 months. He also reported having abdominal pain all over, rated as 6/10 in intensity, more in the epigastric area. CT abdomen/pelvis revealed a colovesical fistula for which surgical consult was placed. Surgeon recommended cystogram and evaluation by Urology for possible cystoscopy if cystogram is equivocal. Past medical history: CKD, CVA x2, COPD on home oxygen as needed, HFpEF, C diff colitis Past surgical history: Denies Social & Personal history: Lives at home with family, 40 pack-year smoking history, history of heavy alcohol use, history of marijuana use Home medications: Aspirin 81, divalproex 750 b.i.d., donepezil 10 mg, Lasix 20 mg b.i.d., losartan 25 mg daily, metoprolol tartrate 25 b.i.d., triamterene + hydrochlorothiazide Allergies: No known allergy Patient seen and examined at bedside. Patient is alert and oriented to time, place person and responding to all questions. Eyes: No Pain, No Vision change, No Conjunctivae inflammation, No Eyelid inflammation, No Redness ENT: No Ear pain, No Ear discharge, No Nose pain, No Nose discharge, No Nose congestion, No Mouth pain, No Mouth swelling, No Throat pain, No Throat swelling Cardiovascular: No Chest Pain, No Palpitations, No Orthopnea, No Paroxysmal No Dyspnea, No Edema, No Lt Headedness Respiratory: No Cough, No Dry, No Shortness of breath, No SOB with exertion, No Wheezing, No Hemoptysis, No Pleuritic Pain, No Sputum Gastrointestinal: No Nausea, No Vomiting, Abdominal Pain, No Diarrhea, No Constipation, No Melena, No Hematochezia Genitourinary: No Dysuria, No Frequency, No Incontinence, No Hematuria, No Retention 02/26/25- The patient was seen and evaluated at bedside. Last night her hemoglobin dropped to 5.6, after which he was given 2 units of PRBC and repeat H and H was ordered. The patient has been refusing blood draw for CBC and BMP today. The patient was explained about the importance of the lab work and she demonstrated understanding of the same. We are pending the results of the blood work. GI was consulted and they recommended monitoring H&H and transfusing as needed, and surgical follow up for colovesical fistula. We are pending cystogram for the patient for evaluation of the colovesical fistula, which could be the source of bleeding, but Radiology Services will be available on Saturday. She was started on meropenem. Her blood sugar level was 57, so she was started on D5 W drip at 30 mL/hour, which will be stopped if blood sugar level is more than 180 on Accu-Chek. Blood culture came back positive for g positive cocci in clusters and SOB was negative. The patient had 1 bowel movement yesterday. She was given morphine 1 g IV for abdominal pain. 02/27/25-the patient was seen at bedside today. All labs and charts were reviewed. We will continue with the same management. 02/28/25- the patient was seen and evaluated at bedside. Hemoglobin today 10.5. Urine culture came back positive for E coli. Meropenem was discontinued and patient was started on ceftriaxone. D5W was discontinued . Her home medication amlodipine 10 mg p.o. daily and metoprolol 25 mg p.o. daily were resumed. The patient has been refusing labs and Accu-Cheks, despite being educated about importance of these. Objective vital signs Vital Sign Date Time Temp Pulse Resp B/P (MAP) Pulse Ox O2 Delivery O2 Flow Rate FiO2 02/28/25 13:00 96.7 83 16 171/94 (119) 95 96.7 02/28/25 10:00 Nasal Cannula 1.0 02/28/25 10:00 24 Total Intake and Output 02/27/25 02/27/25 02/28/25 15:00 23:00 07:00 Intake Total 650 ml 200 ml Output Total 600 ml 500 ml Balance 50 ml -300 ml medications Current Medications Medications Dose Ordered Sig/Luis Route Start Time Stop Time Status Last Admin Dose Admin Divalproex Sodium 750 mg BID PO 02/24/25 22:00 02/28/25 09:55 750 MG Diagnostic Test (Pha) 1 strip IQ4HR 02/24/25 20:00 02/28/25 04:00 1 STRIP Insulin Human Regular IQ4HR SC 02/24/25 20:00 02/25/25 16:20 3 UNITS Dextrose 50 ml UD PRN IV 02/24/25 18:15 02/26/25 12:42 50 ML Polyethylene Glycol 17 gm DAILY PO 02/25/25 10:00 02/28/25 09:56 17 GM Sennosides 17.2 mg HS PO 02/24/25 22:00 02/26/25 22:23 17.2 MG Albuterol 1.25 mg Q4HPRN PRN NEB 02/25/25 15:30 Ipratropium Abbott 0.5 mg Q4HPRN PRN NEB 02/25/25 15:30 Aspirin 81 mg DAILY PO 02/26/25 10:00 02/28/25 09:55 81 MG Atorvastatin Calcium 40 mg HS PO 02/25/25 22:00 02/27/25 21:27 40 MG Acetaminophen 650 mg Q6HP PRN PO 02/26/25 01:00 02/27/25 18:03 650 MG Pantoprazole Sodium 40 mg BID IV 02/26/25 10:45 02/28/25 09:55 40 MG Ceftriaxone Sodium 50 ml @ 100 mls/hr DAILY@ IV 03/01/25 09:00 Amlodipine Besylate 10 mg DAILY PO 03/01/25 10:00 UNV Examination General Appearance: Cooperative. Well developed. Well nourished. NAD. Patient has a femoral central line on left groin, no erythema or discharge. Lanza catheter in place draining clear urine. She is breathing comfortably on 2 L oxygen by nasal cannula. Head Exam: Normal inspection Neck Exam: Normal inspection. Non-tender. Normal alignment Pulmonary/Respiratory: Chest non-tender. bilateral decreased breath sounds, no crackles, no wheezing. Cardiovascular/Chest: Regular rate and rhythm. No murmurs. No JVD. Peripheral Pulses: 2+ Radial (R). 2+ Radial (L). 2+ Pedal (R). 2+ Pedal (L) Abdominal Exam: Normal bowel sounds. Soft. normal abdomen, no visible veins, tenderness to palpation in epigastric area. No hepatospenomegaly. No masses Ankle Exam: Negative ankle edema Lower extremities: Negative lower extremity edema Neuro/Mental Status: A&O x4. Coherent. Thoughts/Psych: Normal thought pattern. Appropriate mood and affect. Good judgement and insight Skin Exam: Normal inspection. Normal color. Warm. 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 - CT abdomen pelvis showed air within the urinary bladder raising question for a colovesical fistula - surgery on board- ordered cystogram, urology consultation for possible cystoscopy if cystogram is equivocal- due on 03/01/2025 - IV antibiotics vancomycin, ceftriaxone - blood culture- prelim Gram-positive cocci in clusters - urine culture - E coli - soft mechanical diet # Acute Microcytic hypochromic anemia s/p 3 pRBCc # Probable Anemia of chronic disease # Rule out GI bleed - 3 unit PRBC - monitor hemoglobin and keep above 7, pending labs for today - stool occult blood negative - repeat UA showed 2+ blood # Severe Constipation # Hiatal hernia # GERD - IV Protonix 40 mg daily - MiraLax and senna # Acute on chronic hypoxic respiratory failure # COPD - duo nebs q.6 hours - keep saturation between 88-92% # HFpEF with EF 55% # Probable pulmonary hypertension # Hypertensive heart disease - echo from October 2023 showed LVEF 55% to with the RVSP 38 mmHg - repeat echo- LVEF 65%, severe septal hypertrophy - hold any diuretics, antihypertensives as patient is septic with soft BP - aspirin 81 mg daily p.o., Lipitor 40 mg hs p.o # BRAD on CKD stage 4, likely prerenal due to VMN # Hyperkalemia - hyperkalemia resolved - IV fluids - monitor electrolytes and kidney function # Hypoglycemia -blood glucose level was 57 -D5W discontinued today No DVT prophylaxis since the patient has anemia Goals of care discussed with the patient and patient's daughter Cedric who is her POA,Full code Plan discussed with Dr. Escalera Plan discussed with: Patient My Orders My Orders Orders - SHAMAR ELLISON Procedure Category Date Status Time Ceftriaxone 1gm/50ml PHA 03/01/25 In Process (Rocephin) 09:00 Blood Culture MONICA 02/28/25 Logged 14:11 Amlodipine Tablet PHA 03/01/25 In Process (Norvasc Tablet) 10:00 Metoprolol Tartrate PHA 03/01/25 In Process Tablet (Lopressor Ta 10:00 Date of Service: Feb 28, 2025 Billing Provider: LATIA ESCALERA MD Common Visit Codes: [id number] INP/OBS CARE(HIGH) SHAMAR ELLISON RESIDENT Feb 28, 2025 16:36 LATIA ESCALERA MD Feb 28, 2025 22:34
[2025-02-28] MEDS ORDERED: VANCOMYCIN 500mg/100mL 100 ML IV ONE (17:00)
--- NOTE | 2025-02-28 22:48 | DVHPN2 ---
Progress Note - Dictate Date Seen: Feb 28, 2025 Medical Necessity Reason Pt with a Central, PICC or Fol: No The following are medically ne: Central Line, Lanza Catheter Subjective No new complaints, patient awake alert in no acute distress Tolerating soft mechanical diet Two bowel movements recorded Renal function improving Stool occult is negative vital signs Vital Sign Date Time Temp Pulse Resp B/P (MAP) Pulse Ox O2 Delivery O2 Flow Rate FiO2 02/28/25 21:00 97.7 57 17 144/88 (106) 98 97.7 02/28/25 20:15 Nasal Cannula* 1 24 Total Intake and Output 02/27/25 02/27/25 02/28/25 15:00 23:00 07:00 Intake Total 650 ml 200 ml Output Total 600 ml 500 ml Balance 50 ml -300 ml medications Current Medications Medications Dose Ordered Sig/Luis Route Start Time Stop Time Status Last Admin Dose Admin Divalproex Sodium 750 mg BID PO 02/24/25 22:00 02/28/25 21:59 750 MG Diagnostic Test (Pha) 1 strip IQ4HR 02/24/25 20:00 02/28/25 20:09 1 STRIP Insulin Human Regular IQ4HR SC 02/24/25 20:00 02/25/25 16:20 3 UNITS Dextrose 50 ml UD PRN IV 02/24/25 18:15 02/26/25 12:42 50 ML Polyethylene Glycol 17 gm DAILY PO 02/25/25 10:00 02/28/25 09:56 17 GM Sennosides 17.2 mg HS PO 02/24/25 22:00 02/26/25 22:23 17.2 MG Albuterol 1.25 mg Q4HPRN PRN NEB 02/25/25 15:30 Ipratropium Lewis 0.5 mg Q4HPRN PRN NEB 02/25/25 15:30 Aspirin 81 mg DAILY PO 02/26/25 10:00 02/28/25 09:55 81 MG Atorvastatin Calcium 40 mg HS PO 02/25/25 22:00 02/28/25 21:58 40 MG Acetaminophen 650 mg Q6HP PRN PO 02/26/25 01:00 02/27/25 18:03 650 MG Pantoprazole Sodium 40 mg BID IV 02/26/25 10:45 02/28/25 21:58 40 MG Ceftriaxone Sodium 50 ml @ 100 mls/hr DAILY@09 IV 03/01/25 09:00 Amlodipine Besylate 10 mg DAILY PO 03/01/25 10:00 Metoprolol Tartrate 25 mg DAILY PO 03/01/25 10:00 objective General: Awake, lying in bed, no distress ; watching TV HEENT: NC/AT EOMI PERRLA OB clear, poor dentition Heart: Regular rate and rhythm: Abdomen: Soft, mild to moderate tenderness to palpation, distended Extremity: No clubbing cyanosis or edema Neuro: Cranial nerves 2-12 grossly intact follows commands laboratory and microbiology Laboratory Tests 02/28/25 15:22 02/27/25 05:40 Test 02/27/25 05:40 Range/Units Serum Glucose 85 74-106 mg/dL CT SCAN ABD PELVIS IMPRESSION: 1. 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 Retrocardiac hiatal hernia as on previous exam. 3. Recommend study be repeated with IV and oral contrast Problems(with codes): (1) Colovesical fistula (2) Severe anemia Prognosis Plan/Recommendation 1. Follow H&H and transfuse of the patient's complaint 2. Surgical follow up for colovesicular fistula 3. No EGD or colonoscopy at this time 4. Anti-reflux precautions 5. Awaiting cystogram to rule out colovesicular fistula 6. Proton pump inhibitor daily to twice daily 7. Check CEA level Plan discussed with: Patient PORSCHE THORNE MD Feb 28, 2025 22:48
[2025-03-01] VITALS (10 sets, daily range): BP systolic 141–159; BP diastolic 66–96; PULSE 61–123; RESP 18–20; TEMP 95.6–99.7; O2SAT 91–100
[2025-03-01 06:46] LABS: Anion Gap 9 (5-15); Carbon Dioxide 26 mmol/L (20-31); Potassium 4.9 mmol/L (3.5-5.1); Sodium 143 mmol/L (136-145)
[2025-03-01 06:47] LABS: Calcium 8.9 mg/dL (8.7-10.4)
[2025-03-01 06:49] LABS: Hematocrit 33.9 % (36.0-46.0); Hemoglobin 11.1 g/dL (12.2-16.2); Mean Corpuscular Hemoglobin 23.9 pg (28.0-32.0); Mean Corpuscular Volume 73.0 fL (80.0-100.0); Nucleated Red Blood Cells % 0.1 %
[2025-03-01 06:52] LABS: BUN/Creatinine Ratio 12.5 (10.0-20.0); Blood Urea Nitrogen 15 mg/dL (9-23); Glucose 95 mg/dL (74-106)
[2025-03-01 07:07] LABS: Chloride 108 mmol/L (98-107)
--- NOTE | 2025-03-01 07:09 | ECG ---
[facility] Test Date: 2025-02-24 Test Time: 12:45:31 Pat Name: PIPE DALEY Department: Room: [facility]3T B Gender: F [employer] Architect: DALILA : 1950 Requested By: SHANEAK MITCHELL Order Number: [id number] Reading MD: Kobi Benjamin Measurements Intervals [place] Rate: 80 P: 73 DE: 151 QRS: 76 QRSD: 65 T: 0 QT: 522 QTc: 603 Interpretive Statements Sinus rhythm Anteroseptal infarct, old Prolonged QT interval Electronically Signed On 03-02-2025 14:44:08 PST by Kobi Benjamin Please click the below link to view image of tracing.
[2025-03-01] MEDS ORDERED: IOHEXOL 300 MG/ML 100ML BOTTLE IJ ONE (08:41)
[2025-03-01 08:47] LABS: Anisocytosis Moderate
[2025-03-01] MEDS: METOPROLOL TARTRATE 25 MG TAB PO SCH (09:46)
--- NOTE | 2025-03-01 10:14 | DVH ---
Exam: CT CT AB PELVIS W WO CON-IV ONLY History: POSS COLOVESICLE FISTULA COMPARISON: CT CT ABD PELVIS W CON-ORAL IV on DOS: 11/21/23, CT ABD PELVIS WO CONTRAST on DOS: 01/15/20 Technique: Multidetector spiral CT of the abdomen and pelvis was performed from lung bases to pubic symphysis. Intravenous contrast was administered during this examination. Multiphasic imaging was obtained. Axial, coronal and sagittal multiplanar reformats were performed by the technologist on a separate workstation. Radiation Dose : 1. Abdomen/Pelvis: CTDIvol 25.17mGy, DLP 4.05 mGy*cm. Findings: Lung Bases: Cardiomegaly. Coronary artery calcifications. Vascular calcifications of the aorta. Liver: The liver is normal in size. No focal lesions. Normal hepatic vascular enhancement. Gallbladder and Biliary Tree: Unremarkable Spleen: Unremarkable Pancreas: The pancreas is normal in appearance without focal lesions or abnormal enhancement. Adrenal Glands: Unchanged indeterminate left adrenal nodule measures 1.4 cm. Right adrenal gland is unremarkable. Kidneys: No hydronephrosis. Bladder: Bladder is decompressed with a Lanza catheter and cannot be adequately assessed. Bowel: Large hiatal hernia. The stomach is grossly normal in appearance. Diverticulosis. Fluid and air containing collection abutting the anterior sigmoid colon and left superior aspect of the urinary bladder measures 4.8 x 3.8 cm. This is similar in appearance to CT dated 02/24/2025 and does not opacify with excreted contrast on delayed phase images. The appendix is not visualized; however, no secondary findings of acute appendicitis identified. Ascites: Small volume pelvic free fluid. Lymphadenopathy: No mesenteric, retroperitoneal or periportal lymphadenopathy. Abdominal Wall and Mesentery: Unremarkable. Vasculature: The visualized abdominal aorta is normal in size and caliber. There is calcified atherosclerotic plaque involving the aorta and its branches. Abdominal and pelvic vessels demonstrate normal enhancement. Pelvic Organs: Unremarkable Musculoskeletal: No aggressive focal bony lesions, acute fractures or dislocation. IMPRESSION: Unchanged fluid and air collection abutting the anterior sigmoid colon and left superior aspect of the urinary bladder measuring 4.8 x 3.8 cm. This does not demonstrate opacification with excreted contrast and therefore suggest that it is not a colovesical fistula. Additional differential considerations could include contained perforation from prior diverticular disease. Clinical correlation advised. This is likely not amenable for percutaneous drainage. Radiation optimization: All CT scans at this facility use at least one of these dose optimization techniques: automated exposure control mA and/or kV adjustment per patient size (includes targeted exams where dose is matched to clinical indication) or iterative reconstruction.
--- NOTE | 2025-03-01 16:44 | DVHPNRES ---
Progress Note Date Seen: Mar 01, 2025 Resident Creating Document: SHAMAR ELLISON RESIDENT Medical Necessity Reason Pt with a Central, PICC or Fol: No The following are medically ne: Central Line, Lanza Catheter Subjective Review of Systems Rafia Gambino is a 75-year old female past medical history of CKD was on hemodialysis for 1 month, CVA x2, COPD on home oxygen as needed, HFpEF, C diff colitis who was brought to the ED from her daycare after she was reported to be vomiting. History was elicited from the patient and her daughter Cedric. They mentioned that the patient started having cough while eating since 2-3 weeks, and had episodes of vomiting on and off. The patient also reported that she has had decreased appetite since the last 1-2 months. He also reported having abdominal pain all over, rated as 6/10 in intensity, more in the epigastric area. CT abdomen/pelvis revealed a colovesical fistula for which surgical consult was placed. Surgeon recommended cystogram and evaluation by Urology for possible cystoscopy if cystogram is equivocal. Past medical history: CKD, CVA x2, COPD on home oxygen as needed, HFpEF, C diff colitis Past surgical history: Denies Social & Personal history: Lives at home with family, 40 pack-year smoking history, history of heavy alcohol use, history of marijuana use Home medications: Aspirin 81, divalproex 750 b.i.d., donepezil 10 mg, Lasix 20 mg b.i.d., losartan 25 mg daily, metoprolol tartrate 25 b.i.d., triamterene + hydrochlorothiazide Allergies: No known allergy Patient seen and examined at bedside. Patient is alert and oriented to time, place person and responding to all questions. Eyes: No Pain, No Vision change, No Conjunctivae inflammation, No Eyelid inflammation, No Redness ENT: No Ear pain, No Ear discharge, No Nose pain, No Nose discharge, No Nose congestion, No Mouth pain, No Mouth swelling, No Throat pain, No Throat swelling Cardiovascular: No Chest Pain, No Palpitations, No Orthopnea, No Paroxysmal No Dyspnea, No Edema, No Lt Headedness Respiratory: No Cough, No Dry, No Shortness of breath, No SOB with exertion, No Wheezing, No Hemoptysis, No Pleuritic Pain, No Sputum Gastrointestinal: No Nausea, No Vomiting, Abdominal Pain, No Diarrhea, No Constipation, No Melena, No Hematochezia Genitourinary: No Dysuria, No Frequency, No Incontinence, No Hematuria, No Retention 02/26/25- The patient was seen and evaluated at bedside. Last night her hemoglobin dropped to 5.6, after which he was given 2 units of PRBC and repeat H and H was ordered. The patient has been refusing blood draw for CBC and BMP today. The patient was explained about the importance of the lab work and she demonstrated understanding of the same. We are pending the results of the blood work. GI was consulted and they recommended monitoring H&H and transfusing as needed, and surgical follow up for colovesical fistula. We are pending cystogram for the patient for evaluation of the colovesical fistula, which could be the source of bleeding, but Radiology Services will be available on Saturday. She was started on meropenem. Her blood sugar level was 57, so she was started on D5 W drip at 30 mL/hour, which will be stopped if blood sugar level is more than 180 on Accu-Chek. Blood culture came back positive for g positive cocci in clusters and SOB was negative. The patient had 1 bowel movement yesterday. She was given morphine 1 g IV for abdominal pain. 02/27/25-the patient was seen at bedside today. All labs and charts were reviewed. We will continue with the same management. 02/28/25- the patient was seen and evaluated at bedside. Hemoglobin today 10.5. Urine culture came back positive for E coli. Meropenem was discontinued and patient was started on ceftriaxone. D5W was discontinued . Her home medication amlodipine 10 mg p.o. daily and metoprolol 25 mg p.o. daily were resumed. The patient has been refusing labs and Accu-Cheks, despite being educated about importance of these. 03/01/25- patient was seen at bedside today. She was weaned off the oxygen today and will be observed for any shortness of breath. Repeat abdomen CT showed no colovesical fistula. Surgery was consulted for repeat evaluation. He was started on metoprolol and lisinopril. Objective vital signs Vital Sign Date Time Temp Pulse Resp B/P (MAP) Pulse Ox O2 Delivery O2 Flow Rate FiO2 03/01/25 13:00 96.2 80 18 143/79 (100) 96 96.2 03/01/25 10:22 Nasal Cannula* 1 24 Total Intake and Output 02/28/25 02/28/25 03/01/25 15:00 23:00 07:00 Intake Total 50 ml 750 ml 350 ml Output Total 950 ml 1100 ml Balance 50 ml -200 ml -750 ml medications Current Medications Medications Dose Ordered Sig/Luis Route Start Time Stop Time Status Last Admin Dose Admin Divalproex Sodium 750 mg BID PO 02/24/25 22:00 03/01/25 09:40 750 MG Diagnostic Test (Pha) 1 strip IQ4HR 02/24/25 20:00 03/01/25 11:33 1 STRIP Insulin Human Regular IQ4HR SC 02/24/25 20:00 02/25/25 16:20 3 UNITS Dextrose 50 ml UD PRN IV 02/24/25 18:15 02/26/25 12:42 50 ML Polyethylene Glycol 17 gm DAILY PO 02/25/25 10:00 03/01/25 09:43 17 GM Sennosides 17.2 mg HS PO 02/24/25 22:00 02/26/25 22:23 17.2 MG Albuterol 1.25 mg Q4HPRN PRN NEB 02/25/25 15:30 Cancel Ipratropium [place] 0.5 mg Q4HPRN PRN NEB 02/25/25 15:30 Cancel Aspirin 81 mg DAILY PO 02/26/25 10:00 03/01/25 09:41 81 MG Atorvastatin Calcium 40 mg HS PO 02/25/25 22:00 02/28/25 21:58 40 MG Acetaminophen 650 mg Q6HP PRN PO 02/26/25 01:00 02/27/25 18:03 650 MG Pantoprazole Sodium 40 mg BID IV 02/26/25 10:45 03/01/25 09:42 40 MG Ceftriaxone Sodium 50 ml @ 100 mls/hr DAILY@09 IV 03/01/25 09:00 03/01/25 09:43 100 MLS/HR Metoprolol Succinate 25 mg BID PO 03/01/25 22:00 Lisinopril 10 mg DAILY PO 03/02/25 10:00 Examination General Appearance: Cooperative. Well developed. Well nourished. NAD. Lanza catheter in place draining clear urine. Head Exam: Normal inspection Neck Exam: Normal inspection. Non-tender. Normal alignment Pulmonary/Respiratory: Chest non-tender. bilateral decreased breath sounds, no crackles, no wheezing. Cardiovascular/Chest: Regular rate and rhythm. No murmurs. No JVD. Peripheral Pulses: 2+ Radial (R). 2+ Radial (L). 2+ Pedal (R). 2+ Pedal (L) Abdominal Exam: Normal bowel sounds. Soft. normal abdomen, no visible veins, tenderness to palpation in epigastric area. No hepatospenomegaly. No masses Ankle Exam: Negative ankle edema Lower extremities: Negative lower extremity edema Neuro/Mental Status: A&O x4. Coherent. Thoughts/Psych: Normal thought pattern. Appropriate mood and affect. Good judgement and insight Skin Exam: Normal inspection. Normal color. Warm. 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 fistula - CT abdomen pelvis showed air within the urinary bladder raising question for a colovesical fistula - surgery on board- ordered cystogram, urology consultation for possible cystoscopy if cystogram is equivocal- due on 03/01/2025 - IV antibiotics ceftriaxone - blood culture- staph epidermidis, repeat blood culture ordered - urine culture - E coli - soft mechanical diet # Acute Microcytic hypochromic anemia s/p 3 pRBCc # Probable Anemia of chronic disease # Rule out GI bleed - 3 unit PRBC - monitor hemoglobin and keep above 7 - stool occult blood negative - repeat UA showed 2+ blood # Severe Constipation # Hiatal hernia # GERD - IV Protonix 40 mg daily - MiraLax and senna # Acute on chronic hypoxic respiratory failure # COPD - duo nebs q.6 hours - keep saturation between 88-92% # HFpEF with EF 55% # Probable pulmonary hypertension # Hypertensive heart disease - echo from October 2023 showed LVEF 55% to with the RVSP 38 mmHg - repeat echo- LVEF 65%, severe septal hypertrophy - metoprolol 25 mg p.o. b.i.d. and lisinopril 10 mg p.o. 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 Escalera Plan discussed with: Patient My Orders My Orders Orders - SHAMAR ELLISON Procedure Category Date Status Time Blood Culture MONICA 03/01/25 In Process 04:00 Metoprolol Xl PHA 03/01/25 In Process Succinate (Toprol Xl) 22:00 Date of Service: Mar 01, 2025 Billing Provider: LATIA ESCALERA MD Common Visit Codes: [id number] INP/OBS CARE(HIGH) SHAMAR ELLISON Mar 01, 2025 16:44 LATIA ESCALERA MD Mar 02, 2025 01:30
[2025-03-01] MEDS: METOPROLOL SUCCINATE XL 50 MG TAB PO SCH (21:57)
[2025-03-02] VITALS (9 sets, daily range): BP systolic 129–155; BP diastolic 66–89; PULSE 77–105; RESP 16–22; TEMP 97–99.1; O2SAT 92–100
[2025-03-02 06:03] LABS: Chloride 107 mmol/L (98-107); Potassium 5.0 mmol/L (3.5-5.1); Sodium 142 mmol/L (136-145)
[2025-03-02 06:04] LABS: Anion Gap 9 (5-15); Carbon Dioxide 26 mmol/L (20-31)
[2025-03-02 06:06] LABS: Calcium 8.6 mg/dL (8.7-10.4)
[2025-03-02 06:08] LABS: Mean Corpuscular Hemoglobin 23.2 pg (28.0-32.0); Nucleated Red Blood Cells % 0.0 %
[2025-03-02 06:09] LABS: BUN/Creatinine Ratio 15.0 (10.0-20.0); Blood Urea Nitrogen 18 mg/dL (9-23); Glucose 90 mg/dL (74-106)
[2025-03-02 06:11] LABS: Hematocrit 33.2 % (36.0-46.0); Hemoglobin 10.5 g/dL (12.2-16.2); Mean Corpuscular Volume 73.3 fL (80.0-100.0)
[2025-03-02] MEDS: SODIUM CHLORIDE 0.9% 250 ML IV ONE ×2 (07:30→16:30)
[2025-03-02] MEDS: LISINOPRIL 5 MG TAB PO SCH (09:22)
[2025-03-02] MEDS: PANTOPRAZOLE 40 MG TAB PO ONE (09:25)
[2025-03-02] MEDS ORDERED: LISINOPRIL 5 MG TAB PO SCH (10:00)
--- NOTE | 2025-03-02 12:08 | DVHPN2 ---
Progress Note - Surgical Date Seen: Mar 02, 2025 Post op day Post op day: 0 Subjective Patient reports: No new complaints, Other (Assuming care for Dr. Jarrett) Review of Systems: Deferred Objective Vital signs Vital Sign Date Time Temp Pulse Resp B/P (MAP) Pulse Ox O2 Delivery O2 Flow Rate FiO2 03/02/25 09:22 135/81 03/02/25 09:22 85 03/02/25 09:00 98.1 16 97 98.1 03/01/25 20:00 Nasal Cannula* 2 28 Total Intake and Output 03/01/25 03/01/25 03/02/25 15:00 23:00 07:00 Intake Total 50 ml 700 ml 125 ml Output Total 750 ml 625 ml Balance 50 ml -50 ml -500 ml Medications Current Medications Medications Dose Ordered Sig/Luis Route Start Time Stop Time Status Last Admin Dose Admin Divalproex Sodium 750 mg BID PO 02/24/25 22:00 03/02/25 09:21 750 MG Diagnostic Test (Pha) 1 strip IQ4HR 02/24/25 20:00 03/02/25 11:48 1 STRIP Insulin Human Regular IQ4HR SC 02/24/25 20:00 02/25/25 16:20 3 UNITS Dextrose 50 ml UD PRN IV 02/24/25 18:15 02/26/25 12:42 50 ML Polyethylene Glycol 17 gm DAILY PO 02/25/25 10:00 03/01/25 09:43 17 GM Sennosides 17.2 mg HS PO 02/24/25 22:00 03/01/25 21:46 17.2 MG Albuterol 1.25 mg Q4HPRN PRN NEB 02/25/25 15:30 Cancel Ipratropium [place] 0.5 mg Q4HPRN PRN NEB 02/25/25 15:30 Cancel Aspirin 81 mg DAILY PO 02/26/25 10:00 03/02/25 09:21 81 MG Atorvastatin Calcium 40 mg HS PO 02/25/25 22:00 03/01/25 21:45 40 MG Acetaminophen 650 mg Q6HP PRN PO 02/26/25 01:00 02/27/25 18:03 650 MG Ceftriaxone Sodium 50 ml @ 100 mls/hr DAILY@09 IV 03/01/25 09:00 03/02/25 09:21 100 MLS/HR Metoprolol Succinate 25 mg BID PO 03/01/25 22:00 03/02/25 09:22 25 MG Lisinopril 5 mg DAILY PO 03/02/25 10:00 03/02/25 09:22 5 MG Pantoprazole Sodium 40 mg DAILY@0600 PO 03/03/25 06:00 Laboratory Laboratory Tests 03/02/25 05:38 Test 03/02/25 05:38 Range/Units Serum Glucose 90 74-106 mg/dL Microbiology Date/Time Source Procedure Growth Status 03/01/25 06:15 Blood Blood Culture - Preliminary NO GROWTH AFTER 24 HOURS OF INCUBATION. Resulted 02/25/25 08:15 Urine - Lanza Port Urine Culture - Final Escherichia coli Complete Examination: GENERAL:Normal, ABDOMEN:Normal (Nondistended, soft, depressible, nontender) Labs and/or images reviewed: Labs reviewed by me (Leukocytosis to 11.4) Problem List/Assessment/Plan Assessment and Plan Mrs. Gambino is a 75-year-old female was consulted to surgery due to a possible colovesical fistula show no CT from admission day. Patient had repeat CT with IV contrast and delayed images which does not show a colovesical fistula. She does have extensive sigmoid diverticulosis. I also reviewed a CT from November 21, 2023 which showed the same findings and exactly the same concerns. Patient does have a UTI due to E coli. Given there is no colovesical fistula, no surgical intervention is needed. Recommend obtaining a outpatient colonoscopy if she is due for 1. I will sign off, please call with any questions or concerns. Plan discussed with Plan discussed with: Patient Visit Coding Surgery Date of Service if different f: Mar 02, 2025 Billing Provider: JEAN AMAAY MD Surgery Visit Codes: [id number] INP/OBS CARE(HIGH) JEAN AMAYA MD Mar 02, 2025 12:08
--- NOTE | 2025-03-02 17:57 | DVHPN2 ---
Progress Note Date Seen: Mar 02, 2025 Resident Creating Document: BRENNON LEON RESIDENT Medical Necessity Reason Pt with a Central, PICC or Fol: No The following are medically ne: Central Line, Lanza Catheter Subjective Patient reports: No new complaints Objective vital signs Vital Sign Date Time Temp Pulse Resp B/P (MAP) Pulse Ox O2 Delivery O2 Flow Rate FiO2 03/02/25 13:00 97.0 77 16 152/80 (104) 96 97.0 03/02/25 10:00 Nasal Cannula* 2 28 Total Intake and Output 03/01/25 03/01/25 03/02/25 15:00 23:00 07:00 Intake Total 50 ml 700 ml 125 ml Output Total 750 ml 625 ml Balance 50 ml -50 ml -500 ml medications Current Medications Medications Dose Ordered Sig/Luis Route Start Time Stop Time Status Last Admin Dose Admin Divalproex Sodium 750 mg BID PO 02/24/25 22:00 03/02/25 09:21 750 MG Diagnostic Test (Pha) 1 strip IQ4HR 02/24/25 20:00 03/02/25 16:24 1 STRIP Insulin Human Regular IQ4HR SC 02/24/25 20:00 02/25/25 16:20 3 UNITS Dextrose 50 ml UD PRN IV 02/24/25 18:15 02/26/25 12:42 50 ML Polyethylene Glycol 17 gm DAILY PO 02/25/25 10:00 03/01/25 09:43 17 GM Sennosides 17.2 mg HS PO 02/24/25 22:00 03/01/25 21:46 17.2 MG Albuterol 1.25 mg Q4HPRN PRN NEB 02/25/25 15:30 Cancel Ipratropium [place] 0.5 mg Q4HPRN PRN NEB 02/25/25 15:30 Cancel Aspirin 81 mg DAILY PO 02/26/25 10:00 03/02/25 09:21 81 MG Atorvastatin Calcium 40 mg HS PO 02/25/25 22:00 03/01/25 21:45 40 MG Acetaminophen 650 mg Q6HP PRN PO 02/26/25 01:00 02/27/25 18:03 650 MG Ceftriaxone Sodium 50 ml @ 100 mls/hr DAILY@09 IV 03/01/25 09:00 03/02/25 09:21 100 MLS/HR Metoprolol Succinate 25 mg BID PO 03/01/25 22:00 03/02/25 09:22 25 MG Lisinopril 5 mg DAILY PO 03/02/25 10:00 03/02/25 09:22 5 MG Pantoprazole Sodium 40 mg DAILY@0600 PO 03/03/25 06:00 Examination Patient lying in bed, in no acute distress General: Obese, afebrile, palor, mucosae are moist Cardiovascular: Regular S1 and S2. No murmurs, gallops or rubs. No JVD elevation. No pedal edema Respiratory: Normal B/L air entry on room air. Clear lung sounds on auscultation Abdomen: Soft, nontender, nondistended, normoactive bowel sounds, no rebound tenderness, no organomegaly, no masses Genitourinary: Deferred MSK/skin: Mobilizes 4 limbs. Skin is dry and warm Neurological: No motor, no sensitive deficits, normal speech. Pupils are isocoric and reactive. Psych/Mental Status: A/Ox3 laboratory and microbiology Laboratory Tests 03/02/25 05:38 Test 03/02/25 05:38 Range/Units Serum Glucose 90 74-106 mg/dL Microbiology Date/Time Source Procedure Growth Status 03/01/25 06:15 Blood Blood Culture - Preliminary NO GROWTH AFTER 24 HOURS OF INCUBATION. Resulted 02/25/25 08:15 Urine - Lanza Port Urine Culture - Final Escherichia coli Complete Labs and/or images reviewed: Labs reviewed by me, Image(s) reviewed by me Problem List/Assessment/Plan Problem List/Assessment/Plan Acute colovesical fistula Acute cystitis secondary to above Anemia likely microcytic status post 3 RBC Heart failure with preserved ejection fraction Pulmonary hypertension Morbid obesity CT SCAN ABD PELVIS 1. 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 Retrocardiac hiatal hernia as on previous exam. 3. Recommend study be repeated with IV and oral contrast Plan/Recommendation Stool occult negative. Patient denies having lifetime colonoscopy. Patient will benefit from colonoscopy as outpatient, continue conservative management for now. Follow up with the surgeon and Urology. Monitor H&H Protonix 40 mg daily Recommend Urology evaluation Continue IV antibiotics, follow up with cultures Plan discussed with patient in which all questions have been answered Case discussed with Dr. Macho Plan discussed with: Patient Dietary Evaluation Review Comments: 1. Mechanical soft Diet 2. Encourage and Monitor PO intakes to meet at least 75% of her needs 3. Offer Ensure High Protein 240ml PO supplements bid if PO intake<50% Expected Outcomes/Goals: Recovered GI function, gradaul wt loss BRENNON LEON RESIDENT Mar 02, 2025 17:57
--- NOTE | 2025-03-02 18:44 | DVHPNRES ---
Progress Note Date Seen: Mar 02, 2025 Resident Creating Document: SHAMAR ELLISON RESIDENT Medical Necessity Reason Pt with a Central, PICC or Fol: No The following are medically ne: Central Line, Lanza Catheter Subjective Review of Systems Rafia Gambino is a 75-year old female past medical history of CKD was on hemodialysis for 1 month, CVA x2, COPD on home oxygen as needed, HFpEF, C diff colitis who was brought to the ED from her daycare after she was reported to be vomiting. History was elicited from the patient and her daughter Cedric. They mentioned that the patient started having cough while eating since 2-3 weeks, and had episodes of vomiting on and off. The patient also reported that she has had decreased appetite since the last 1-2 months. He also reported having abdominal pain all over, rated as 6/10 in intensity, more in the epigastric area. CT abdomen/pelvis revealed a colovesical fistula for which surgical consult was placed. Surgeon recommended cystogram and evaluation by Urology for possible cystoscopy if cystogram is equivocal. Past medical history: CKD, CVA x2, COPD on home oxygen as needed, HFpEF, C diff colitis Past surgical history: Denies Social & Personal history: Lives at home with family, 40 pack-year smoking history, history of heavy alcohol use, history of marijuana use Home medications: Aspirin 81, divalproex 750 b.i.d., donepezil 10 mg, Lasix 20 mg b.i.d., losartan 25 mg daily, metoprolol tartrate 25 b.i.d., triamterene + hydrochlorothiazide Allergies: No known allergy Patient seen and examined at bedside. Patient is alert and oriented to time, place person and responding to all questions. Eyes: No Pain, No Vision change, No Conjunctivae inflammation, No Eyelid inflammation, No Redness ENT: No Ear pain, No Ear discharge, No Nose pain, No Nose discharge, No Nose congestion, No Mouth pain, No Mouth swelling, No Throat pain, No Throat swelling Cardiovascular: No Chest Pain, No Palpitations, No Orthopnea, No Paroxysmal No Dyspnea, No Edema, No Lt Headedness Respiratory: No Cough, No Dry, No Shortness of breath, No SOB with exertion, No Wheezing, No Hemoptysis, No Pleuritic Pain, No Sputum Gastrointestinal: No Nausea, No Vomiting, Abdominal Pain, No Diarrhea, No Constipation, No Melena, No Hematochezia Genitourinary: No Dysuria, No Frequency, No Incontinence, No Hematuria, No Retention 02/26/25- The patient was seen and evaluated at bedside. Last night her hemoglobin dropped to 5.6, after which he was given 2 units of PRBC and repeat H and H was ordered. The patient has been refusing blood draw for CBC and BMP today. The patient was explained about the importance of the lab work and she demonstrated understanding of the same. We are pending the results of the blood work. GI was consulted and they recommended monitoring H&H and transfusing as needed, and surgical follow up for colovesical fistula. We are pending cystogram for the patient for evaluation of the colovesical fistula, which could be the source of bleeding, but Radiology Services will be available on Saturday. She was started on meropenem. Her blood sugar level was 57, so she was started on D5 W drip at 30 mL/hour, which will be stopped if blood sugar level is more than 180 on Accu-Chek. Blood culture came back positive for g positive cocci in clusters and SOB was negative. The patient had 1 bowel movement yesterday. She was given morphine 1 g IV for abdominal pain. 02/27/25-the patient was seen at bedside today. All labs and charts were reviewed. We will continue with the same management. 02/28/25- the patient was seen and evaluated at bedside. Hemoglobin today 10.5. Urine culture came back positive for E coli. Meropenem was discontinued and patient was started on ceftriaxone. D5W was discontinued . Her home medication amlodipine 10 mg p.o. daily and metoprolol 25 mg p.o. daily were resumed. The patient has been refusing labs and Accu-Cheks, despite being educated about importance of these. 03/01/25- patient was seen at bedside today. She was weaned off the oxygen today and will be observed for any shortness of breath. Repeat abdomen CT showed no colovesical fistula. Surgery was consulted for repeat evaluation. She was started on metoprolol and lisinopril. 03/02/25- the patient was evaluated at bedside today. White Count today was 11.4. Physical therapy request for service was ordered. Surgery evaluated the patient and after reviewing the images mentioned there is no colovesical fistula, so they signed off. GI evaluated the patient and recommended outpatient colonoscopy after discharge. Objective vital signs Vital Sign Date Time Temp Pulse Resp B/P (MAP) Pulse Ox O2 Delivery O2 Flow Rate FiO2 03/02/25 17:00 98.3 96 18 155/89 (111) 95 98.3 03/02/25 10:00 Nasal Cannula* 2 28 Total Intake and Output 03/01/25 03/01/25 03/02/25 15:00 23:00 07:00 Intake Total 50 ml 700 ml 125 ml Output Total 750 ml 625 ml Balance 50 ml -50 ml -500 ml medications Current Medications Medications Dose Ordered Sig/Luis Route Start Time Stop Time Status Last Admin Dose Admin Divalproex Sodium 750 mg BID PO 02/24/25 22:00 03/02/25 09:21 750 MG Diagnostic Test (Pha) 1 strip IQ4HR 02/24/25 20:00 03/02/25 16:24 1 STRIP Insulin Human Regular IQ4HR SC 02/24/25 20:00 02/25/25 16:20 3 UNITS Dextrose 50 ml UD PRN IV 02/24/25 18:15 02/26/25 12:42 50 ML Polyethylene Glycol 17 gm DAILY PO 02/25/25 10:00 03/01/25 09:43 17 GM Sennosides 17.2 mg HS PO 02/24/25 22:00 03/01/25 21:46 17.2 MG Albuterol 1.25 mg Q4HPRN PRN NEB 02/25/25 15:30 Cancel Ipratropium [place] 0.5 mg Q4HPRN PRN NEB 02/25/25 15:30 Cancel Aspirin 81 mg DAILY PO 02/26/25 10:00 03/02/25 09:21 81 MG Atorvastatin Calcium 40 mg HS PO 02/25/25 22:00 03/01/25 21:45 40 MG Acetaminophen 650 mg Q6HP PRN PO 02/26/25 01:00 02/27/25 18:03 650 MG Ceftriaxone Sodium 50 ml @ 100 mls/hr DAILY@09 IV 03/01/25 09:00 03/02/25 09:21 100 MLS/HR Metoprolol Succinate 25 mg BID PO 03/01/25 22:00 03/02/25 09:22 25 MG Lisinopril 5 mg DAILY PO 03/02/25 10:00 03/02/25 09:22 5 MG Pantoprazole Sodium 40 mg DAILY@0600 PO 03/03/25 06:00 Examination General Appearance: Cooperative. Well developed. Well nourished. NAD. Lanza catheter in place draining clear urine. Head Exam: Normal inspection Neck Exam: Normal inspection. Non-tender. Normal alignment Pulmonary/Respiratory: Chest non-tender. bilateral decreased breath sounds, no crackles, no wheezing. Cardiovascular/Chest: Regular rate and rhythm. No murmurs. No JVD. Peripheral Pulses: 2+ Radial (R). 2+ Radial (L). 2+ Pedal (R). 2+ Pedal (L) Abdominal Exam: Normal bowel sounds. Soft. normal abdomen, no visible veins, tenderness to palpation in epigastric area. No hepatospenomegaly. No masses Ankle Exam: Negative ankle edema Lower extremities: Negative lower extremity edema Neuro/Mental Status: A&O x4. Coherent. Thoughts/Psych: Normal thought pattern. Appropriate mood and affect. Good judgement and insight Skin Exam: Normal inspection. Normal color. Warm. Dry laboratory and microbiology Laboratory Tests 03/02/25 05:38 Test 03/02/25 05:38 Range/Units Serum Glucose 90 74-106 mg/dL Microbiology Date/Time Source Procedure Growth Status 03/01/25 06:15 Blood Blood Culture - Preliminary NO GROWTH AFTER 24 HOURS OF INCUBATION. Resulted 02/25/25 08:15 Urine - Lanza Port Urine Culture - Final Escherichia coli Complete Labs and/or images reviewed: Labs reviewed by me, Image(s) reviewed by me Problem List/Assessment/Plan Problem List/Assessment/Plan # Sepsis likely due to UTI # Probable Colovesical fistula - CT abdomen pelvis showed air within the urinary bladder raising question for a colovesical fistula - surgery on board- ordered cystogram, shows no colovesical fistula, surgery signed off - IV antibiotics ceftriaxone - blood culture- staph epidermidis, repeat blood culture ordered - urine culture - E coli - soft mechanical diet # Acute Microcytic hypochromic anemia s/p 3 pRBCc # Probable Anemia of chronic disease # Rule out GI bleed - monitor hemoglobin and keep above 7 - stool occult blood negative - repeat UA showed 2+ blood # Severe Constipation # Hiatal hernia # GERD - IV Protonix 40 mg daily - MiraLax and senna # Acute on chronic hypoxic respiratory failure # COPD - duo nebs q.6 hours - keep saturation between 88-92% # HFpEF with EF 55% # Probable pulmonary hypertension # Hypertensive heart disease - echo from October 2023 showed LVEF 55% to with the RVSP 38 mmHg - repeat echo- LVEF 65%, severe septal hypertrophy - metoprolol 25 mg p.o. b.i.d. and lisinopril 5 mg p.o. 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 Ventura Plan discussed with: Patient Dietary Evaluation Review Comments: 1. Mechanical soft Diet 2. Encourage and Monitor PO intakes to meet at least 75% of her needs 3. Offer Ensure High Protein 240ml PO supplements bid if PO intake<50% Expected Outcomes/Goals: Recovered GI function, gradaul wt loss Visit Coding STANDARD RES Billing Provider: LIBBY VENTURA MD Date of Service if different f: Mar 02, 2025 Common Visit Codes: [id number] INP/OBS CARE(HIGH) SHAMAR ELLISON RESIDENT Mar 02, 2025 18:44
[2025-03-03] VITALS (9 sets, daily range): BP systolic 100–152; BP diastolic 52–91; PULSE 58–94; RESP 16–20; TEMP 97.4–100.1; O2SAT 91–97
[2025-03-03] MEDS: PANTOPRAZOLE 40 MG TAB PO SCH (06:03)
[2025-03-03 07:43] LABS: Hematocrit 32.8 % (36.0-46.0); Mean Corpuscular Hemoglobin 23.4 pg (28.0-32.0)
[2025-03-03 07:45] LABS: Hemoglobin 10.3 g/dL (12.2-16.2); Mean Corpuscular Volume 74.0 fL (80.0-100.0); Nucleated Red Blood Cells % 0.0 %
[2025-03-03 07:50] LABS: Potassium 4.8 mmol/L (3.5-5.1); Sodium 145 mmol/L (136-145)
[2025-03-03 07:51] LABS: Anion Gap 9 (5-15); Carbon Dioxide 27 mmol/L (20-31)
[2025-03-03 07:56] LABS: Glucose 83 mg/dL (74-106)
[2025-03-03 07:57] LABS: BUN/Creatinine Ratio 15.2 (10.0-20.0); Blood Urea Nitrogen 20 mg/dL (9-23)
[2025-03-03 07:58] LABS: Calcium 8.5 mg/dL (8.7-10.4); Chloride 109 mmol/L (98-107)
[2025-03-03 08:25] LABS: Anisocytosis Moderate
[2025-03-03] MEDS ORDERED: SODIUM CHLORIDE 0.9% 500 ML IV ONE (08:45)
--- NOTE | 2025-03-03 17:27 | DVHPN2 ---
Progress Note Date Seen: Mar 03, 2025 Resident Creating Document: BRENNON LEON RESIDENT Medical Necessity Reason Pt with a Central, PICC or Fol: No The following are medically ne: Central Line, Lanza Catheter Subjective Patient reports: No new complaints Objective vital signs Vital Sign Date Time Temp Pulse Resp B/P (MAP) Pulse Ox O2 Delivery O2 Flow Rate FiO2 03/03/25 16:26 97.4 94 18 136/91 (106) 95 97.4 03/03/25 07:30 Nasal Cannula* 2 28 Total Intake and Output 03/02/25 03/02/25 03/03/25 15:00 23:00 07:00 Intake Total 300 ml 350 ml 400 ml Output Total 700 ml 425 ml Balance 300 ml -350 ml -25 ml medications Current Medications Medications Dose Ordered Sig/Luis Route Start Time Stop Time Status Last Admin Dose Admin Divalproex Sodium 750 mg BID PO 02/24/25 22:00 03/03/25 10:00 750 MG Diagnostic Test (Pha) 1 strip IQ4HR 02/24/25 20:00 03/03/25 12:00 1 STRIP Insulin Human Regular IQ4HR SC 02/24/25 20:00 02/25/25 16:20 3 UNITS Dextrose 50 ml UD PRN IV 02/24/25 18:15 02/26/25 12:42 50 ML Polyethylene Glycol 17 gm DAILY PO 02/25/25 10:00 03/01/25 09:43 17 GM Sennosides 17.2 mg HS PO 02/24/25 22:00 03/02/25 22:47 17.2 MG Albuterol 1.25 mg Q4HPRN PRN NEB 02/25/25 15:30 Cancel Ipratropium [place] 0.5 mg Q4HPRN PRN NEB 02/25/25 15:30 Cancel Aspirin 81 mg DAILY PO 02/26/25 10:00 03/03/25 10:00 81 MG Atorvastatin Calcium 40 mg HS PO 02/25/25 22:00 03/02/25 22:47 40 MG Acetaminophen 650 mg Q6HP PRN PO 02/26/25 01:00 02/27/25 18:03 650 MG Ceftriaxone Sodium 50 ml @ 100 mls/hr DAILY@09 IV 03/01/25 09:00 03/03/25 09:00 100 MLS/HR Metoprolol Succinate 25 mg BID PO 03/01/25 22:00 03/02/25 22:48 25 MG Lisinopril 5 mg DAILY PO 03/02/25 10:00 03/02/25 09:22 5 MG Pantoprazole Sodium 40 mg DAILY@0600 PO 03/03/25 06:00 03/03/25 06:03 40 MG Examination Patient lying in bed, in no acute distress General: Obese, afebrile, palor, mucosae are moist Cardiovascular: Regular S1 and S2. No murmurs, gallops or rubs. No JVD elevation. No pedal edema Respiratory: Normal B/L air entry on room air. Clear lung sounds on auscultation Abdomen: Soft, nontender, nondistended, normoactive bowel sounds, no rebound tenderness, no organomegaly, no masses Genitourinary: Deferred MSK/skin: Mobilizes 4 limbs. Skin is dry and warm Neurological: No motor, no sensitive deficits, normal speech. Pupils are isocoric and reactive. Psych/Mental Status: A/Ox3 laboratory and microbiology Laboratory Tests 03/03/25 07:30 Test 03/03/25 07:30 Range/Units Serum Glucose 83 74-106 mg/dL Microbiology Date/Time Source Procedure Growth Status 03/01/25 06:15 Blood Blood Culture - Preliminary NO GROWTH AFTER 48 HOURS OF INCUBATION. Resulted 02/25/25 08:15 Urine - Lanza Port Urine Culture - Final Escherichia coli Complete Labs and/or images reviewed: Labs reviewed by me, Image(s) reviewed by me Problem List/Assessment/Plan Problem List/Assessment/Plan Acute colovesical fistula Acute cystitis secondary to above Anemia likely microcytic status post 3 RBC Heart failure with preserved ejection fraction Pulmonary hypertension Morbid obesity CT SCAN ABD PELVIS 1. 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 Retrocardiac hiatal hernia as on previous exam. 3. Recommend study be repeated with IV and oral contrast Plan/Recommendation Stool occult negative. Patient denies having lifetime colonoscopy. Patient will benefit from colonoscopy as outpatient, continue conservative management for now. Follow up with the surgeon and Urology. Continues soft diet, stable to be discharged from GI standpoint. Monitor H&H Protonix 40 mg daily Recommend Urology evaluation Continue IV antibiotics, follow up with cultures Plan discussed with patient in which all questions have been answered Case discussed with Dr. Pritchard Plan discussed with: Patient Dietary Evaluation Review Comments: 1. Mechanical soft Diet 2. Encourage and Monitor PO intakes to meet at least 75% of her needs 3. Offer Ensure High Protein 240ml PO supplements bid if PO intake<50% Expected Outcomes/Goals: Recovered GI function, gradaul wt loss BRENNON LEON RESIDENT Mar 03, 2025 17:27
--- NOTE | 2025-03-03 18:18 | DVHPNRES ---
Progress Note Date Seen: Mar 03, 2025 Resident Creating Document: SHAMAR ELLISON RESIDENT Medical Necessity Reason Pt with a Central, PICC or Fol: No The following are medically ne: Central Line, Lanza Catheter Subjective Review of Systems Rafia Gambino is a 75-year old female past medical history of CKD was on hemodialysis for 1 month, CVA x2, COPD on home oxygen as needed, HFpEF, C diff colitis who was brought to the ED from her daycare after she was reported to be vomiting. History was elicited from the patient and her daughter Cedric. They mentioned that the patient started having cough while eating since 2-3 weeks, and had episodes of vomiting on and off. The patient also reported that she has had decreased appetite since the last 1-2 months. He also reported having abdominal pain all over, rated as 6/10 in intensity, more in the epigastric area. CT abdomen/pelvis revealed a colovesical fistula for which surgical consult was placed. Surgeon recommended cystogram and evaluation by Urology for possible cystoscopy if cystogram is equivocal. Past medical history: CKD, CVA x2, COPD on home oxygen as needed, HFpEF, C diff colitis Past surgical history: Denies Social & Personal history: Lives at home with family, 40 pack-year smoking history, history of heavy alcohol use, history of marijuana use Home medications: Aspirin 81, divalproex 750 b.i.d., donepezil 10 mg, Lasix 20 mg b.i.d., losartan 25 mg daily, metoprolol tartrate 25 b.i.d., triamterene + hydrochlorothiazide Allergies: No known allergy Patient seen and examined at bedside. Patient is alert and oriented to time, place person and responding to all questions. Eyes: No Pain, No Vision change, No Conjunctivae inflammation, No Eyelid inflammation, No Redness ENT: No Ear pain, No Ear discharge, No Nose pain, No Nose discharge, No Nose congestion, No Mouth pain, No Mouth swelling, No Throat pain, No Throat swelling Cardiovascular: No Chest Pain, No Palpitations, No Orthopnea, No Paroxysmal No Dyspnea, No Edema, No Lt Headedness Respiratory: No Cough, No Dry, No Shortness of breath, No SOB with exertion, No Wheezing, No Hemoptysis, No Pleuritic Pain, No Sputum Gastrointestinal: No Nausea, No Vomiting, Abdominal Pain, No Diarrhea, No Constipation, No Melena, No Hematochezia Genitourinary: No Dysuria, No Frequency, No Incontinence, No Hematuria, No Retention 02/26/25- The patient was seen and evaluated at bedside. Last night her hemoglobin dropped to 5.6, after which he was given 2 units of PRBC and repeat H and H was ordered. The patient has been refusing blood draw for CBC and BMP today. The patient was explained about the importance of the lab work and she demonstrated understanding of the same. We are pending the results of the blood work. GI was consulted and they recommended monitoring H&H and transfusing as needed, and surgical follow up for colovesical fistula. We are pending cystogram for the patient for evaluation of the colovesical fistula, which could be the source of bleeding, but Radiology Services will be available on Saturday. She was started on meropenem. Her blood sugar level was 57, so she was started on D5 W drip at 30 mL/hour, which will be stopped if blood sugar level is more than 180 on Accu-Chek. Blood culture came back positive for g positive cocci in clusters and SOB was negative. The patient had 1 bowel movement yesterday. She was given morphine 1 g IV for abdominal pain. 02/27/25-the patient was seen at bedside today. All labs and charts were reviewed. We will continue with the same management. 02/28/25- the patient was seen and evaluated at bedside. Hemoglobin today 10.5. Urine culture came back positive for E coli. Meropenem was discontinued and patient was started on ceftriaxone. D5W was discontinued . Her home medication amlodipine 10 mg p.o. daily and metoprolol 25 mg p.o. daily were resumed. The patient has been refusing labs and Accu-Cheks, despite being educated about importance of these. 03/01/25- patient was seen at bedside today. She was weaned off the oxygen today and will be observed for any shortness of breath. Repeat abdomen CT showed no colovesical fistula. Surgery was consulted for repeat evaluation. She was started on metoprolol and lisinopril. 03/02/25- the patient was evaluated at bedside today. White Count today was 11.4. Physical therapy request for service was ordered. Surgery evaluated the patient and after reviewing the images mentioned there is no colovesical fistula, so they signed off. GI evaluated the patient and recommended outpatient colonoscopy after discharge. 03/03/25- Patient was seen at bedside today. He had a temperature of 100.1 overnight. Midline was placed for IV antibiotics. Family will be called to discuss regarding discharge plan. Objective vital signs Vital Sign Date Time Temp Pulse Resp B/P (MAP) Pulse Ox O2 Delivery O2 Flow Rate FiO2 03/03/25 16:26 97.4 94 18 136/91 (106) 95 97.4 03/03/25 07:30 Nasal Cannula* 2 28 Total Intake and Output 03/02/25 03/02/25 03/03/25 15:00 23:00 07:00 Intake Total 300 ml 350 ml 400 ml Output Total 700 ml 425 ml Balance 300 ml -350 ml -25 ml medications Current Medications Medications Dose Ordered Sig/Luis Route Start Time Stop Time Status Last Admin Dose Admin Divalproex Sodium 750 mg BID PO 02/24/25 22:00 03/03/25 10:00 750 MG Diagnostic Test (Pha) 1 strip IQ4HR 02/24/25 20:00 03/03/25 12:00 1 STRIP Insulin Human Regular IQ4HR SC 02/24/25 20:00 02/25/25 16:20 3 UNITS Dextrose 50 ml UD PRN IV 02/24/25 18:15 02/26/25 12:42 50 ML Polyethylene Glycol 17 gm DAILY PO 02/25/25 10:00 03/01/25 09:43 17 GM Sennosides 17.2 mg HS PO 02/24/25 22:00 03/02/25 22:47 17.2 MG Albuterol 1.25 mg Q4HPRN PRN NEB 02/25/25 15:30 Cancel Ipratropium [place] 0.5 mg Q4HPRN PRN NEB 02/25/25 15:30 Cancel Aspirin 81 mg DAILY PO 02/26/25 10:00 03/03/25 10:00 81 MG Atorvastatin Calcium 40 mg HS PO 02/25/25 22:00 03/02/25 22:47 40 MG Acetaminophen 650 mg Q6HP PRN PO 02/26/25 01:00 02/27/25 18:03 650 MG Ceftriaxone Sodium 50 ml @ 100 mls/hr DAILY@09 IV 03/01/25 09:00 03/03/25 09:00 100 MLS/HR Metoprolol Succinate 25 mg BID PO 03/01/25 22:00 03/02/25 22:48 25 MG Lisinopril 5 mg DAILY PO 03/02/25 10:00 03/02/25 09:22 5 MG Pantoprazole Sodium 40 mg DAILY@0600 PO 03/03/25 06:00 03/03/25 06:03 40 MG Examination General Appearance: Cooperative. Well developed. Well nourished. NAD. Lanza catheter in place draining clear urine. Head Exam: Normal inspection Neck Exam: Normal inspection. Non-tender. Normal alignment Pulmonary/Respiratory: Chest non-tender. bilateral decreased breath sounds, no crackles, no wheezing. Cardiovascular/Chest: Regular rate and rhythm. No murmurs. No JVD. Peripheral Pulses: 2+ Radial (R). 2+ Radial (L). 2+ Pedal (R). 2+ Pedal (L) Abdominal Exam: Normal bowel sounds. Soft. normal abdomen, no visible veins, tenderness to palpation in epigastric area. No hepatospenomegaly. No masses Ankle Exam: Negative ankle edema Lower extremities: Negative lower extremity edema Neuro/Mental Status: A&O x4. Coherent. Thoughts/Psych: Normal thought pattern. Appropriate mood and affect. Good judgement and insight Skin Exam: Normal inspection. Normal color. Warm. Dry laboratory and microbiology Laboratory Tests 03/03/25 07:30 Test 03/03/25 07:30 Range/Units Serum Glucose 83 74-106 mg/dL Microbiology Date/Time Source Procedure Growth Status 03/01/25 06:15 Blood Blood Culture - Preliminary NO GROWTH AFTER 48 HOURS OF INCUBATION. Resulted 02/25/25 08:15 Urine - [place] Urine Culture - Final Escherichia coli Complete Labs and/or images reviewed: Labs reviewed by me, Image(s) reviewed by me Problem List/Assessment/Plan Problem List/Assessment/Plan # Sepsis likely due to UTI # Probable Colovesical fistula - CT abdomen pelvis showed air within the urinary bladder raising question for a colovesical fistula - surgery on board- ordered cystogram, shows no colovesical fistula, surgery signed off - IV antibiotics ceftriaxone, midli - blood culture- staph epidermidis, repeat blood culture ordered - urine culture - E coli - soft mechanical diet # Acute Microcytic hypochromic anemia s/p 3 pRBCc # Probable Anemia of chronic disease # Rule out GI bleed - monitor hemoglobin and keep above 7 - stool occult blood negative - repeat UA showed 2+ blood # Severe Constipation # Hiatal hernia # GERD - IV Protonix 40 mg daily - MiraLax and senna # Acute on chronic hypoxic respiratory failure # COPD - duo nebs q.6 hours - keep saturation between 88-92% # HFpEF with EF 55% # Probable pulmonary hypertension # Hypertensive heart disease - echo from October 2023 showed LVEF 55% to with the RVSP 38 mmHg - repeat echo- LVEF 65%, severe septal hypertrophy - metoprolol 25 mg p.o. b.i.d. and lisinopril 5 mg p.o. 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 Ventura Plan discussed with: Patient My Orders My Orders Orders - SHAMAR ELLISON RESIDENT Procedure Category Date Status Time Insert Midline ORDERS 03/03/25 Transmitted 11:43 Dietary Evaluation Review Comments: 1. Mechanical soft Diet 2. Encourage and Monitor PO intakes to meet at least 75% of her needs 3. Offer Ensure High Protein 240ml PO supplements bid if PO intake<50% Expected Outcomes/Goals: Recovered GI function, gradaul wt loss Visit Coding STANDARD RES Billing Provider: LIBBY VENTURA MD Date of Service if different f: Mar 03, 2025 Common Visit Codes: [id number] INP/OBS CARE(HIGH) SHAMAR ELLISON RESIDENT Mar 03, 2025 18:18
[2025-03-04] VITALS (8 sets, daily range): BP systolic 108–151; BP diastolic 57–91; PULSE 74–87; RESP 17–19; TEMP 97.6–98.4; O2SAT 90–98
[2025-03-04 05:46] LABS: Hemoglobin 9.9 g/dL (12.2-16.2); Nucleated Red Blood Cells % 0.1 %
[2025-03-04 05:48] LABS: Anion Gap 9 (5-15); Carbon Dioxide 26 mmol/L (20-31); Hematocrit 30.8 % (36.0-46.0); Mean Corpuscular Hemoglobin 23.3 pg (28.0-32.0); Mean Corpuscular Volume 72.8 fL (80.0-100.0); Potassium 4.5 mmol/L (3.5-5.1); Sodium 143 mmol/L (136-145)
[2025-03-04 05:54] LABS: BUN/Creatinine Ratio 14.5 (10.0-20.0); Blood Urea Nitrogen 17 mg/dL (9-23); Glucose 88 mg/dL (74-106)
[2025-03-04 05:55] LABS: Calcium 8.4 mg/dL (8.7-10.4); Chloride 108 mmol/L (98-107)
[2025-03-04 06:47] LABS: Anisocytosis Moderate
[2025-03-04 06:48] LABS: Ovalocytes FEW
--- NOTE | 2025-03-04 11:48 | DVHPN2 ---
Progress Note Date Seen: Mar 04, 2025 Resident Creating Document: BRENNON LEON RESIDENT Medical Necessity Reason Pt with a Central, PICC or Fol: No The following are medically ne: Central Line, Lanza Catheter Subjective Patient reports: No new complaints Objective vital signs Vital Sign Date Time Temp Pulse Resp B/P (MAP) Pulse Ox O2 Delivery O2 Flow Rate FiO2 03/04/25 09:12 74 124/70 03/04/25 09:00 97.6 17 96 97.6 03/03/25 20:00 Nasal Cannula* 2 28 Total Intake and Output 03/03/25 03/03/25 03/04/25 15:00 23:00 07:00 Intake Total 1590 ml 400 ml Output Total 450 ml 400 ml Balance 1140 ml 0 ml medications Current Medications Medications Dose Ordered Sig/Luis Route Start Time Stop Time Status Last Admin Dose Admin Divalproex Sodium 750 mg BID PO 02/24/25 22:00 03/04/25 09:10 750 MG Diagnostic Test (Pha) 1 strip IQ4HR 02/24/25 20:00 03/03/25 12:00 1 STRIP Insulin Human Regular IQ4HR SC 02/24/25 20:00 02/25/25 16:20 3 UNITS Dextrose 50 ml UD PRN IV 02/24/25 18:15 02/26/25 12:42 50 ML Polyethylene Glycol 17 gm DAILY PO 02/25/25 10:00 03/01/25 09:43 17 GM Sennosides 17.2 mg HS PO 02/24/25 22:00 03/03/25 21:54 17.2 MG Albuterol 1.25 mg Q4HPRN PRN NEB 02/25/25 15:30 Cancel Ipratropium [place] 0.5 mg Q4HPRN PRN NEB 02/25/25 15:30 Cancel Aspirin 81 mg DAILY PO 02/26/25 10:00 03/04/25 09:09 81 MG Atorvastatin Calcium 40 mg HS PO 02/25/25 22:00 03/03/25 21:55 40 MG Acetaminophen 650 mg Q6HP PRN PO 02/26/25 01:00 02/27/25 18:03 650 MG Ceftriaxone Sodium 50 ml @ 100 mls/hr DAILY@09 IV 03/01/25 09:00 03/04/25 09:05 100 MLS/HR Metoprolol Succinate 25 mg BID PO 03/01/25 22:00 03/04/25 09:12 25 MG Lisinopril 5 mg DAILY PO 03/02/25 10:00 03/04/25 09:11 5 MG Pantoprazole Sodium 40 mg DAILY@0600 PO 03/03/25 06:00 03/04/25 05:44 40 MG Examination Patient lying in bed, in no acute distress General: Obese, afebrile, palor, mucosae are moist Cardiovascular: Regular S1 and S2. No murmurs, gallops or rubs. No JVD elevation. No pedal edema Respiratory: Normal B/L air entry on room air. Clear lung sounds on auscultation Abdomen: Soft, nontender, nondistended, normoactive bowel sounds, no rebound tenderness, no organomegaly, no masses Genitourinary: Deferred MSK/skin: Mobilizes 4 limbs. Skin is dry and warm Neurological: No motor, no sensitive deficits, normal speech. Pupils are isocoric and reactive. Psych/Mental Status: A/Ox3 laboratory and microbiology Laboratory Tests 03/04/25 05:12 Test 03/04/25 05:12 Range/Units Serum Glucose 88 74-106 mg/dL Microbiology Date/Time Source Procedure Growth Status 03/01/25 06:15 Blood Blood Culture - Preliminary NO GROWTH AFTER 72 HOURS OF INCUBATION. Resulted 02/25/25 08:15 Urine - Lanza Port Urine Culture - Final Escherichia coli Complete Labs and/or images reviewed: Labs reviewed by me, Image(s) reviewed by me Problem List/Assessment/Plan Problem List/Assessment/Plan Acute colovesical fistula Acute cystitis secondary to above Anemia likely microcytic status post 3 RBC Heart failure with preserved ejection fraction Pulmonary hypertension Morbid obesity CT SCAN ABD PELVIS 1. 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 Retrocardiac hiatal hernia as on previous exam. 3. Recommend study be repeated with IV and oral contrast Plan/Recommendation Stool occult negative. Patient denies having lifetime colonoscopy. Patient will benefit from colonoscopy as outpatient, continue conservative management for now. Follow up with the surgeon and Urology. Continues soft diet, stable to be discharged from GI standpoint. Monitor H&H Protonix 40 mg daily Recommend Urology evaluation Continue IV antibiotics, follow up with cultures Plan discussed with patient in which all questions have been answered Case discussed with Dr. Pritchard Plan discussed with: Patient Dietary Evaluation Review Comments: 1. Mechanical soft Diet 2. Encourage and Monitor PO intakes to meet at least 75% of her needs 3. Offer Ensure High Protein 240ml PO supplements bid if PO intake<50% Expected Outcomes/Goals: Recovered GI function, gradaul wt loss BRENNON LEON RESIDENT Mar 04, 2025 11:48
[2025-03-04] MEDS ORDERED: POLYETHYLENE GLYCOL 17 GM PWDR PO PRN (16:15)
--- NOTE | 2025-03-04 18:51 | DVHDSRES ---
Discharge Summary Date of Admission Resident Creating Document: SHAMAR ELLISON RESIDENT Feb 24, 2025 at 16:24 Date of Discharge: Mar 04, 2025 Admitting Diagnosis sepsis Labs/Diagnostic Data: Laboratory Results Test 03/04/25 05:12 03/03/25 12:16 03/02/25 05:38 03/01/25 05:57 White Blood Count 8.3 10^3/uL (4.4-10.8) Red Blood Count 4.24 10^6/uL (4.0-5.20) Hemoglobin 9.9 g/dL (12.2-16.2) Hematocrit 30.8 % (36.0-46.0) Mean Corpuscular Volume 72.8 fL (80.0-100.0) Mean Corpuscular Hemoglobin 23.3 pg (28.0-32.0) Mean Corpuscular Hemoglobin Concent 32.0 g/dL (32.0-36.0) Red Cell Distribution Width 27.4 % (11.8-14.3) Platelet Count 319 10^3/uL (140-450) Mean Platelet Volume 8.7 fL (6.9-10.8) Neutrophils (%) (Auto) 77.3 % (37.0-80.0) Lymphocytes (%) (Auto) 9.7 % (10.0-50.0) Monocytes (%) (Auto) 7.6 % (0.0-12.0) Eosinophils (%) (Auto) 4.8 % (0.0-7.0) Basophils (%) (Auto) 0.6 % (0.0-2.0) Neutrophils # (Auto) 6.4 10 ^3/uL (1.6-8.6) Lymphocytes # (Auto) 0.8 10 ^3/uL (0.4-5.4) Monocytes # (Auto) 0.6 10 ^3/uL (0-1.3) Eosinophils # (Auto) 0.4 10 ^3/uL (0-0.8) Basophils # (Auto) 0.1 10 ^3/uL (0-0.2) Nucleated Red Blood Cells 0.1 % Platelet Estimate Adequate Large Platelets Few Hypochromasia (manual) Moderate Anisocytosis (manual) Moderate Microcytosis Moderate Target Cells Few Ovalocytes Few Schistocytes Few Sodium Level 143 mmol/L (136-145) Potassium Level 4.5 mmol/L (3.5-5.1) Chloride Level 108 mmol/L (98-107) Carbon Dioxide Level 26 mmol/L (20-31) Anion Gap 9 (5-15) Blood Urea Nitrogen 17 mg/dL (9-23) Creatinine 1.17 mg/dL (0.550-1.02) Glomerular Filtration Rate Calc 49 mL/min (>90) BUN/Creatinine Ratio 14.5 (10.0-20.0) Serum Glucose 88 mg/dL (74-106) Calcium Level 8.4 mg/dL (8.7-10.4) POC Glucose 116 mg/dl (70-106) Hemoglobin A1c 5.6 % A1C (<5.7) Carcinoembryonic Antigen 0.76 ng/mL (<=5.0) Test 02/28/25 15:22 02/27/25 06:10 02/27/25 00:07 02/26/25 15:27 Random Vancomycin Level 8.8 ug/mL (5-10) Stool Occult Blood Sample #3 Negative (Negative) Lactic Acid Level 0.7 mmol/L (0.4-2.0) Total Bilirubin 0.3 mg/dL (0.2-1.0) Aspartate Amino Transferase (AST) 19 U/L (13-40) Alanine Aminotransferase (ALT) 14 U/L (7-40) Alkaline Phosphatase 150 U/L (46-116) Total Protein 5.6 g/dL (5.7-8.2) Albumin 3.2 g/dL (3.2-4.8) Urine Color Light-yellow (Yellow) Urine Clarity Clear (Clear) Urine pH 5.5 (5.0-9.0) Urine Specific Fine 1.017 (1.001-1.035) Urine Protein Trace (Negative) Urine Ketones Negative (Negative) Urine Blood 2+ /uL (Negative) Urine Nitrite Negative (Negative) Urine Bilirubin Negative (Negative) Urine Urobilinogen Normal mg/dL (Negative) Urine Leukocyte Esterase 2+ /uL (Negative) Urine RBC 94 /hpf (0 - 4) Urine Microscopic WBC 18 /HPF (0-5) Urine Squamous Epithelial Cells Few /hpf (<5) Urine Bacteria Few /hpf (None Seen) Urine Mucus Few (None Seen) Urine Glucose Normal mg/dL (Normal) Test 02/25/25 08:30 02/25/25 03:57 02/25/25 01:29 02/24/25 18:18 Differential Total Cells Counted 100.0 (100) Neutrophils % (Manual) 90 (37.0-80.0) Band Neutrophils % (Manual) 1 Lymphocytes % (Manual) 6 (10.0-50.0) Monocytes % (Manual) 3 (0-12) Eosinophils % (Manual) 0 (0-7) Basophils % (Manual) 0 (0.0-2.0) Metamyelocytes % (manual) 0 Myelocytes % (Manual) 0 Promyelocytes % (Manual) 0 Blast Cells % (Manual) 0 Reactive Lymphocytes 0 Polychromasia Slight Poikilocytosis (manual) Slight Tear Drop Cells Few Stool Occult Blood Negative (Negative) Prothrombin Time 10.6 sec (9.3-11.8) Prothrombin Time INR 1.00 (0.9-1.15) Activated Partial Thromboplast Time 28.0 SEC (24.5-34.5) Influenza Type A Antigen Negative (Negative) Influenza Type B Antigen Negative (Negative) SARS-CoV-2 Antigen (Rapid) Negative (NEGATIVE) Test 02/24/25 13:01 Reticulocyte Count (auto) 3.46 % (0.5-1.5) Direct Bilirubin < 0.1 mg/dL (<0.3) Lactate Dehydrogenase 277 U/L (120-246) Other Laboratory Tests 03/04/25 05:12 Brief Hx & Hospital Course: Rafia Gambino is a 75-year-old female with a significant past medical history of CKD (previously on hemodialysis for one month), two prior CVAs, COPD requiring home oxygen as needed, HFpEF, and prior C. difficile colitis. She was brought to the ED from her daycare after episodes of vomiting. History from the patient and her daughter revealed a 23 week history of cough while eating, intermittent vomiting, decreased appetite for 12 months, and diffuse abdominal pain (6/10, worse in the epigastric region). Hospital course: Initial CT abdomen/pelvis suggested a colovesical fistula; surgical consult recommended cystogram and possible cystoscopy if findings were equivocal. The patient had a hemoglobin drop to 5.6 on 02/26/25, received 2 units PRBC, and was started on meropenem. Blood cultures grew gram-positive cocci in clusters; urine culture later grew E. coli, prompting a switch to ceftriaxone. Blood sugar was low (57)on one occasion , managed with D5W drip, later discontinued. Repeat CT on 03/01/25 showed no colovesical fistula; surgery signed off, and GI recommended outpatient colonoscopy. Oxygen was weaned off, and home medications resumed. The patient intermittently refused labs and Accu-Cheks despite education. On 03/03/25, she had a temperature of 100.1F, and a midline was placed for IV antibiotics. The patient was discharged to SNF in a stable condition for 2 weeks of IV antibiotics. He was recommended to follow-up with GI outpatient for possible colonoscopy and with urology. Past medical history: CKD, CVA x2, COPD on home oxygen as needed, HFpEF, C diff colitis Past surgical history: Denies Social & Personal history: Lives at home with family, 40 pack-year smoking history, history of heavy alcohol use, history of marijuana use Home medications: Aspirin 81, divalproex 750 b.i.d., donepezil 10 mg, Lasix 20 mg b.i.d., losartan 25 mg daily, metoprolol tartrate 25 b.i.d., triamterene + hydrochlorothiazide Allergies: No known allergy Physical examination on the day of discharge: General Appearance: Cooperative. Well developed. Well nourished. NAD. Head Exam: Normal inspection Neck Exam: Normal inspection. Non-tender. Normal alignment Pulmonary/Respiratory: Chest non-tender. Bilateral breath sounds equal, no crackles, no wheezing. Cardiovascular/Chest: Regular rate and rhythm. No murmurs. No JVD. Peripheral Pulses: 2+ Radial (R). 2+ Radial (L). 2+ Pedal (R). 2+ Pedal (L) Abdominal Exam: Normal bowel sounds. Soft. normal abdomen, no visible veins, tenderness. No hepatospenomegaly. No masses Ankle Exam: Negative ankle edema Lower extremities: Negative lower extremity edema Neuro/Mental Status: A&O x4. Coherent. Thoughts/Psych: Normal thought pattern. Appropriate mood and affect. Good judgement and insight Skin Exam: Normal inspection. Normal color. Warm. Dry Operations or Procedures 1.PROCEDURE(s): CXRP - CHEST PORTABLE REASON: sob ORDER NUMBER(s): [id number], ACCESSION NUMBER(s): [id number] CLINICAL HISTORY: sob TECHNIQUE: Single view of the chest was obtained. COMPARISON: XY CHEST PORTABLE on DOS: 11/20/23, XY CHEST XRAY 1 VIEW on DOS: 11/13/23, XY CHEST XRAY 1 VIEW on DOS: 11/11/23, XY CHEST PORTABLE on DOS: 11/10/23, XR CHEST 1 VIEW on DOS: 11/03/23 FINDINGS: The heart size is mildly enlarged with borderline pulmonary vascular congestion. There is no dense consolidation. IMPRESSION: Borderline pulmonary vascular congestion. 2.PROCEDURE(s): CXR1 - CHEST XRAY 1 VIEW REASON: failed central line. ORDER NUMBER(s): [id number], ACCESSION NUMBER(s): [id number] CHEST RADIOGRAPH Indication: failed central line. Technique: Single frontal view of the chest was obtained. Comparison: XY CHEST PORTABLE on DOS: 02/24/25 Findings: No central line catheter is visualized. Mild pulmonary vascular congestion. No significant pleural effusion. No pneumothorax. Stable cardiomediastinal silhouette. IMPRESSION: No central line catheter is visualized. 3.PROCEDURE(s): ABPL - CT AB PEL WO CON-NO ORAL OR IV REASON: lower abd pain, sepsis, h/o colovesical fistula ORDER NUMBER(s): [id number], ACCESSION NUMBER(s): [id number] CT abdomen and pelvis without contrast INDICATION: lower abd pain, sepsis, h/o colovesical fistula Comparison: CT abdomen and pelvis done 11/20/2023 TECHNIQUE: Serial axial images were performed through the abdomen and pelvis and then reformatted in the sagittal and coronal plane. All CT scans at this medical facility are performed using dose modulation techniques as appropriate to a performed exam including the following: Automated exposure control was utilized; adjustment of the MA and/or KvP according to patient size; and use of iterative reconstruction technique. FINDINGS: Lung bases clear. Heart size enlarged. Retrocardiac hiatal hernia. Liver and spleen are normal in size without focal mass. No renal masses, stones or hydronephrosis. No masses or enlargement of the adrenal glands or pancreas. No biliary dilatation. No gallstones. No distention of bowel loops to suggest mechanical obstruction of bowel. . Significant fecal loading in the colon. Appendix not seen. Atherosclerotic calcification in the aorta and iliac arteries.. No free fluid. Within the pelvis, bladder is smooth walled without stones. Small sigmoid diverticuli without signs of diverticulitisThere is air in the urinary bladder No abnormal masses or fluid collections. IMPRESSION: 1. 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 Retrocardiac hiatal hernia as on previous exam. 3. Recommend study be repeated with IV and oral contrast 4.PROCEDURE(s): PELUS - PELVIC REASON: intermittant bleeding ORDER NUMBER(s): [id number], ACCESSION NUMBER(s): [id number] INDICATION: intermittant bleeding TECHNIQUE: Multiple real-time grayscale transabdominal sonographic images along with color and duplex Doppler of the uterus and ovaries were obtained. COMPARISON: None FINDINGS: The uterus measures uterus has been surgically removed in November 21 2023 cm. The right ovary unremarkable The left ovary unremarkable Both ovaries were not measured. Subsequent color and duplex Doppler interrogation of the ovaries demonstrated symmetric vascular flow to both ovaries, though this does not exclude the possibility of torsion due to the dual blood supply. IMPRESSION: 1. Grossly unremarkable pelvic ultrasound. 2. Uterus surgically removed. 5.PROCEDURE(s): ABPEL - CT AB PELVIS W WO CON-IV ONLY REASON: POSS COLOVESICLE FISTULA ORDER NUMBER(s): [id number], ACCESSION NUMBER(s): [id number] Exam: CT CT AB PELVIS W WO CON-IV ONLY History: POSS COLOVESICLE FISTULA COMPARISON: CT CT ABD PELVIS W CON-ORAL IV on DOS: 11/21/23, CT ABD PELVIS WO CONTRAST on DOS: 01/15/20 Technique: Multidetector spiral CT of the abdomen and pelvis was performed from lung bases to pubic symphysis. Intravenous contrast was administered during this examination. Multiphasic imaging was obtained. Axial, coronal and sagittal multiplanar reformats were performed by the technologist on a separate workstation. Radiation Dose : 1. Abdomen/Pelvis: CTDIvol 25.17mGy, DLP 4.05 mGy*cm. Findings: Lung Bases: Cardiomegaly. Coronary artery calcifications. Vascular calcifications of the aorta. Liver: The liver is normal in size. No focal lesions. Normal hepatic vascular enhancement. Gallbladder and Biliary Tree: Unremarkable Spleen: Unremarkable Pancreas: The pancreas is normal in appearance without focal lesions or abnormal enhancement. Adrenal Glands: Unchanged indeterminate left adrenal nodule measures 1.4 cm. Right adrenal gland is unremarkable. Kidneys: No hydronephrosis. Bladder: Bladder is decompressed with a Lanza catheter and cannot be adequately assessed. Bowel: Large hiatal hernia. The stomach is grossly normal in appearance. Diverticulosis. Fluid and air containing collection abutting the anterior sigmoid colon and left superior aspect of the urinary bladder measures 4.8 x 3.8 cm. This is similar in appearance to CT dated 02/24/2025 and does not opacify with excreted contrast on delayed phase images. The appendix is not visualized; however, no secondary findings of acute appendicitis identified. Ascites: Small volume pelvic free fluid. Lymphadenopathy: No mesenteric, retroperitoneal or periportal lymphadenopathy. Abdominal Wall and Mesentery: Unremarkable. Vasculature: The visualized abdominal aorta is normal in size and caliber. There is calcified atherosclerotic plaque involving the aorta and its branches. Abdominal and pelvic vessels demonstrate normal enhancement. Pelvic Organs: Unremarkable Musculoskeletal: No aggressive focal bony lesions, acute fractures or dislocation. IMPRESSION: Unchanged fluid and air collection abutting the anterior sigmoid colon and left superior aspect of the urinary bladder measuring 4.8 x 3.8 cm. This does not demonstrate opacification with excreted contrast and therefore suggest that it is not a colovesical fistula. Additional differential considerations could include contained perforation from prior diverticular disease. Clinical correlation advised. This is likely not amenable for percutaneous drainage. Radiation optimization: All CT scans at this facility use at least one of these dose optimization techniques: automated exposure control mA and/or kV adjustment per patient size (includes targeted exams where dose is matched to clinical indication) or iterative reconstruction. 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 due to VMN Hyperkalemia Hypoglycemia Discharge Disposition: [facility] Discharge Instruct/Medications Diet: Renal Activity: No Restrictions, As Tolerated Follow Up/Referral: follow up in [facility] clinic follow up with PCP, urology referral follow up with GI for possible colonoscopy Medications: as per EMR Scheduled Albuterol Sulfate (Albuterol Sulfate), 1 VIAL NEB Q6HR, (Reported) Amlodipine Besylate (Amlodipine Besylate), 1 TAB PO DAILY, (Reported) Aspirin (Aspirin Low Dose), 1 TAB PO DAILY, (Reported) Atorvastatin Calcium (Lipitor), 1 TAB PO DAILY, (Reported) Divalproex Sodium (Divalproex Sodium Dr), 750 MG PO BID, (Reported) Donepezil Hydrochloride (Donepezil Hcl), 1 TAB PO DAILY, (Reported) Ferrous Sulfate (Ferosul), 1 TAB PO TID, (Reported) Furosemide (Furosemide), 1 TAB PO BID, (Reported) Losartan Potassium (Losartan Potassium), 1 TAB PO DAILY, (Reported) Metoprolol Tartrate (Lopressor), 1 TAB PO BID, (Reported) Triamterene & Hydrochlorothiaz (Maxzide), 1 TAB PO DAILY, (Reported) Zolpidem Tartrate (Zolpidem Tartrate), 1 TAB PO QPM, (Reported) Scheduled PRN Hydrocodone-Acetaminophen (Hydrocodone Bitartrate/AC 5-325 mg), 1 TAB PO Q6HR PRN for MODERATE TO SEVERE PAIN, (Reported) Ibuprofen Micronized (Ibuprofen), 600 MG PO Q6HPRN PRN Discharge Statement: "Patient was advised to return to the ER or call 911 if any headaches, dizziness, shortness of breath, chest pain, abdominal pain, bleeding, fevers, or worsening of medical condition. Patient was counseled about treatment plan, medications, possible side effects, patientverbalized understanding. All questions were answered to the best of my ability. This discharge took greater then 30 minutes in planning, reviewing documentation, counseling the patient, and discussing with other team members." ASSESSMENT ASSESSMENT Assessment sepsis due to UTI Visit Coding STANDARD RES Billing Provider: LIBBY WEINER MD Date of Service if different f: Mar 04, 2025 Common Visit Codes: 33422-WOV/OBS DISCH DAY >30min SHAMAR ELLISON RESIDENT Mar 04, 2025 18:51
[2025-03-05 01:00] VITALS: BP 139/74; PULSE 75; RESP 19; TEMP 97.9; O2SAT 95
[2025-03-05 05:00] VITALS: BP 130/74; PULSE 73; RESP 20; TEMP 98; O2SAT 73
[2025-03-05 08:00] VITALS: PULSE 71; PULSE 75; RESP 18; O2SAT 96
[2025-03-05 09:00] VITALS: BP 121/75; PULSE 71; RESP 18; TEMP 96.5; O2SAT 96
[2025-03-05 10:00] VITALS: O2SAT 96
--- NOTE | 2025-03-05 12:01 | DVHPN2 ---
Progress Note Date Seen: Mar 05, 2025 Resident Creating Document: BRENNON LEON RESIDENT Medical Necessity Reason Pt with a Central, PICC or Fol: No The following are medically ne: Central Line, Lanza Catheter Subjective Patient reports: No new complaints Objective vital signs Vital Sign Date Time Temp Pulse Resp B/P (MAP) Pulse Ox O2 Delivery O2 Flow Rate FiO2 03/05/25 10:00 96 Room Air 0.0 03/05/25 10:00 21 03/05/25 09:44 71 121/75 03/05/25 09:00 96.5 18 96.5 Total Intake and Output 03/04/25 03/04/25 03/05/25 15:00 23:00 07:00 Intake Total 550 ml 400 ml Output Total 500 ml Balance 50 ml 400 ml medications Current Medications Medications Dose Ordered Sig/Luis Route Start Time Stop Time Status Last Admin Dose Admin Divalproex Sodium 750 mg BID PO 02/24/25 22:00 03/05/25 09:41 750 MG Sennosides 17.2 mg HS PO 02/24/25 22:00 03/04/25 23:23 17.2 MG Albuterol 1.25 mg Q4HPRN PRN NEB 02/25/25 15:30 Cancel Ipratropium [place] 0.5 mg Q4HPRN PRN NEB 02/25/25 15:30 Cancel Aspirin 81 mg DAILY PO 02/26/25 10:00 03/04/25 09:09 81 MG Atorvastatin Calcium 40 mg HS PO 02/25/25 22:00 03/04/25 23:23 40 MG Acetaminophen 650 mg Q6HP PRN PO 02/26/25 01:00 02/27/25 18:03 650 MG Ceftriaxone Sodium 50 ml @ 100 mls/hr DAILY@09 IV 03/01/25 09:00 03/05/25 09:40 100 MLS/HR Metoprolol Succinate 25 mg BID PO 03/01/25 22:00 03/05/25 09:44 25 MG Lisinopril 5 mg DAILY PO 03/02/25 10:00 03/05/25 09:43 5 MG Pantoprazole Sodium 40 mg DAILY@0600 PO 03/03/25 06:00 03/05/25 06:13 40 MG Polyethylene Glycol 17 gm DAILYPRN PRN PO 03/04/25 16:15 Examination Patient lying in bed, in no acute distress General: Obese, afebrile, palor, mucosae are moist Cardiovascular: Regular S1 and S2. No murmurs, gallops or rubs. No JVD elevation. No pedal edema Respiratory: Normal B/L air entry on room air. Clear lung sounds on auscultation Abdomen: Soft, nontender, nondistended, normoactive bowel sounds, no rebound tenderness, no organomegaly, no masses Genitourinary: Deferred MSK/skin: Mobilizes 4 limbs. Skin is dry and warm Neurological: No motor, no sensitive deficits, normal speech. Pupils are isocoric and reactive. Psych/Mental Status: A/Ox3 laboratory and microbiology Laboratory Tests 03/04/25 05:12 Test 03/04/25 05:12 Range/Units Serum Glucose 88 74-106 mg/dL Microbiology Date/Time Source Procedure Growth Status 03/01/25 06:15 Blood Blood Culture - Preliminary NO GROWTH AFTER 72 HOURS OF INCUBATION. Resulted 02/25/25 08:15 Urine - Lan[place] Port Urine Culture - Final Escherichia coli Complete Labs and/or images reviewed: Labs reviewed by me, Image(s) reviewed by me Problem List/Assessment/Plan Problem List/Assessment/Plan Acute colovesical fistula Acute cystitis secondary to above Anemia likely microcytic status post 3 RBC Heart failure with preserved ejection fraction Pulmonary hypertension Morbid obesity CT SCAN ABD PELVIS 1. 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 Retrocardiac hiatal hernia as on previous exam. 3. Recommend study be repeated with IV and oral contrast Plan/Recommendation Stool occult negative. Patient denies having lifetime colonoscopy. Patient will benefit from colonoscopy as outpatient, continue conservative management for now. Follow up with the surgeon and Urology. Continues soft diet, stable to be discharged from GI standpoint. Monitor H&H Protonix 40 mg daily Recommend Urology evaluation Continue IV antibiotics, follow up with cultures Plan discussed with patient in which all questions have been answered Case discussed with Dr. Pritchard Plan discussed with: Patient Dietary Evaluation Review Comments: 1. Mechanical soft Diet 2. Encourage and Monitor PO intakes to meet at least 75% of her needs 3. Offer Ensure High Protein 240ml PO supplements bid if PO intake<50% Expected Outcomes/Goals: Recovered GI function, gradaul wt loss ALI,BRENNON RESIDENT Mar 05, 2025 12:01
--- NOTE | 2025-03-05 17:33 | DVHPNRES ---
Progress Note Date Seen: Mar 05, 2025 Resident Creating Document: SHAMAR ELLISON RESIDENT Medical Necessity Reason Pt with a Central, PICC or Fol: No The following are medically ne: Central Line, Lanza Catheter Subjective Review of Systems Rafia Gambino is a 75-year old female past medical history of CKD was on hemodialysis for 1 month, CVA x2, COPD on home oxygen as needed, HFpEF, C diff colitis who was brought to the ED from her daycare after she was reported to be vomiting. History was elicited from the patient and her daughter Cedric. They mentioned that the patient started having cough while eating since 2-3 weeks, and had episodes of vomiting on and off. The patient also reported that she has had decreased appetite since the last 1-2 months. He also reported having abdominal pain all over, rated as 6/10 in intensity, more in the epigastric area. CT abdomen/pelvis revealed a colovesical fistula for which surgical consult was placed. Surgeon recommended cystogram and evaluation by Urology for possible cystoscopy if cystogram is equivocal. Past medical history: CKD, CVA x2, COPD on home oxygen as needed, HFpEF, C diff colitis Past surgical history: Denies Social & Personal history: Lives at home with family, 40 pack-year smoking history, history of heavy alcohol use, history of marijuana use Home medications: Aspirin 81, divalproex 750 b.i.d., donepezil 10 mg, Lasix 20 mg b.i.d., losartan 25 mg daily, metoprolol tartrate 25 b.i.d., triamterene + hydrochlorothiazide Allergies: No known allergy Patient seen and examined at bedside. Patient is alert and oriented to time, place person and responding to all questions. Eyes: No Pain, No Vision change, No Conjunctivae inflammation, No Eyelid inflammation, No Redness ENT: No Ear pain, No Ear discharge, No Nose pain, No Nose discharge, No Nose congestion, No Mouth pain, No Mouth swelling, No Throat pain, No Throat swelling Cardiovascular: No Chest Pain, No Palpitations, No Orthopnea, No Paroxysmal No Dyspnea, No Edema, No Lt Headedness Respiratory: No Cough, No Dry, No Shortness of breath, No SOB with exertion, No Wheezing, No Hemoptysis, No Pleuritic Pain, No Sputum Gastrointestinal: No Nausea, No Vomiting, Abdominal Pain, No Diarrhea, No Constipation, No Melena, No Hematochezia Genitourinary: No Dysuria, No Frequency, No Incontinence, No Hematuria, No Retention 02/26/25- The patient was seen and evaluated at bedside. Last night her hemoglobin dropped to 5.6, after which he was given 2 units of PRBC and repeat H and H was ordered. The patient has been refusing blood draw for CBC and BMP today. The patient was explained about the importance of the lab work and she demonstrated understanding of the same. We are pending the results of the blood work. GI was consulted and they recommended monitoring H&H and transfusing as needed, and surgical follow up for colovesical fistula. We are pending cystogram for the patient for evaluation of the colovesical fistula, which could be the source of bleeding, but Radiology Services will be available on Saturday. She was started on meropenem. Her blood sugar level was 57, so she was started on D5 W drip at 30 mL/hour, which will be stopped if blood sugar level is more than 180 on Accu-Chek. Blood culture came back positive for g positive cocci in clusters and SOB was negative. The patient had 1 bowel movement yesterday. She was given morphine 1 g IV for abdominal pain. 02/27/25-the patient was seen at bedside today. All labs and charts were reviewed. We will continue with the same management. 02/28/25- the patient was seen and evaluated at bedside. Hemoglobin today 10.5. Urine culture came back positive for E coli. Meropenem was discontinued and patient was started on ceftriaxone. D5W was discontinued . Her home medication amlodipine 10 mg p.o. daily and metoprolol 25 mg p.o. daily were resumed. The patient has been refusing labs and Accu-Cheks, despite being educated about importance of these. 03/01/25- patient was seen at bedside today. She was weaned off the oxygen today and will be observed for any shortness of breath. Repeat abdomen CT showed no colovesical fistula. Surgery was consulted for repeat evaluation. She was started on metoprolol and lisinopril. 03/02/25- the patient was evaluated at bedside today. White Count today was 11.4. Physical therapy request for service was ordered. Surgery evaluated the patient and after reviewing the images mentioned there is no colovesical fistula, so they signed off. GI evaluated the patient and recommended outpatient colonoscopy after discharge. 03/03/25- Patient was seen at bedside today. He had a temperature of 100.1 overnight. Midline was placed for IV antibiotics. Family will be called to discuss regarding discharge plan. 03/04/25- the patient was seen at bedside today. The patient had no fever spikes. Her daughter was bedside and was updated with everything and the discharge plan was discussed with her. 03/05/25- the patient was seen at bedside today. No new complaints. No fever spikes overnight. [facility] was [facility] in a stable condition for IV ceftriaxone for 2 weeks. The patient was recommended to follow up with PCP, GI for colonoscopy and urology. Objective vital signs Vital Sign Date Time Temp Pulse Resp B/P (MAP) Pulse Ox O2 Delivery O2 Flow Rate FiO2 03/05/25 10:00 96 Room Air 0.0 03/05/25 10:00 21 03/05/25 09:44 71 121/75 03/05/25 09:00 96.5 18 96.5 Total Intake and Output 03/04/25 03/04/25 03/05/25 15:00 23:00 07:00 Intake Total 550 ml 400 ml Output Total 500 ml Balance 50 ml 400 ml medications Current Medications Medications Dose Ordered Sig/Luis Route Start Time Stop Time Status Last Admin Dose Admin Albuterol 1.25 mg Q4HPRN PRN NEB 02/25/25 15:30 Cancel Ipratropium [place] 0.5 mg Q4HPRN PRN [facility] 02/25/25 15:30 Cancel Examination General Appearance: Cooperative. Well developed. Well nourished. NAD. Head Exam: Normal inspection Neck Exam: Normal inspection. Non-tender. Normal alignment Pulmonary/Respiratory: Chest non-tender. bilateral decreased breath sounds, no crackles, no wheezing. Cardiovascular/Chest: Regular rate and rhythm. No murmurs. No JVD. Peripheral Pulses: 2+ Radial (R). 2+ Radial (L). 2+ Pedal (R). 2+ Pedal (L) Abdominal Exam: Normal bowel sounds. Soft. normal abdomen, no visible veins, no tenderness, No hepatospenomegaly. No masses Ankle Exam: Negative ankle edema Lower extremities: Negative lower extremity edema Neuro/Mental Status: A&O x4. Coherent. Thoughts/Psych: Normal thought pattern. Appropriate mood and affect. Good judgement and insight Skin Exam: Normal inspection. Normal color. Warm. Dry laboratory and microbiology Laboratory Tests 03/04/25 05:12 Test 03/04/25 05:12 Range/Units Serum Glucose 88 74-106 mg/dL Microbiology Date/Time Source Procedure Growth Status 03/01/25 06:15 Blood Blood Culture - Preliminary NO GROWTH AFTER 72 HOURS OF INCUBATION. Resulted 02/25/25 08:15 Urine - [place] Urine Culture - Final Escherichia coli Complete Labs and/or images reviewed: Labs reviewed by me, Image(s) reviewed by me Problem List/Assessment/Plan Problem List/Assessment/Plan # Sepsis likely due to UTI # Probable Colovesical fistula - CT abdomen pelvis showed air within the urinary bladder raising question for a colovesical fistula - surgery on board- ordered cystogram, shows no colovesical fistula, surgery signed off - IV antibiotics ceftriaxone for 2 more weeks via midline - blood culture- staph epidermidis, repeat blood culture -no growth after 72 hrs - urine culture - E coli - soft mechanical diet # Acute Microcytic hypochromic anemia s/p 3 pRBCc # Probable Anemia of chronic disease # Rule out GI bleed - monitor hemoglobin and keep above 7 - stool occult blood negative - repeat UA showed 2+ blood # Severe Constipation # Hiatal hernia # GERD - IV Protonix 40 mg daily - MiraLax and senna # Acute on chronic hypoxic respiratory failure # COPD - duo nebs q.6 hours - keep saturation between 88-92% # HFpEF with EF 55% # Probable pulmonary hypertension # Hypertensive heart disease - echo from October 2023 showed LVEF 55% to with the RVSP 38 mmHg - repeat echo- LVEF 65%, severe septal hypertrophy - metoprolol 25 mg p.o. b.i.d. and lisinopril 5 mg p.o. 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 Lorenzo Plan discussed with: Patient Dietary Evaluation Review Comments: 1. Mechanical soft Diet 2. Encourage and Monitor PO intakes to meet at least 75% of her needs 3. Offer Ensure High Protein 240ml PO supplements bid if PO intake<50% Expected Outcomes/Goals: Recovered GI function, gradaul wt loss Visit Coding STANDARD RES Billing Provider: LIBBY WEINER MD Date of Service if different f: Mar 05, 2025 Common Visit Codes: [id number] INP/OBS CARE(HIGH) SHAMAR ELLISON RESIDENT Mar 05, 2025 17:33
== END 2025-03-05 12:16 | DRG 871 ==
LOC: ER 12:33 → OVERFLOW 16:24 → TELE-WESTW 21:38
PROVIDERS: ADMIT Student in an Organized Health Care Education/Training Program; ATTEND Student in an Organized Health Care Education/Training Program
PROC: 30233N1 Transfusion of Nonautologous Red Blood Cells into Peripheral Vein, Percutaneous Approach (ICD-10-PCS; principal; 2025-02-24)
PROC: 06HY33Z Insertion of Infusion Device into Lower Vein, Percutaneous Approach (ICD-10-PCS; 2025-02-24)
PROC: B54CZZA Ultrasonography of Left Lower Extremity Veins, Guidance (ICD-10-PCS; 2025-02-24)
PROC: 05HA33Z Insertion of Infusion Device into Left Brachial Vein, Percutaneous Approach (ICD-10-PCS; 2025-03-03)
PROC: B54NZZA Ultrasonography of Left Upper Extremity Veins, Guidance (ICD-10-PCS; 2025-03-03)
DX: A41.51 Sepsis due to Escherichia coli [E. coli] (principal); J96.21 Acute and chronic respiratory failure with hypoxia; N17.0 Acute kidney failure with tubular necrosis; N18.6 End stage renal disease; I13.2 Hypertensive heart and chronic kidney disease with heart failure and with stage 5 chronic kidney disease, or end stage renal disease; I27.20 Pulmonary hypertension, unspecified; N30.00 Acute cystitis without hematuria; J44.1 Chronic obstructive pulmonary disease with (acute) exacerbation; D63.1 Anemia in chronic kidney disease; F03.90 Unspecified dementia, unspecified severity, without behavioral disturbance, psychotic disturbance, mood disturbance, and anxiety; E66.01 Morbid (severe) obesity due to excess calories; I50.30 Unspecified diastolic (congestive) heart failure; Z20.822 Contact with and (suspected) exposure to COVID-19; E87.5 Hyperkalemia; D50.9 Iron deficiency anemia, unspecified; K21.9 Gastro-esophageal reflux disease without esophagitis; K59.00 Constipation, unspecified; K44.9 Diaphragmatic hernia without obstruction or gangrene; E16.2 Hypoglycemia, unspecified; K57.30 Diverticulosis of large intestine without perforation or abscess without bleeding; Z99.81 Dependence on supplemental oxygen; Z90.710 Acquired absence of both cervix and uterus; Z80.9 Family history of malignant neoplasm, unspecified; Z86.73 Personal history of transient ischemic attack (TIA), and cerebral infarction without residual deficits; Z79.899 Other long term (current) drug therapy; Z82.49 Family history of ischemic heart disease and other diseases of the circulatory system; Z68.35 Body mass index [BMI] 35.0-35.9, adult
CPT/HCPCS: 36415; 36430; 36556; 71045; 74176; 74178; 76856; 80048; 80053; 80076; 80202; 81001; 82270; 82378; 82565; 82962; 83036; 83605; 83615; 84132; 85007; 85014; 85018; 85025; 85027; 85045; 85610; 85730; 86850; 86900; 86901; 86922; 87040; 87077; 87086; 87088; 87186; 87426; 87804; 92610; 93005; 93306; 94640; 96365; 96375; 96376; 99291; 99292; G0378; J1815; J2003; J2185; J2470; J2543; J3490